=== PATIENT | female | born 1935 | race Caucasian/White ===

== ENCOUNTER → 2016-08-02 | Outpatient (CLI) | payer OTHER, MEDICARE ==
[~2016-08-02] MED LIST: ASPI81TA21 PO; CHOL1000 PO; LEVO112T2 PO; LISI10TA PO; METO25TA56 PO; MULT-506 PO; NAPR1TAB9 PO; NTRGSL/4 UT; OXYC1TAB3 PO; PRILOSEC PO; PRLSR20 PO; SENN8.6T7 PO; SIMV40TA2 PO
[2016-08-02 12:25] LABS: ALT/SGPT 15 U/L (12-78); BLOOD UREA NITROGEN 16 mg/dl (7-18); BUN/CREATININE RATIO 19.8 (10-20); CALCIUM 9.5 mg/dl (8.5-10.1); CARBON DIOXIDE 24 mmol/L (21-32); CHLORIDE 108 mmol/L (98-107); CHOLESTEROL 153 mg/dl (0-200); CREATININE 0.81 mg/dl (0.60-1.20); GLUCOSE 98 mg/dl (70-99); POTASSIUM 4.3 mmol/L (3.5-5.1); SODIUM 141 mmol/L (136-145)
[2016-08-02 12:35] LABS: ALKALINE PHOSPHATASE 68 U/L (45-117); AST/SGOT 18 U/L (15-37); CHOLESTEROL/HDL RATIO 2.2; HDL CHOLESTEROL 70 mg/dl; LDL CHOLESTEROL CALCULATED 59 mg/dl; TRIGLYCERIDES 118 mg/dl (0-150); VERY LOW DENSITY LIPOPROT CALC 24 mg/dl
[2016-08-02 12:40] LABS: ESTIMATED AVERAGE GLUCOSE 128 mg/dl; HA1C FLAG Normal (Normal)
== END | disposition home or self-care (01) ==
LOC: C.LABBFT 07:40
PROVIDERS: ATTEND Nurse Practitioner
DX: R73.01 Impaired fasting glucose (principal); E03.9 Hypothyroidism, unspecified

== ENCOUNTER → 2016-08-15 | Outpatient (CLI) | payer OTHER, MEDICARE ==
--- NOTE | 2016-08-15 11:29 | DIAGNOSTIC IMAGING REPORT ---
LEG LENGTH STUDY (WHOLE LEG) CLINICAL HISTORY: LUMBAR, SACROILIITIS, LEG LENGTH DISCREPANCY COMPARISON STUDY: Pelvis 07/05/2016. 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 There are cortical plates and screws within the distal right fibula and tibia transfixing old, healed fractures. The bones are diffusely osteopenic. Chondrocalcinosis within the bilateral knees with moderate to severe osteoarthritis. No acute fracture or dislocation within the bilateral lower extremities. The right lower extremity hardware appears intact. Mild osteoarthritis within the left hip, unchanged. The pelvis appears normally aligned. The bilateral lower extremities or essentially symmetric in length measured from the superior acetabula through the tibial plafonds. Both legs measure 86.7 cm. The right and left femurs and tibia are also similar in length. IMPRESSION: Overall, similar length of bilateral lower extremities. Additional findings as described above. Electronically signed by: Jevon Kenny M.D. 08/15/2016 11:28 AM Dictated Date/Time: 08/15/2016 11:22 AM
== END | disposition home or self-care (01) ==
LOC: C.RADBC 10:58
PROVIDERS: ATTEND Anesthesiology
DX: M54.5 Low back pain (principal); M46.1 Sacroiliitis, not elsewhere classified; M21.70 Unequal limb length (acquired), unspecified site

== ENCOUNTER → 2016-11-08 | Outpatient (CLI) | payer OTHER, MEDICARE ==
[~2016-11-08] MED LIST changes: -OXYC1TAB3 PO; -PRILOSEC PO
[2016-11-08 13:00] LABS: ALB/GLOB RATIO 1.2 (0.9-2); ALKALINE PHOSPHATASE 55 U/L (45-117); ALT/SGPT 15 U/L (12-78); AST/SGOT 14 U/L (15-37); BLOOD UREA NITROGEN 20 mg/dl (7-18); CARBON DIOXIDE 26 mmol/L (21-32); CHLORIDE 110 mmol/L (98-107); CHOLESTEROL 153 mg/dl (0-200); CREATININE 0.74 mg/dl (0.60-1.20); GLUCOSE 93 mg/dl (70-99); POTASSIUM 4.1 mmol/L (3.5-5.1); SODIUM 143 mmol/L (136-145); TRIGLYCERIDES 80 mg/dl (0-150); VERY LOW DENSITY LIPOPROT CALC 16 mg/dl
[2016-11-08 13:01] LABS: CHOLESTEROL/HDL RATIO 2.1; HDL CHOLESTEROL 74 mg/dl; LDL CHOLESTEROL CALCULATED 63 mg/dl
[2016-11-08 13:06] LABS: CALCIUM 9.8 mg/dl (8.5-10.1)
[2016-11-08 13:08] LABS: ESTIMATED AVERAGE GLUCOSE 128 mg/dl; HA1C FLAG Normal (Normal)
== END | disposition home or self-care (01) ==
LOC: C.LABBFT 07:53
PROVIDERS: ATTEND Nurse Practitioner
DX: E78.5 Hyperlipidemia, unspecified (principal); R73.01 Impaired fasting glucose

== ENCOUNTER → 2017-07-18 | Outpatient (CLI) | payer OTHER, MEDICARE ==
[~2017-07-18] MED LIST changes: +ASPI-319 PO; -ASPI81TA21 PO; +METH4PAK PO; +OXYC-90 PO; -PRLSR20 PO; -SENN8.6T7 PO
== END | disposition home or self-care (01) ==
LOC: C.LABBFT 10:19
PROVIDERS: ATTEND Nurse Practitioner
DX: E03.9 Hypothyroidism, unspecified (principal)

== ENCOUNTER 2017-07-30 01:14 | Emergency (ER) | payer OTHER, MEDICARE ==
[~2017-07-30] VITALS: Ht 162.6 cm; Wt 77.6 kg
[~2017-07-30 01:14] MED LIST changes: -ASPI-319 PO; +ASPI81TA21 PO; -METH4PAK PO; -OXYC-90 PO
[2017-07-30 01:17] VITALS: TEMP 36.4; Ht 162.6 cm; Wt 77.6 kg
[2017-07-30] MEDS ORDERED: DiphenhydrAMINE HCL 50 MG/ML VIAL IV STA (02:04)
[2017-07-30] MEDS ORDERED: FAMOTIDINE 20MG/5ML IV PUSH IV STA (02:04)
--- NOTE | 2017-07-30 02:05 | EMERGENCY ROOM VISIT NOTE ---
History Report prepared by Tristan: Danielle Wu Under the Supervision of: Whit PerryO. First contact with patient: 01:41 Chief Complaint: RASH Stated Complaint: RASH,ITCHY History of Present Illness The patient is a 81 year old female who presents to the Emergency Room with complaints of a worsening rash beginning about six hours ago. The patient states that her rash started on her right arm and has since spread to her abdomen, pelvis, back, and bilateral arms. She states the rash is itchy but she denies any oozing or weeping from the rash. The patient is unsure of what could have caused the rash. She denies any recent changes in her daily routine. She denies any new lotions, supplements, medications, foods, or recent travel. Pt denies headache, change in vision, fevers, chest pain, shortness of breath, nausea, vomiting, diarrhea, pain with urination, and melena. The only change the patient can think of is that she started using CBD oil two months ago. Source of History: patient Onset: 6 hours ago Position: other (generalized) Quality: other (rash) Timing: worsening Associated Symptoms: No fevers, No headache, No chest pain, No SOB, No nausea, No vomiting, No abdominal pain, No diarrhea Review of Systems See HPI for pertinent positives & negatives. A total of 10 systems reviewed and were otherwise negative. Past Medical & Surgical Medical Problems: (1) Hx of myocardial infarction (2) Hypertension (3) Spinal stenosis Surgical Problems: (1) History of cataract surgery Family History Diabetes mellitus FH: cancer FH: heart disease Hypertension Social History Smoking Status: Never Smoker Alcohol Use: none Housing Status: lives alone Occupation Status: retired Current/Historical Medications Scheduled Aspirin Enteric Coated (Ecotrin Or Generic), 81 MG PO LUNCH Cholecalciferol (Vitamin D3), 1 TAB PO DAILY Levothyroxine Sodium (Synthroid), 112 MCG PO QAM Lisinopril (Prinivil), 10 MG PO QPM Metoprolol Tartrate (Lopressor) (Lopressor), 50 MG PO BID Multivitamin (Multivitamin), 1 TAB PO LUNCH Nitroglycerin (Nitrostat), 0.4 MG UT PRN Simvastatin (Zocor), 40 MG PO HS Scheduled PRN Naproxen (Aleve), 220 MG PO Q12 PRN for Pain Allergies Coded Allergies: No Known Allergies (Verified , 10/03/16) Physical Exam Vital Signs Date Time Temp Pulse Resp B/P (MAP) Pulse Ox O2 Delivery O2 Flow Rate FiO2 07/30/17 03:15 61 16 157/79 98 Room Air 07/30/17 02:36 58 18 168/82 98 Room Air 07/30/17 01:17 36.4 64 18 157/83 97 Room Air Physical Exam GENERAL: alert, well appearing, well nourished, no distress, non-toxic EYE EXAM: normal conjunctiva, PERRL and EOM's grossly intact OROPHARYNX: no exudate, no erythema, lips, buccal mucosa, and tongue normal and mucous membranes are moist NECK: supple, no nuchal rigidity, no adenopathy, non-tender LUNGS: Clear to auscultation. Normal chest wall mechanics HEART: no murmurs, S1 normal and S2 normal ABDOMEN: abdomen soft, non-tender, normo-active bowel sounds, no masses, no rebound or guarding. BACK: Back is symmetrical on inspection and there is no deformity, no midline tenderness, no CVA tenderness. SKIN: diffuse urticaria, no vesicles, no bullae, no sloughing, no petechiae UPPER EXTREMITIES: upper extremities are grossly normal. LOWER EXTREMITIES: No pitting edema. NEURO EXAM: Normal sensorium, cranial nerves II-XII grossly intact, normal speech, no gross weakness of arms, no gross weakness of legs. Medical Decision & Procedures Medications Administered Medications (Trade) Dose Ordered Sig/Torrey Route Start Time Stop Time Status Last Admin Dose Admin Diphenhydramine HCl (Benadryl Inj) 25 mg NOW STAT IV 07/30/17 02:04 07/30/17 02:05 DC 07/30/17 02:12 25 MG Famotidine (Pepcid 20mg Iv Push) 20 mg ONE STAT IV 07/30/17 02:04 07/30/17 02:05 DC 07/30/17 02:12 20 MG Dexamethasone Sodium Phosphate (Decadron Inj) 10 mg NOW STAT IV 07/30/17 02:55 07/30/17 02:57 DC 07/30/17 03:01 10 MG ED Course 0151: The patient was evaluated in room A3. A complete history and physical exam was performed. 0204: Ordered Famotidine 20 mg IV, Benadryl Inj 25 mg IV. 0252: On reassessment, the patient still has a mild rash. She states she is feeling much better. 0255: Ordered Decadron Inj 10 mg IV. 311: Upon reevaluation, the patient is feeling better. I discussed the findings and the treatment plan with the patient. She verbalizes agreement and understanding. The patient was discharged home. Medical Decision Differential diagnosis: Etiologies such as contact dermatitis, viral exanthem, urticaria, allergic reaction, De Los Santos-Raj syndrome, toxic epidermal necrolysis, erythema multiforme, cellulitis, scabies, HSV, varicella, zoster, eczema, staph scalded skin syndrome, fungal infection, as well as others were entertained. Patient with apparent allergic reaction of unknown etiology. I do not suspect De Los Santos-Raj syndrome or [place]. Rash not consistent in appearance with erythema multiforme, cellulitis, shingles, measles, no other evidence or recent symptoms to suggest additional infectious etiology. Patient responded well here to famotidine and diphenhydramine. Discussed with her close follow-up with family doctor, use of those medications from [id number] at home, symptoms to watch and return for, she verbalized understanding was agreeable with plan. No involvement of the patient's face or airway, no other systemic symptoms beyond the rash to otherwise suggest anaphylaxis. Medication Reconcilliation Current Medication List: was personally reviewed by me Blood Pressure Screening Patient's blood pressure: Elevated blood pressure Blood pressure disposition: Elevated BP felt to be situational Impression Primary Impression: Urticaria Additional Impression: Allergic reaction Scribe Attestation The scribe's documentation has been prepared under my direction and personally reviewed by me in its entirety. I confirm that the note above accurately reflects all work, treatment, procedures, and medical decision making performed by me. Departure Information Dispostion Home / Self-Care Referrals Lorenza Alcantara, C.R.N.P. (PCP) Forms HOME CARE DOCUMENTATION FORM, IMPORTANT VISIT INFORMATION, WORK / SCHOOL INSTRUCTIONS Patient Instructions My [facility] Additional Instructions Please follow-up with your family doctor. Please continue your normal medications as prescribed. You may use diphenhydramine (Benadryl) up to every 6 -8 hours. Please take it over the next 48 hours to prevent a rebound reaction and then use as needed after that. Famotidine (pepcid) is over the counter and may be used also. If you develop a worsening rash, develop facial/tongue swelling, trouble swallowing, trouble speaking, trouble breathing, chest pain, dizziness, the rash begins to have blisters or is weeping, or you have any other new concerns, please return to the emergency room. Problem Qualifiers Additional Impression: Allergic reaction Encounter type: initial encounter Qualified Codes: T78.40XA - Allergy, unspecified, initial encounter
[2017-07-30] MEDS ORDERED: DEXAMETHASONE SOD INJ 4 MG/ML VIAL IV STA (02:55)
[2017-07-30 03:15] VITALS: BP 157/79; PULSE 61; O2SAT 98
== END 2017-07-30 03:18 | disposition home or self-care (01) ==
LOC: C.EDB 01:15 → C.EDA 03:18
DX: L50.9 Urticaria, unspecified (principal); T78.40XA Allergy, unspecified, initial encounter; X58.XXXA Exposure to other specified factors, initial encounter; I25.2 Old myocardial infarction; I10 Essential (primary) hypertension; M48.00 Spinal stenosis, site unspecified; Z83.3 Family history of diabetes mellitus; Z80.9 Family history of malignant neoplasm, unspecified; Z82.49 Family history of ischemic heart disease and other diseases of the circulatory system; Z79.82 Long term (current) use of aspirin; Z79.899 Other long term (current) drug therapy

== ENCOUNTER 2017-08-20 11:47 | Emergency (ER) | payer OTHER, MEDICARE ==
[~2017-08-20] VITALS: Ht 162.6 cm; Wt 79.0 kg
[2017-08-20 12:17] VITALS: TEMP 37.9; Ht 162.6 cm; Wt 79.0 kg
[2017-08-20] MEDS ORDERED: ONDANSETRON INJ 2 MG/ML 2 ML VIAL IV STA (12:33)
[2017-08-20] MEDS ORDERED: DEXAMETHASONE INJ 10 MG in SYRINGE 0 ML IV STA (12:33)
[2017-08-20] MEDS ORDERED: MoRPHine SULFATE 4 MG/ML 1 ML CARP\\VIAL IV STA ×2 (12:33→14:44)
[2017-08-20] MEDS ORDERED: OXYC1TAB3 PO (12:42)
[2017-08-20 13:13] LABS: BASO % 0.2 %; BASO ABS # 0.02 K/uL (0-0.2); EOS % 0.1 %; EOS ABS # 0.01 K/uL (0-0.5); HEMATOCRIT 39.4 % (37-47); HEMOGLOBIN 12.9 g/dL (12.0-16.0); IG# 0.01 K/uL (0.00-0.02); LYMPH % 14.8 %; LYMPH ABS # 1.19 K/uL (1.2-3.4); MEAN CORPUSCULAR HEMOGLOBIN 28.2 pg (25-34); MEAN CORPUSCULAR HGB CONC 32.7 g/dl (32-36); MEAN PLATELET VOLUME 9.9 fL (7.4-10.4); MONO % 14.4 %; MONO ABS # 1.16 K/uL (0.11-0.59); NEUT % 70.4 %; NEUT ABS # 5.67 K/uL (1.4-6.5); PLATELET COUNT 143 K/uL (130-400); RED CELL DISTRIBUTION WIDTH CV 15.7 % (11.5-14.5); RED CELL DISTRIBUTION WIDTH SD 49.4 fL (36.4-46.3); WHITE BLOOD COUNT 8.06 K/uL (4.8-10.8)
[2017-08-20 13:25] LABS: PTT PATIENT 27.1 SECONDS (21.0-31.0)
[2017-08-20 13:30] LABS: CALCIUM 9.2 mg/dl (8.5-10.1); CREATININE 0.71 mg/dl (0.60-1.20); POTASSIUM 3.8 mmol/L (3.5-5.1)
--- NOTE | 2017-08-20 13:43 | DIAGNOSTIC IMAGING REPORT ---
L-SPINE MIN 4 VIEWS ROUTINE HISTORY: 81 years-old Female low back pain chronic low back pain without reported trauma COMPARISON: Lumbar spine CT 06/11/2016 TECHNIQUE: 5 views of the lumbar spine FINDINGS: Levoscoliosis of the lumbar spine redemonstrated. The bones appear moderately demineralized. Severe multilevel intervertebral space narrowing, facet arthrosis and endplate spurring. There is progressive anterior endplate compression deformity of the L1 vertebral body, now 30%, recently 20% on study dated 06/11/2016. Right hip arthroplasty partially imaged. Moderate stool volume of the right hemicolon. Atherosclerosis of the aorta. IMPRESSION: 1. Age-indeterminate progressive anterior endplate compression deformity of the L1 vertebral body, now measuring 30% which has worsened from comparison CT 06/11/2016. 2. Levoscoliosis with severe multilevel intervertebral disc space narrowing, endplate spurring and facet arthrosis. 3. Moderately demineralized appearance of the bones. The above report was generated using voice recognition software. It may contain grammatical, syntax or spelling errors. Electronically signed by: Kelvin Matt M.D. 08/20/2017 1:42 PM Dictated Date/Time: 08/20/2017 1:38 PM
[2017-08-20 15:03] VITALS: BP 132/66; PULSE 81; O2SAT 95
--- NOTE | 2017-08-20 15:51 | DIAGNOSTIC IMAGING REPORT ---
L VENOUS DOPP LOWER EXT UNILAT CLINICAL HISTORY: 81 years-old Female presenting with lower leg pain and swelling. TECHNIQUE: Real-time grayscale and color and spectral Doppler ultrasound imaging of the veins of the left lower extremity was performed. Compression and augmentation were also utilized. COMPARISON: None. FINDINGS: Left: Common femoral vein: Patent. Greater saphenous vein: Patent. Deep femoral vein: Patent. Femoral vein: Patent. Popliteal vein: Patent. Calf veins: Patent. Other: None. IMPRESSION: No evidence of deep venous thrombosis. Electronically signed by: Rex Barnett M.D. 08/20/2017 3:50 PM Dictated Date/Time: 08/20/2017 3:49 PM
[2017-08-20] MEDS ORDERED: METH4PAK PO (16:29)
--- NOTE | 2017-08-20 16:31 | EMERGENCY ROOM VISIT NOTE ---
History First contact with patient: 12:24 Chief Complaint: BACK PAIN Stated Complaint: BACK PAIN,SEVERE, LEG PAIN History of Present Illness The patient is a 81 year old female who presents to the Emergency Room with complaints of low back pain and left leg pain. The patient states she has a history of chronic back pain but states on Sunday night she reached for a car handle and since that time has increased pain in her lower back and in her left leg. She states it was difficult to ambulate due to the pain in her left leg. The patient has been seen at the pain clinic in the past for her chronic low back pain. She took her oxycodone as directed without any relief of the pain. The patient also states that she has chronic left leg swelling but usually it is not painful. The patient denies any recent travel but does sit a lot at home. The patient is not a smoker. She is not on any hormones. The patient denies any prior DVTs. Review of Systems 10 system review was performed and was negative unless stated otherwise history of present illness. Past Medical/Surgical History Medical Problems: (1) Hx of myocardial infarction (2) Hypertension (3) Spinal stenosis Surgical Problems: (1) History of cataract surgery Family History Diabetes mellitus FH: cancer FH: heart disease Hypertension Social History Smoking Status: Never Smoker Alcohol Use: none Housing Status: lives alone Occupation Status: retired Current/Historical Medications Scheduled Aspirin Enteric Coated (Ecotrin Or Generic), 81 MG PO LUNCH Cholecalciferol (Vitamin D3), 1 TAB PO DAILY Levothyroxine Sodium (Synthroid), 112 MCG PO QAM Lisinopril (Prinivil), 10 MG PO QPM Metoprolol Tartrate (Lopressor) (Lopressor), 50 MG PO BID Multivitamin (Multivitamin), 1 TAB PO LUNCH Nitroglycerin (Nitrostat), 0.4 MG UT PRN Simvastatin (Zocor), 40 MG PO HS Scheduled PRN Oxycodone Ir (Roxicodone Ir), 5 MG PO Q8 PRN for Severe Pain Physical Exam Vital Signs Date Time Temp Pulse Resp B/P (MAP) Pulse Ox O2 Delivery O2 Flow Rate FiO2 08/20/17 15:03 81 18 132/66 95 Room Air 08/20/17 12:17 37.9 92 18 143/76 94 Room Air Physical Exam PHYSICAL EXAM: Vital Signs normal: Reviewed Nurse's notes and agree. GEN.: 81- year-old white female appears uncomfortable secondary to pain. MENTAL STATUS: Alert and oriented in no acute distress. LUNGS: Clear to auscultation without wheezes rales or rhonchi. CARDIAC: Regular rate and rhythm without murmur. LUMBAR SPINE: No gross bony abnormality noted. Patient is tender to palpation over the mid to lower spinous processes. She is also tender to palpation the paravertebral regions bilaterally at this level. The patient was unable to ambulate. Limited exam secondary to patient's pain and mobility. Left leg with generalized edema but no erythema noted. The patient is severely tender to palpation over the entire lower extremity as well as in the popliteal region and posterior and medial thigh. No palpable cords noted. Medical Decision & Procedures ER Provider Diagnostic Interpretation: L VENOUS DOPP LOWER EXT UNILAT CLINICAL HISTORY: 81 years-old Female presenting with lower leg pain and swelling. TECHNIQUE: Real-time grayscale and color and spectral Doppler ultrasound imaging of the veins of the left lower extremity was performed. Compression and augmentation were also utilized. COMPARISON: None. FINDINGS: Left: Common femoral vein: Patent. Greater saphenous vein: Patent. Deep femoral vein: Patent. Femoral vein: Patent. Popliteal vein: Patent. Calf veins: Patent. Other: None. IMPRESSION: No evidence of deep venous thrombosis. Electronically signed by: Rex Barnett M.D. 08/20/2017 3:50 PM Dictated Date/Time: 08/20/2017 3:49 PM L-SPINE MIN 4 VIEWS ROUTINE HISTORY: 81 years-old Female low back pain chronic low back pain without reported trauma COMPARISON: Lumbar spine CT 06/11/2016 TECHNIQUE: 5 views of the lumbar spine FINDINGS: Levoscoliosis of the lumbar spine redemonstrated. The bones appear moderately demineralized. Severe multilevel intervertebral space narrowing, facet arthrosis and endplate spurring. There is progressive anterior endplate compression deformity of the L1 vertebral body, now 30%, recently 20% on study dated 06/11/2016. Right hip arthroplasty partially imaged. Moderate stool volume of the right hemicolon. Atherosclerosis of the aorta. IMPRESSION: 1. Age-indeterminate progressive anterior endplate compression deformity of the L1 vertebral body, now measuring 30% which has worsened from comparison CT 06/11/2016. 2. Levoscoliosis with severe multilevel intervertebral disc space narrowing, endplate spurring and facet arthrosis. 3. Moderately demineralized appearance of the bones. The above report was generated using voice recognition software. It may contain grammatical, syntax or spelling errors. Laboratory Results 08/20/17 12:55 Red Blood Count 4.58, Mean Corpuscular Volume 86.0, Mean Corpuscular Hemoglobin 28.2, Mean Corpuscular Hemoglobin Concent 32.7, Mean Platelet Volume 9.9, Neutrophils (%) (Auto) 70.4, Lymphocytes (%) (Auto) 14.8, Monocytes (%) (Auto) 14.4, Eosinophils (%) (Auto) 0.1, Basophils (%) (Auto) 0.2, Neutrophils # (Auto ) 5.67, Lymphocytes # (Auto) 1.19, Monocytes # (Auto) 1.16, Eosinophils # (Auto ) 0.01, Basophils # (Auto) 0.02 08/20/17 12:55 Test 08/20/17 12:55 White Blood Count 8.06 K/uL (4.8-10.8) Red Blood Count 4.58 M/uL (4.2-5.4) Hemoglobin 12.9 g/dL (12.0-16.0) Hematocrit 39.4 % (37-47) Mean Corpuscular Volume 86.0 fL (80-100) Mean Corpuscular Hemoglobin 28.2 pg (25-34) Mean Corpuscular Hemoglobin Concent 32.7 g/dl (32-36) Platelet Count 143 K/uL (130-400) Mean Platelet Volume 9.9 fL (7.4-10.4) Neutrophils (%) (Auto) 70.4 % Lymphocytes (%) (Auto) 14.8 % Monocytes (%) (Auto) 14.4 % Eosinophils (%) (Auto) 0.1 % Basophils (%) (Auto) 0.2 % Neutrophils # (Auto) 5.67 K/uL (1.4-6.5) Lymphocytes # (Auto) 1.19 K/uL (1.2-3.4) Monocytes # (Auto) 1.16 K/uL (0.11-0.59) Eosinophils # (Auto) 0.01 K/uL (0-0.5) Basophils # (Auto) 0.02 K/uL (0-0.2) RDW Standard Deviation 49.4 fL (36.4-46.3) RDW Coefficient of Variation 15.7 % (11.5-14.5) Immature Granulocyte % (Auto) 0.1 % Immature Granulocyte # (Auto) 0.01 K/uL (0.00-0.02) Prothrombin Time 10.6 SECONDS (9.0-12.0) Prothromb Time International Ratio 1.0 (0.9-1.1) Activated Partial Thromboplast Time 27.1 SECONDS (21.0-31.0) Partial Thromboplastin Ratio 1.0 Anion Gap 9.0 mmol/L (3-11) Est Creatinine Clear Calc Drug Dose 62.1 ml/min Estimated GFR () 91.9 Estimated GFR (Non- 79.3 BUN/Creatinine Ratio 23.5 (10-20) Calcium Level 9.2 mg/dl (8.5-10.1) Medications Administered Medications (Trade) Dose Ordered Sig/Torrey Route Start Time Stop Time Status Last Admin Dose Admin Dexamethasone Sodium Phosphate 10 mg/Syringe 2.5 ml @ 1 mls/min NOW STAT IV 08/20/17 12:33 08/20/17 12:37 DC 08/20/17 13:05 1 MLS/MIN Morphine Sulfate (MoRPHine SULFATE INJ) 4 mg NOW STAT IV 08/20/17 12:33 08/20/17 12:37 DC 08/20/17 13:05 4 MG Ondansetron HCl (Zofran Inj) 4 mg NOW STAT IV 08/20/17 12:33 08/20/17 12:37 DC 08/20/17 13:05 4 MG Morphine Sulfate (MoRPHine SULFATE INJ) 4 mg NOW STAT IV 08/20/17 14:44 08/20/17 14:45 DC 08/20/17 14:44 4 MG ED Course IV access was obtained. CBC and differential, renal profile and coags were ordered. The patient was given morphine 4 mg IV for pain and Zofran 4 mg IV push for associated nausea. She was also given Decadron 10 mg IV. X-ray of the lumbar spine was ordered interpreted by the radiologist as above without any acute findings. Labs are reviewed and were unremarkable.. The patient was informed of the lab findings. The patient stated she was still in a lot of pain and therefore she was given additional 4 mg of morphine IV. Venous Doppler ultrasound the left lower extremity was ordered and interpreted by the radiologist as above without any evidence of DVT. The patient's case was discussed with Dr. Hernandez who independently evaluated the patient and agree with treatment plan. The patient was informed of the findings and discharged home with her daughter driving. Medical Decision Differential diagnosis include compression fracture of the lumbar spine, sciatica, DVT, superficial phlebitis [place] Drug Monitoring Program Search Results: patient reviewed within database Medication Reconcilliation Current Medication List: was personally reviewed by me Blood Pressure Screening Patient's blood pressure: Elevated blood pressure Blood pressure disposition: Elevated BP felt to be situational Impression Primary Impression: Lumbar back pain Additional Impression: Left leg pain Departure Information Dispostion Home / Self-Care Condition GOOD Prescriptions Methylprednisolone (MEDROL DOSEPAK) 4 Mg Ankur 0 PO DAILY, #1 PKT Prov: Jennifer Camargo PA-C 08/20/17 Referrals Lorenza Alcantara, C.R.N.P. (PCP) Forms HOME CARE DOCUMENTATION FORM, IMPORTANT VISIT INFORMATION Patient Instructions My [facility] Additional Instructions Take Medrol dosepak as prescribed. Tylenol 500 mg every 4 hours for pain. Increase OxyIR to 10 mg every 8 hours. Follow-up with your family doctor in 2- 3 days for reevaluation. Problem Qualifiers
== END 2017-08-20 16:32 | disposition home or self-care (01) ==
LOC: C.EDB 11:48 → C.EDD 16:32
DX: M54.5 Low back pain (principal); M79.605 Pain in left leg; I10 Essential (primary) hypertension; I25.2 Old myocardial infarction; Z98.49 Cataract extraction status, unspecified eye; Z83.3 Family history of diabetes mellitus; Z82.49 Family history of ischemic heart disease and other diseases of the circulatory system; Z79.82 Long term (current) use of aspirin; Z79.899 Other long term (current) drug therapy

== ENCOUNTER → 2017-11-19 | Outpatient (CLI) | payer OTHER, MEDICARE ==
[~2017-11-19] MED LIST changes: +ASPI-319 PO; -ASPI81TA21 PO; -NAPR1TAB9 PO; +OXYC1TAB3 PO
[2017-11-19 12:11] LABS: HEMATOCRIT 39.8 % (37-47); HEMOGLOBIN 12.7 g/dL (12.0-16.0); MEAN CELL VOLUME 88.4 fL (80-100); MEAN CORPUSCULAR HEMOGLOBIN 28.2 pg (25-34); MEAN CORPUSCULAR HGB CONC 31.9 g/dl (32-36); MEAN PLATELET VOLUME 9.9 fL (7.4-10.4); PLATELET COUNT 181 K/uL (130-400); RED CELL DISTRIBUTION WIDTH CV 15.9 % (11.5-14.5); RED CELL DISTRIBUTION WIDTH SD 51.3 fL (36.4-46.3)
[2017-11-19 12:37] LABS: ALBUMIN 3.3 gm/dl (3.4-5.0); ALT/SGPT 14 U/L (12-78); BLOOD UREA NITROGEN 16 mg/dl (7-18); CARBON DIOXIDE 26 mmol/L (21-32); CREATININE 0.75 mg/dl (0.60-1.20); GLUCOSE 97 mg/dl (70-99); POTASSIUM 4.3 mmol/L (3.5-5.1); SODIUM 140 mmol/L (136-145)
[2017-11-19 12:52] LABS: ALKALINE PHOSPHATASE 68 U/L (45-117); AST/SGOT 16 U/L (15-37); TOTAL PROTEIN 7.2 gm/dl (6.4-8.2)
== END | disposition home or self-care (01) ==
LOC: C.LABBFT 08:14
PROVIDERS: ATTEND Nurse Practitioner
DX: I25.10 Atherosclerotic heart disease of native coronary artery without angina pectoris (principal); E03.9 Hypothyroidism, unspecified

== ENCOUNTER → 2018-01-31 | Outpatient (CLI) | payer OTHER, MEDICARE ==
[~2018-01-31] MED LIST changes: +OXYC-90 PO; -OXYC1TAB3 PO
--- NOTE | 2018-01-31 10:13 | DIAGNOSTIC IMAGING REPORT ---
CHEST 2 VIEWS ROUTINE HISTORY: R06.02 Shortness of breath COMPARISON: Chest 05/25/2012. FINDINGS: The lungs remain mildly hyperexpanded. The heart remains mildly enlarged. No focal lung consolidations to suggest pneumonia. No evidence for pulmonary edema. No pleural effusions. No pneumothorax. IMPRESSION: No significant change compared to the prior study. No acute process. Stable mild cardiomegaly. Electronically signed by: Jevon Kenny M.D. 01/31/2018 10:12 AM Dictated Date/Time: 01/31/2018 10:10 AM
[2018-01-31 10:30] LABS: BASO % 0.5 %; BASO ABS # 0.03 K/uL (0-0.2); EOS % 1.3 %; EOS ABS # 0.08 K/uL (0-0.5); HEMATOCRIT 38.1 % (37-47); HEMOGLOBIN 12.3 g/dL (12.0-16.0); IG# 0.01 K/uL (0.00-0.02); LYMPH % 27.7 %; LYMPH ABS # 1.67 K/uL (1.2-3.4); MEAN CELL VOLUME 87.2 fL (80-100); MEAN CORPUSCULAR HEMOGLOBIN 28.1 pg (25-34); MEAN CORPUSCULAR HGB CONC 32.3 g/dl (32-36); MEAN PLATELET VOLUME 10.6 fL (7.4-10.4); MONO % 11.5 %; MONO ABS # 0.69 K/uL (0.11-0.59); NEUT % 58.8 %; NEUT ABS # 3.54 K/uL (1.4-6.5); PLATELET COUNT 149 K/uL (130-400); RED CELL DISTRIBUTION WIDTH CV 15.2 % (11.5-14.5); RED CELL DISTRIBUTION WIDTH SD 48.2 fL (36.4-46.3); WHITE BLOOD COUNT 6.02 K/uL (4.8-10.8)
[2018-01-31 12:56] LABS: BLOOD UREA NITROGEN 14 mg/dl (7-18); CALCIUM 9.1 mg/dl (8.5-10.1); CARBON DIOXIDE 27 mmol/L (21-32); CREATININE 0.76 mg/dl (0.60-1.20); GLUCOSE 95 mg/dl (70-99); POTASSIUM 4.1 mmol/L (3.5-5.1); SODIUM 140 mmol/L (136-145)
== END | disposition home or self-care (01) ==
LOC: C.RAD 09:23
PROVIDERS: ATTEND Nurse Practitioner
DX: R06.02 Shortness of breath (principal)

== ENCOUNTER → 2018-02-08 | Outpatient (CLI) | payer OTHER, MEDICARE ==
--- NOTE | 2018-02-12 15:08 | ECHOCARDIOGRAM REPORT ---
*NOTICE TO RECEIVING LIBERTARIAN AGENCY This information is strictly Confidential and protected under [place] law. [place] law prohibits you from making any further disclosure of this information unless further disclosure is expressly permitted by the written consent of the person to whom it pertains or is authorized by law. A general authorization for the release of medical or other information is not sufficient for this purpose. Hospital accepts no responsibility if the information is made available to any other person, INCLUDING THE PATIENT. Interpretation Summary * Name: JIMMIE WALTER Study Date: 02/08/2018 02:52 PM BP: 141/49 mmHg * Patient Location: [facility] HR: 58 * : 1935 (M/d/yyyy) Gender: Female Height: 66 in * Age: 82 yrs Ethnicity: CA Weight: 164 lb * Ordering Physician: Lorenza Alcantara * Referring Physician: Lorenza Alcantara * Performed By: Agnieszka Sterling RDCS * * Reason For Study: SOB * BSA: 1.8 m2 * -- Conclusions -- * There is severe calcific aortic valve stenosis. * There is moderate concentric left ventricular hypertrophy. * Ejection Fraction = >70 %. * The right ventricular systolic function is normal. * The left atrium is severely dilated. * The right atrium is severely dilated. Procedure Details * A complete two-dimensional transthoracic echocardiogram was performed (2D, M-mode, Doppler and color flow Doppler). Left Ventricle * The left ventricle is normal in size. * There is moderate concentric left ventricular hypertrophy. * Ejection Fraction = >70 %. Right Ventricle * The right ventricle is normal size. * The right ventricular systolic function is normal. Atria * The left atrium is severely dilated. * The right atrium is severely dilated. * No ASD detected; PFO is not assessed. Mitral Valve * The mitral valve anatomy is normal. * There is mild mitral annular calcification. * There is mild mitral regurgitation. Tricuspid Valve * The tricuspid valve anatomy is normal. * There is mild to moderate tricuspid regurgitation. Aortic Valve * Heavily calcified aortic valve. * There is severe calcific aortic valve stenosis. * There is no significant aortic regurgitation. Pulmonic Valve * The pulmonic valve is not well seen, but is grossly normal. * Trace pulmonic valvular regurgitation. Great Vessels * The aortic root and proximal ascending aorta are normal sized. Pericardium/Pleural * There is no pericardial effusion. MMode 2D Measurements and Calculations IVSd 1.4 cm IVSs 1.4 cm LVIDd 4.1 cm LVIDs 2.3 cm LVPWd 1.7 cm LVPWs 2.3 cm IVS/LVPW 0.83 FS 43.6 % EDV(Teich) 74.0 ml ESV(Teich) 18.3 ml EF(Teich) 75.2 % EDV(cubed) 68.7 ml ESV(cubed) 12.3 ml EF(cubed) 82.0 % % IVS thick -1.52 % % LVPW thick 38.3 % LV mass(C)d 254.8 grams LV mass(C)dI 138.6 grams/m\S\2 LV mass(C)s 174.7 grams LV mass(C)sI 95.1 grams/m\S\2 SV(Teich) 55.7 ml SI(Teich) 30.3 ml/m\S\2 SV(cubed) 56.3 ml SI(cubed) 30.6 ml/m\S\2 ACS 1.1 cm LA dimension 5.0 cm asc Aorta Diam 2.9 cm LVOT diam 1.2 cm LVOT area 1.2 cm\S\2 LVAd ap4 23.6 cm\S\2 LVLd ap4 6.8 cm EDV(MOD-sp4) 68.0 ml EDV(sp4-el) 69.5 ml LVAs ap4 9.7 cm\S\2 LVLs ap4 4.6 cm ESV(MOD-sp4) 19.0 ml ESV(sp4-el) 17.4 ml EF(MOD-sp4) 72.0 % EF(sp4-el) 75.0 % LVAd ap2 24.5 cm\S\2 LVLd ap2 6.7 cm EDV(MOD-sp2) 78.4 ml EDV(sp2-el) 75.8 ml LVAs ap2 11.1 cm\S\2 LVLs ap2 4.8 cm ESV(MOD-sp2) 21.8 ml ESV(sp2-el) 21.7 ml EF(MOD-sp2) 72.1 % EF(sp2-el) 71.3 % LVLd %diff -1.49 % EDV(MOD-bp) 74.3 ml LVLs %diff 4.8 % ESV(MOD-bp) 21.0 ml EF(MOD-bp) 71.7 % SV(MOD-sp4) 49.0 ml SI(MOD-sp4) 26.6 ml/m\S\2 SV(MOD-sp2) 56.5 ml SI(MOD-sp2) 30.7 ml/m\S\2 SV(MOD-bp) 53.3 ml SI(MOD-bp) 29.0 ml/m\S\2 SV(sp4-el) 52.2 ml SI(sp4-el) 28.4 ml/m\S\2 SV(sp2-el) 54.1 ml SI(sp2-el) 29.4 ml/m\S\2 Doppler Measurements and Calculations MV E max ally 153.1 cm/sec MV A max ally 68.5 cm/sec MV E/A 2.2 MV dec time 0.33 sec Ao V2 max 158.8 cm/sec Ao max PG 10.1 mmHg Ao max PG (full) 4.7 mmHg KENAN(V,A) 0.89 cm\S\2 KENAN(V,D) 0.89 cm\S\2 AI max ally 384.8 cm/sec AI max PG 59.2 mmHg AI dec slope 114.4 cm/sec\S\2 AI P1/2t 984.9 msec LV V1 max PG 5.4 mmHg LV V1 max 116.4 cm/sec MR max ally 580.2 cm/sec MR max PG 134.7 mmHg PA V2 max 65.2 cm/sec PA max PG 1.7 mmHg PI end-d ally 56.1 cm/sec TR max ally 300.7 cm/sec
== END | disposition home or self-care (01) ==
LOC: C.CPL 14:41
PROVIDERS: ATTEND Nurse Practitioner
DX: R06.02 Shortness of breath (principal)

== ENCOUNTER 2019-04-21 11:35 | Inpatient (IN) ==
[2019-04-21 12:37] LABS: Basophils # (auto) 0.02 K/uL (0-0.2); Basophils % (auto) 0.3 %; Eosinophils # (auto) 0.03 K/uL (0-0.5); Eosinophils % (auto) 0.4 %; Hematocrit (blood only) 37.9 % (37-47); Hemoglobin 12.3 g/dL (12.0-16.0); Immature Granulocytes # (auto) 0.02 K/uL (0.00-0.02); Immature Granulocytes % (auto) 0.3 %; Lymphocytes # (auto) 1.57 K/uL (1.2-3.4); Lymphocytes % (auto) 23.5 %; Mean Corpuscular Hemoglobin 28.5 pg (25-34); Mean Corpuscular Hgb Conc 32.5 g/dL (32-36); Mean Corpuscular Volume 87.9 fL (80-100); Mean Platelet Volume 9.9 fL (7.4-10.4); Monocytes # (auto) 0.58 K/uL (0.11-0.59); Monocytes % (auto) 8.7 %; Neutrophils # (auto) 4.46 K/uL (1.4-6.5); Neutrophils % (auto) 66.8 %; Platelet Count 175 K/uL (130-400); RDW Coefficient of Variation 15.9 % (11.5-14.5); RDW Standard Deviation 50.7 fL (36.4-46.3); Red Blood Count 4.31 M/uL (4.2-5.4); White Blood Count 6.68 K/uL (4.8-10.8)
[2019-04-21 12:49] LABS: INR 1.2 (0.9-1.1); Partial Thromboplastin Time 26.8 Seconds (21.0-31.0); Prothrombin Time 12.1 Seconds (9.0-12.0)
[2019-04-21 12:54] LABS: Albumin Level 3.6 gm/dl (3.4-5.0); BUN Creatinine Ratio 16.5 (10-20); Calcium 9.1 mg/dl (8.5-10.1); Creatinine Clr Calc Pharmacy 38.5 ml/min; Est GFR (African American) 68.1; Est GFR (Non-African American) 58.7; Magnesium 1.8 mg/dl (1.8-2.4); Potassium 3.6 mmol/L (3.5-5.1)
[2019-04-21 13:07] LABS: Albumin Globulin Ratio 0.9 (0.9-2); Bilirubin,Total 1.1 mg/dl (0.2-1); Total Protein 7.6 gm/dl (6.4-8.2); Troponin I 0.397 ng/ml (0-0.045)
[2019-04-21] MEDS ORDERED: Heparin IV Standard *NO* Bolus IV ONE (13:16)
--- NOTE | 2019-04-21 13:17 | Ultrasound Report ---
US venous doppler LE LT CLINICAL HISTORY: 83 years-old Female presenting with Dyspnea. TECHNIQUE: Real-time grayscale and color and spectral Doppler ultrasound imaging of the veins of the left lower extremity was performed. Compression and augmentation were also utilized. COMPARISON: None. FINDINGS: LEFT: Common femoral vein: Patent. Greater saphenous vein (superficial): Patent. Deep femoral vein: Patent. Femoral vein: Patent. Popliteal vein: Patent. Calf veins: Patent. Other: Fluid collection in the anterior knee superficial to the patella measuring 5.0 x 1.3 cm. IMPRESSION: 1. No evidence of deep venous thrombosis. 2. Superficial fluid collection in the anterior knee may represent hematoma. This does not appear to be deep to the quadriceps muscle complex to suggest a distended suprapatellar recess in the setting of a joint effusion. Electronically signed by: Rex Barnett M.D. 04/21/2019 1:16 PM
--- NOTE | 2019-04-21 13:22 | XRay Report ---
XR chest 1V not portable HISTORY: Dyspnea COMPARISON: Chest 01/31/2018. FINDINGS: The cardiac silhouette is enlarged. There are trace bilateral pleural effusions. No focal l virgie consolidations to suggest pneumonia. Slight prominence of the perihilar interstitial and vascular markings. This could represent mild congestive change without overt pulmonary edema. IMPRESSION: 1. Cardiomegaly and trace bilateral pleural effusions. 2. Mild central pulmonary vascular congestion without overt edema. Electronically signed by: Jevon Kenny M.D. 04/21/2019 1:21 PM
[2019-04-21] MEDS: HEPARIN SODIUM/DEXTROSE 25,000 UNITS/500 ML BAG IV SCH (14:20)
--- NOTE | 2019-04-21 14:52 | History & Physical Report ---
Date of Service April 21, 2019 Assessment & Plan (1) Atrial fibrillation: Patient with new onset atrial fibrillation, presently rate controlled, heparin gtt initiated in ER. She has a small PFO identified by [facility] in May 2018 also with valvular heart disease, severe calcific , moderate MR and moderate/severe TR and bi-atrial dilation. Symptoms of SOB/SCHNEIDER as well as clinical findings of edema and pulmonary vascular congestion and small pleural effusions on CXR suggest some decompensated CHF. May need to consider rhythm controlling agents as patient does not seem to be tolerating her AF, she is quite complicated given her . -Admit to PCU, continuous cardiac monitoring -Check BNP -Check TSH and T4 -Trend troponin x 3 sets -Check 2D echocardiogram -Electrolyte repletion as needed -Cardiology consultation - assistance with this case appreciated -Continue Metoprolol 50mg po BID -Heparin gtt for now, transition to oral anticoagulation tomorrow -Metoprolol PRN Present on Admission?: Yes (2) Shortness of breath: Suspect some CHF in setting of new onset atrial fibrillation. No respiratory distress, adequate oxygenation on room air -Continue Lasix 20mg po daily -Lasix 40mg po x 1 additional dose - cautious diuresis in patient with severe to avoid decreased pre-load -Supplemental O2 as needed Present on Admission?: Yes (3) Elevated troponin: Troponin = 0.397. EKG with subtle TW changes in lateral leads. Patient with known history of CAD s/p proximal LAD stent placed in 2010. Repeat cardiac catheterization in May 2018 with patent stent and non-obstructive CAD -Continue ASA -Continue Simvastatin -Continue Metoprolol -Trend troponin q 8 hours -Cardiology consultation as above Present on Admission?: Yes (4) Aortic stenosis, severe: Patient clinically stable at present. Severe complicates management of AF as well as CHF -Lasix 40mg po x 1 then continue regular daily dosing -Echo as above -Cardiology consultation as above Present on Admission?: Yes (5) Coronary artery disease: As above Present on Admission?: Yes (6) Hyperlipidemia: Chronic -Continue statin Present on Admission?: Yes (7) Hypothyroidism: Chronic -Check TSH -Continue Synthroid Present on Admission?: Yes (8) Knee pain: Patient with knee pain x 2 weeks. Superficial fluid collection in anterior knee. +edema on exam, pain with palpation of knee and posterior fossa -Ortho consultation appreciated -Pain control PRN F/E/N - Heplock. Lasix as above. Monitor electrolytes and replete as needed. Heart healthy diet as tolerated Ppx - Heparin gtt as above Code - DNR/DNI per discussion with patient Dispo - Admit to PCU Present on Admission?: Yes History of Present Illness Chief Complaint: New onset atrial fibrillation Primary Care Provider: ABIGAIL Watson Ale Escobedo is a pleasant 83yo C female with history of CAD s/p NSTEMI with proximal LAD stent placement in 2010, severe calcific aortic stenosis presenting with new onset atrial fibrillation. Patient reports 2 weeks of LE edema, L > R as well as dyspnea with minimal exertion of appx 50 feet. Also with occasional SOB at rest. Also reports some exertional chest heaviness which is relieved with rest. She denies non-exertional chest discomfort, denies palpitations, orthopnea, PND, denies numbness/tingling/weakness. She was seen by her PCP, Lorenza Alcantara, today and was found to be in atrial fibrillation, no history of the same. ER Course: Heparin gtt Prior Cardiology records: [facility] 06/10/18 - Small PFO, no ASD. RV cavity is mildly dilated with normal systolic function. Qualitative LVEF is 55-59% (normal). Moderate secondary MR is present. Moderate to severe TR is present. Mild Aortic valve regurgitation is present. Cardiac Cath 05/2018: Coronary arteries have diffuse minor irregularities with non-obstructive CAD. Previously placed stent in the proximal LAD has no in- stent restenosis. Moderate postcapillary pulmonary hypertension. Step up of oxygen saturation between SVC and RV of 10%. Mean gradient across aortic valve is 16 mmHg indicating no significant stenosis. LVEDP 18mmHg which is mildly elevated Echo 02/05/17: severe calcific aortic stenosis. Moderate LVH, EF > 70%. Normal RV function. Left and right atriums severely dilated. Mild MR, mild to moderate TR Allergies Allergy/AdvReac Type Severity Reaction Status Date / Time doxycycline AdvReac nauseated Verified 04/21/19 12:38 Home Medications Home Medications Medication Instructions Recorded Confirmed Type docusate sodium 100 mg capsule 100 mg PO DAILY cap 11/22/18 04/21/19 History nitroglycerin 0.4 mg sublingual 0.4 mg SL UD PRN tab 11/22/18 04/21/19 History tablet aspirin 81 mg tablet,delayed 81 mg PO DAILY 12/17/18 04/21/19 History release cholecalciferol (vitamin D3) 1,000 1,000 unit PO DAILY 12/17/18 04/21/19 History unit capsule furosemide 20 mg tablet 20 mg PO DAILY 12/17/18 04/21/19 History multivitamin tablet 1 tab PO DAILY 12/17/18 04/21/19 History potassium chloride ER 10 mEq 10 meq PO DAILY 12/17/18 04/21/19 History tablet,extended release ranitidine 150 mg tablet 150 mg PO DAILY PRN 12/17/18 04/21/19 History metoprolol tartrate 50 mg tablet 50 mg PO BID #180 tab 03/27/19 04/21/19 Rx simvastatin 40 mg tablet 40 mg PO HS #90 tab 03/27/19 04/21/19 Rx oxycodone 5 mg tablet 5 - 10 mg PO Q8H PRN #90 tab 03/31/19 04/21/19 Rx oxycodone ER 30 mg tablet,crush 30 mg PO Q12H #50 tab 03/31/19 04/21/19 Rx resistant,extended release 12 hr levothyroxine 112 mcg PO DAILY 04/21/19 04/21/19 History Past Med/Surg History Medical History Hx of myocardial infarction (Resolved) CAD (coronary artery disease) NSTEMI, s/p proximal LAD stent in 2010 Dyslipidemia Hypertension Hypothyroid Severe aortic stenosis Compression fracture of L1 lumbar vertebra (Resolved) Pseudogout of right wrist (Resolved) Surgical History History of cataract surgery History of cataract surgery (Resolved) Family History Other Cancer Heart disease Social History Feels Safe at Home: Yes Smoking Status: Never smoker Hx Alcohol Use: No Hx Substance Use: No Review of Systems Review of Systems: All systems reviewed & are unremarkable except as noted in HPI & below +SCHNEIDER +SOB +Exertional chest discomfort +Nausea +weight loss +Constipation Physical Exam Physical Exam: General: patient resting comfortably, NAD, non-toxic in appearance, AA&O x 4 Skin: warm, dry, intact, no rashes or lesions HEENT: NC/AT, PERRL, EOMI, anicteric sclera, conjunctiva without injection, external ear normal to inspection and nontender, nares patent, moist mucus membranes, dentition intact, no oropharyngeal lesions, neck supple, trachea midline, no LAD, no thyromegaly, no JVD Heart: +S1/S2, irregularly irregular at 86bpm, 3/6 ARMINDA at 2nd right ICS with radiation to carotids, 3/6 ARMINDA at apex to axilla, no rubs/gallops Lungs: equal air entry bilaterally, mildly diminished in bases bilaterally, no rales/rhonchi/wheezes Abd: +BS, soft, NT/ND, no masses/organomegaly/ascites Ext: warm, 2+ pulses in UE/LE bilaterally, no clubbing/cyanosis. 3+ pitting edema of bilateral LE, L > R Neuro: nonfocal, patient AA&O x 4, speech intact, no facial droop, moving all extremities on command with equal strength 5/5 Results & Data Vital Signs (Past 12 Hours) Vital Signs Temp Pulse Resp BP Pulse Ox 04/21/19 11:41 36.7 C 86 20 131/84 97 Laboratory Results Lab Results 04/21/19 04/21/19 04/21/19 Range/Units 12:00 12:00 12:00 WBC 6.68 (4.8-10.8) K/uL RBC 4.31 (4.2-5.4) M/uL Hgb 12.3 (12.0-16.0) g/dL Hct 37.9 (37-47) % MCV 87.9 (80-100) fL MCH 28.5 (25-34) pg MCHC 32.5 (32-36) g/dL RDW Std Deviation 50.7 H (36.4-46.3) fL RDW Coeff of Setve 15.9 H (11.5-14.5) % Plt Count 175 (130-400) K/uL MPV 9.9 (7.4-10.4) fL Immature Gran % (Auto) 0.3 % Neut % (Auto) 66.8 % Lymph % (Auto) 23.5 % [place] % (Auto) 8.7 % Eos % (Auto) 0.4 % Baso % (Auto) 0.3 % Immature Gran # (Auto) 0.02 (0.00-0.02) K/uL Neut # (Auto) 4.46 (1.4-6.5) K/uL Lymph # (Auto) 1.57 (1.2-3.4) K/uL [place] # (Auto) 0.58 (0.11-0.59) K/uL Eos # (Auto) 0.03 (0-0.5) K/uL Baso # (Auto) 0.02 (0-0.2) K/uL PT 12.1 H (9.0-12.0) Seconds INR 1.2 H (0.9-1.1) APTT 26.8 (21.0-31.0) Seconds PTT Ratio 1.0 Sodium 140 (136-145) mmol/L Potassium 3.6 (3.5-5.1) mmol/L Chloride 105 (98-107) mmol/L Carbon Dioxide 26 (21-32) mmol/L Anion Gap 9.0 (3-11) BUN 15 (7-18) mg/dl Creatinine 0.90 (0.6-1.2) mg/dl Est Cr Clr Drug Dosing 38.5 ml/min Est GFR ( Amer) 68.1 Est GFR (Non-Af Amer) 58.7 BUN/Creatinine Ratio 16.5 (10-20) Glucose 97 (70-99) mg/dl Calcium 9.1 (8.5-10.1) mg/dl Magnesium 1.8 (1.8-2.4) mg/dl Total Bilirubin 1.1 H (0.2-1) mg/dl AST 34 (15-37) U/L ALT 23 (12-78) U/L Alkaline Phosphatase 105 (45-117) U/L Troponin I 0.397 H* (0-0.045) ng/ml Total Protein 7.6 (6.4-8.2) gm/dl Albumin 3.6 (3.4-5.0) gm/dl Globulin 4.0 (2.5-4.0) gm/dl Albumin/Globulin Ratio 0.9 (0.9-2) Diagnostic Findings US venous doppler LE LT CLINICAL HISTORY: 83 years-old Female presenting with Dyspnea. TECHNIQUE: Real-time grayscale and color and spectral Doppler ultrasound imaging of the veins of the left lower extremity was performed. Compression and augmentation were also utilized. COMPARISON: None. FINDINGS: LEFT: Common femoral vein: Patent. Greater saphenous vein (superficial): Patent. Deep femoral vein: Patent. Femoral vein: Patent. Popliteal vein: Patent. Calf veins: Patent. Other: Fluid collection in the anterior knee superficial to the patella measuring 5.0 x 1.3 cm. IMPRESSION: 1. No evidence of deep venous thrombosis. 2. Superficial fluid collection in the anterior knee may represent hematoma. This does not appear to be deep to the quadriceps muscle complex to suggest a distended suprapatellar recess in the setting of a joint effusion. Electronically signed by: Rex Barnett M.D. 04/21/2019 1:16 PM Dictated: 04/21/191 Transcribed: 04/21/191310 XR chest 1V not portable HISTORY: Dyspnea COMPARISON: Chest 01/31/2018. FINDINGS: The cardiac silhouette is enlarged. There are trace bilateral pleural effusions. No focal lung consolidations to suggest pneumonia. Slight prominence of the perihilar interstitial and vascular markings. This could represent mild congestive change without overt pulmonary edema. IMPRESSION: 1. Cardiomegaly and trace bilateral pleural effusions. 2. Mild central pulmonary vascular congestion without overt edema. Electronically signed by: Jevon Kenny M.D. 04/21/2019 1:21 PM Dictated: 04/21/191318 Transcribed: 04/21/191318 ECG Additional Comments: AF at 82bpm, low voltage, normal axis, QRS=78, YZx=934, T wave flattening in lateral leads Code Status & VTE Plan Code Status DNR/DNI VTE Prophylaxis Plan VTE Prophylaxis will be ordered: Yes PG Care Time/CCT Total # of Minutes Spent Total Time Spent with Patient: Total time spent is greater than 50% in coordination of care (as documented) at patient's floor/unit and/or counseling p atient: (1) Atrial fibrillation Atrial fibrillation type: unspecified Qualified Code(s): I48.91 - Unspecified atrial fibrillation (2) Coronary artery disease Coronary Disease-Associated Artery/Lesion type: [place] artery [place] vs. transplanted heart: [place] heart Associated angina: with stable angina Qualified Code(s): I25.118 - Atherosclerotic heart disease of [place] coronary artery with other forms of angina pectoris (3) Hyperlipidemia Hyperlipidemia type: unspecified Qualified Code(s): E78.5 - Hyperlipidemia, unspecified (4) Hypothyroidism Hypothyroidism type: unspecified Qualified Code(s): E03.9 - Hypothyroidism, unspecified (5) Knee pain Chronicity: acute Laterality: left Qualified Code(s): M25.562 - Pain in left knee
[2019-04-21] MEDS ORDERED: ACETAMINOPHEN 325 MG TAB PO PRN (16:31)
[2019-04-21] MEDS ORDERED: OXYCODONE HCL IR 5 MG TAB (IMMEDIATE RELEASE) PO PRN (16:31)
[2019-04-21] MEDS ORDERED: METOPROLOL TARTRATE 1 MG/ML VIAL IV PRN (16:31)
[2019-04-21] MEDS ORDERED: FUROSEMIDE 20 MG TAB PO ONE (17:00)
[2019-04-21] MEDS ORDERED: MAGNESIUM SULFATE / D5W 1 GM/100 ML BAG IV ONE (17:00)
[2019-04-21 18:43] LABS: Partial Thromboplastin Ratio 1.9
[2019-04-21 18:44] LABS: Partial Thromboplastin Time 50.9 Seconds (21.0-31.0)
[2019-04-21 18:52] LABS: Phosphorus 2.4 mg/dl (2.5-4.9); Thyroid Stimulating Hormone 2.66 uIu/ml (0.300-4.500)
--- NOTE | 2019-04-21 20:32 | Emergency Department Note ---
Entered by Deann Torres acting as a scribe for Johnathon Castaneda MD History of Present Illness General Chief complaint: Cardiac Assessment Stated complaint: AFIB, EDEMA, SOB, KNEE PAIN Time Seen by Provider: 04/21/19 12:02 Source: patient and family (daughter ) History of Present Illness Onset (ago): hour(s) (just prior to arrival) Location: chest Pain Consistency: + other (episode ) Maximum Pain Intensity: 0 Quality: + other (atrial fibrillation) Associated symptoms: + shortness of breath (persistent over two weeks with exertion and talking) and + other (positive leg swelling; positive pain in legs with walking ); no cough and no fever/chills The patient is a 83 year old white female w/ PMHx HLD, aortic stenosis, CAD status post stents who presents to the ED w/ CC of an episode of atrial fibrillation beginning just prior to arrival. The patient states that she was seen in the [facility] this morning for persistent shortness of breath that began about two weeks ago, left leg swelling that began last week, and right leg swelling that began yesterday. She states that at this visit an ECG was performed and showed atrial fibrillation. The patient states that she does n ot remember ever being in atrial fibrillation previously. Per the patient's daughter at bedside, the patient becomes short of breath with exertion and talking. The patient denies cough, fever, and chills. She reports some pain in her legs with walking. The patient denies any recent injuries or awkward movements. Home Medications Home Medications Medication Instructions Recorded Confirmed Type docusate sodium 100 mg capsule 100 mg PO DAILY cap 11/22/18 04/21/19 History nitroglycerin 0.4 mg sublingual 0.4 mg SL UD PRN tab 11/22/18 04/21/19 History tablet aspirin 81 mg tablet,delayed 81 mg PO DAILY 12/17/18 04/21/19 History release cholecalciferol (vitamin D3) 1,000 1,000 unit PO DAILY 12/17/18 04/21/19 History unit capsule furosemide 20 mg tablet 20 mg PO DAILY 12/17/18 04/21/19 History multivitamin tablet 1 tab PO DAILY 12/17/18 04/21/19 History potassium chloride ER 10 mEq 10 meq PO DAILY 12/17/18 04/21/19 History tablet,extended release ranitidine 150 mg tablet 150 mg PO DAILY PRN 12/17/18 04/21/19 History metoprolol tartrate 50 mg tablet 50 mg PO BID #180 tab 03/27/19 04/21/19 Rx simvastatin 40 mg tablet 40 mg PO HS #90 tab 03/27/19 04/21/19 Rx oxycodone 5 mg tablet 5 - 10 mg PO Q8H PRN #90 tab 03/31/19 04/21/19 Rx oxycodone ER 30 mg tablet,crush 30 mg PO Q12H #50 tab 03/31/19 04/21/19 Rx resistant,extended release 12 hr levothyroxine 112 mcg PO DAILY 04/21/19 04/21/19 History Allergies Allergy/AdvReac Type Severity Reaction Status Date / Time doxycycline AdvReac nauseated Verified 04/21/19 12:38 Past Med/Surg History Medical History Hx of myocardial infarction (Resolved) CAD (coronary artery disease) NSTEMI, s/p proximal LAD stent in 2010 Dyslipidemia Hypertension Hypothyroid Severe aortic stenosis Compression fracture of L1 lumbar vertebra (Resolved) Pseudogout of right wrist (Resolved) Surgical History History of cataract surgery History of cataract surgery (Resolved) Family History Other Cancer Heart disease Social History Preferred Language: Tunisian Beliefs That Will Affect Care: None Current Living Situation: Alone Feels Safe at Home: Yes Smoking Status: Never smoker Hx Alcohol Use: No Hx Substance Use: No Review of Systems See HPI for pertinent positives & negatives. and A total of 10 systems reviewed and were otherwise negative Physical Exam Vital Signs Vital Signs - 24 hr 04/21/19 11:41 04/21/19 12:00 04/21/19 12:20 Temperature 36.7 C Temperature Source Oral Sepsis Recent Fever Within 48 Hours No Sepsis Action Taken by Nursing No Action Required Pulse Rate 86 85 Pulse Rate from SpO2 Sensor Respiratory Rate 20 20 Respiratory Effort / Characteristics Non-Labored Respiratory Depth Normal Blood Pressure 131/84 Blood Pressure Mean 99 Pulse Oximetry 97 Oxygen Delivery Method Room Air Room Air 04/21/19 12:30 04/21/19 14:20 Temperature Temperature Source Sepsis Recent Fever Within 48 Hours Sepsis Action Taken by Nursing Pulse Rate 78 Pulse Rate from SpO2 Sensor 81 Respiratory Rate 15 Respiratory Effort / Characteristics Respiratory Depth Blood Pressure 132/81 Blood Pressure Mean 98 Pulse Oximetry 96 Oxygen Delivery Method Room Air GENERAL: Well appearing, well nourished, NAD, non-toxic. EYE EXAM: Normal conjunctiva. PERRL, no anisocoria and EOM's grossly intact w/o pain. OROPHARYNX: Moist mucus membranes. Grossly normal dentition. NECK: Supple, no nuchal rigidity, no adenopathy, non-tender. no signs of meningismus. LUNGS: Clear to auscultation. Normal chest wall mechanics. HEART: Irregularly irregular rhythm, normal rate. no MRG. ABDOMEN: Abdomen soft, non-tender, normo-active bowel sounds, no masses, no rebound or guarding. BACK: No CVA TTP. SKIN: No rashes and no bruising. UPPER EXTREMITIES: Upper extremities are grossly normal. LOWER EXTREMITIES: Left greater than right lower extremity edema. No redness, no warmth. Negative Homans sign. No calf pain. NEURO EXAM: A&O x3, cranial nerves II-XII grossly intact, normal speech, moves all 4 extremities on command w/o issue. Course 1212: Past medical records reviewed. The patient was evaluated in room C4. A complete history and physical exam was performed. 1230: The patient has a CHADS 2 VASC score of 4. 1321: [facility] for further evaluation. Consultations Consultation #1: [facility] for further evaluation. Time: 13:21 Administered Medications Heparin Sodium/Dextrose (Heparin Sodium/Dextrose) 25,000 units in 500 mls @ 20 mls/hr IV .Q24H NADEGE; Protocol Stop: 05/21/19 13:29 Last Admin: 04/21/19 14:20 Dose: 1,000 units/hr, 20 mls/hr Documented by: [id number] Cosigned by: [id number] Discontinued Medications Furosemide (Lasix) 40 mg PO 1700 ONE Stop: 04/21/19 17:01 Last Admin: 04/21/19 17:07 Dose: 40 mg Documented by: [id number] Heparin Sodium/Dextrose () 1 ea IV ONE ONE; Protocol Stop: 04/21/19 13:17 Last Admin: 04/21/19 20:01 Dose: 1 ea Documented by: [id number] Magnesium Sulfate/Dextrose (Magnesium Sulfate / D5w) 1 gm in 100 mls @ 100 mls/hr IV 1700 ONE Stop: 04/21/19 17:59 Last Infusion: 04/21/19 18:10 Dose: 0 mls/hr Documented by: [id number] Admin: 04/21/19 17:07 Dose: 100 mls/hr Documented by: [id number] Medical Decision Making Medical Records Attestation: I reviewed the patient's medical records. Home Medications Current Medication List: was personally reviewed by sc Laboratory Data Attestation: I reviewed the patient's lab results. Result diagrams: 04/21/19 12:00 04/21/19 12:00 Lab Results 04/21/19 04/21/19 04/21/19 Range/Units 12:00 12:00 12:00 WBC 6.68 (4.8-10.8) K/uL RBC 4.31 (4.2-5.4) M/uL Hgb 12.3 (12.0-16.0) g/dL Hct 37.9 (37-47) % MCV 87.9 (80-100) fL MCH 28.5 (25-34) pg MCHC 32.5 (32-36) g/dL RDW Std Deviation 50.7 H (36.4-46.3) fL RDW Coeff of Steve 15.9 H (11.5-14.5) % Plt Count 175 (130-400) K/uL MPV 9.9 (7.4-10.4) fL Immature Gran % (Auto) 0.3 % Neut % (Auto) 66.8 % Lymph % (Auto) 23.5 % [place] % (Auto) 8.7 % Eos % (Auto) 0.4 % Baso % (Auto) 0.3 % Immature Gran # (Auto) 0.02 (0.00-0.02) K/uL Neut # (Auto) 4.46 (1.4-6.5) K/uL Lymph # (Auto) 1.57 (1.2-3.4) K/uL [place] # (Auto) 0.58 (0.11-0.59) K/uL Eos # (Auto) 0.03 (0-0.5) K/uL Baso # (Auto) 0.02 (0-0.2) K/uL PT 12.1 H (9.0-12.0) Seconds INR 1.2 H (0.9-1.1) APTT 26.8 (21.0-31.0) Seconds PTT Ratio 1.0 Sodium 140 (136-145) mmol/L Potassium 3.6 (3.5-5.1) mmol/L Chloride 105 (98-107) mmol/L Carbon Dioxide 26 (21-32) mmol/L Anion Gap 9.0 (3-11) BUN 15 (7-18) mg/dl Creatinine 0.90 (0.6-1.2) mg/dl Est Cr Clr Drug Dosing 38.5 ml/min Est GFR ( Amer) 68.1 Est GFR (Non-Af Amer) 58.7 BUN/Creatinine Ratio 16.5 (10-20) Glucose 97 (70-99) mg/dl Calcium 9.1 (8.5-10.1) mg/dl Magnesium 1.8 (1.8-2.4) mg/dl Total Bilirubin 1.1 H (0.2-1) mg/dl AST 34 (15-37) U/L ALT 23 (12-78) U/L Alkaline Phosphatase 105 (45-117) U/L Troponin I 0.397 H* (0-0.045) ng/ml Total Protein 7.6 (6.4-8.2) gm/dl Albumin 3.6 (3.4-5.0) gm/dl Globulin 4.0 (2.5-4.0) gm/dl Albumin/Globulin Ratio 0.9 (0.9-2) Imaging Data Radiologist's Impression: Radiology results as stated below per my review and the radiologist's interpretation: US venous doppler LE LT CLINICAL HISTORY: 83 years-old Female presenting with Dyspnea. TECHNIQUE: Real-time grayscale and color and spectral Doppler ultrasound imaging of the veins of the left lower extremity was performed. Compression and augmentation were also utilized. COMPARISON: None. FINDINGS: LEFT: Common femoral vein: Patent. Greater saphenous vein (superficial): Patent. Deep femoral vein: Patent. Femoral vein: Patent. Popliteal vein: Patent. Calf veins: Patent. Other: Fluid collection in the anterior knee superficial to the patella measuring 5.0 x 1.3 cm. IMPRESSION: 1. No evidence of deep venous thrombosis. 2. Superficial fluid collection in the anterior knee may represent hematoma. This does not appear to be deep to the quadriceps muscle complex to suggest a distended suprapatellar recess in the setting of a joint effusion. Electronically signed by: Rex Barnett M.D. 04/21/2019 1:16 PM XR chest 1V not portable HISTORY: Dyspnea COMPARISON: Chest 01/31/2018. FINDINGS: The cardiac silhouette is enlarged. There are trace bilateral pleural effusions. No focal lung consolidations to suggest pneumonia. Slight prominence of the perihilar interstitial and vascular markings. This could represent mild c ongestive change without overt pulmonary edema. IMPRESSION: 1. Cardiomegaly and trace bilateral pleural effusions. 2. Mild central pulmonary vascular congestion without overt edema. Electronically signed by: Jevon Kenny M.D. 04/21/2019 1:21 PM ECG Data Attestation: I personally reviewed and interpreted this ECG as follows: Indication: SOB/dyspnea Rate (beats per minute): 82 Rhythm: atrial fibrillation Findings: + other (normal QRS duration; normal axis; T wave flattening in lateral leads; no ST segment changes) Blood Pressure Blood Pressure Findings: Elevated blood pressure Blood Pressure Disposition: further management by hospitalist MDM Narrative The patient is a 83 year old white female w/ PMHx HLD, aortic stenosis, CAD status post stents who presents to the ED w/ CC of an episode of atrial fibrillation beginning just prior to arrival. Differential diagnoses includes but is not limited to pneumonia, bronchitis, COPD/Asthma exacerbation, pneumothorax, pulmonary embolism, congestive heart failure, acute coronary syndrome, arrhythmia, and others were considered. Patient was seen and evaluated the bedside. The patient has had approximately 2 weeks of increasing shortness of breath dyspnea on exertion but without orthopnea. Patient does have a known history of CAD status post stents as well as aortic stenosis but was noted to be in A. fib this morning. Patient does have an elevated chads 2 vasc score of 4. EKG does show A. fib here but without evidence of ST changes. There may be some subtle T wave flattening in the lateral leads. Patient denies any active chest pains. Patient did a blood work completed along with a left lower extremity ultrasound given that she was noticing some worsening left lower extremity swelling. No erythema calf pain or warmth noted. Patient did have a positive troponin. No EKG changes in terms of ST segment. Will avoid aspirin given that we will start on heparin due to elevated risk for stroke with new onset of A. fib. I did discuss the findings I did speak with the on-call hospitalist who agreed to further evaluate treat the patient. Patient was admitted to the medicine service. Impression & Plan Atrial fibrillation, Shortness of breath, Elevated troponin Critical Care Time Critical Care Time: Yes Total Critical Care Time: 55 I have personally spent greater than 55 minutes of critical care time in direct management of this patient. This includes bedside care, interpretation of diagnostic studies, and testing, discussion with consultants, patient, and family members, and other require inpatient management activities. This 55 minutes is in excess of all separately billable procedures. Discharge Plan Visit Data *Final* Discharge Date/Time: 04/21/19 16:06 Chief Complaint: Cardiac Assessment Stated Complaint: AFIB, EDEMA, SOB, KNEE PAIN ED Provider: Johnathon Castaneda Discharge Problem: Atrial fibrillation, Shortness of breath, Elevated troponin Patient Disposition: Admitted As Inpatient Discharge Instructions Interventions: ED Discharge Assessment Last Done: 04/21/19 16:06 Discharge Problem: Atrial fibrillation Qualifiers: Atrial fibrillation type: unspecified Qualified Code(s): I48.91 - Unspecified atrial fibrillation The scribe's documentation has been prepared under my direction and personally reviewed by me in its entirety. I confirm that the note above accurately reflects all work, treatment, procedures, and medical decision making performed by me.
[2019-04-21] MEDS: SIMVASTATIN 40 MG TAB PO SCH (20:55)
[2019-04-21] MEDS: METOPROLOL TARTRATE 50 MG TAB PO SCH (20:55)
[2019-04-21] MEDS: OXYCODONE HCL 15 MG TABCR (OXYCONTIN) PO SCH (20:55)
[2019-04-22 03:57] LABS: Basophils # (auto) 0.02 K/uL (0-0.2); Basophils % (auto) 0.4 %; Eosinophils # (auto) 0.08 K/uL (0-0.5); Eosinophils % (auto) 1.5 %; Hematocrit (blood only) 32.6 % (37-47); Hemoglobin 10.6 g/dL (12.0-16.0); Lymphocytes # (auto) 2.12 K/uL (1.2-3.4); Lymphocytes % (auto) 39.7 %; Mean Corpuscular Hemoglobin 28.1 pg (25-34); Mean Corpuscular Hgb Conc 32.5 g/dL (32-36); Mean Corpuscular Volume 86.5 fL (80-100); Mean Platelet Volume 9.6 fL (7.4-10.4); Monocytes # (auto) 0.82 K/uL (0.11-0.59); Monocytes % (auto) 15.4 %; Platelet Count 143 K/uL (130-400); RDW Coefficient of Variation 15.9 % (11.5-14.5); RDW Standard Deviation 50.1 fL (36.4-46.3); Red Blood Count 3.77 M/uL (4.2-5.4); White Blood Count 5.34 K/uL (4.8-10.8)
[2019-04-22 04:12] LABS: BUN Creatinine Ratio 15.9 (10-20); Calcium 8.4 mg/dl (8.5-10.1); Creatinine Clr Calc Pharmacy 41.2 ml/min; Est GFR (Non-African American) 63.8; Potassium 3.3 mmol/L (3.5-5.1)
[2019-04-22 04:18] LABS: Partial Thromboplastin Ratio 3.6
[2019-04-22 04:28] LABS: Partial Thromboplastin Time 97.1 Seconds (21.0-31.0)
[2019-04-22 04:29] LABS: Troponin I 0.356 ng/ml (0-0.045)
[2019-04-22] MEDS: LEVOTHYROXINE SODIUM 112 MCG TABLET PO SCH (05:40)
[2019-04-22] MEDS: METOPROLOL TARTRATE 50 MG TAB PO SCH ×2 (08:17→20:45)
[2019-04-22] MEDS: ASPIRIN 81 MG ECTAB PO SCH (08:17)
[2019-04-22] MEDS: DOCUSATE SODIUM 100 MG CAP PO SCH (08:18)
[2019-04-22] MEDS: OXYCODONE HCL 15 MG TABCR (OXYCONTIN) PO SCH ×2 (08:20→20:47)
[2019-04-22] MEDS ORDERED: POTASSIUM CHLORIDE 10 MEQ TABCR PO SCH (09:00)
[2019-04-22] MEDS: MAGNESIUM OXIDE 400 MG TAB PO SCH (09:01)
[2019-04-22] MEDS: POTASSIUM CHLORIDE 10 MEQ TABCR PO SCH ×3 (09:02→20:44)
--- NOTE | 2019-04-22 11:55 | Cardiology Consultation ---
Date of Consultation April 22, 2019 Assessment & Plan (1) Atrial fibrillation: Patient found on incidental examination at time of knee discomfort to have newly observed atrial fibrillation with controlled ventricular response rate. I discussed atrial fibrillation in detail with the patient and daughter. Rates are adequately controlled on current dosing of metoprolol. Patient does have an elevated chads vasc 2 score of 5-6 and warrants chronic anticoagulation. IV heparin already begun Echocardiogram demonstrates marked biatrial enlargement and moderate to severe mitral and tricuspid insufficiency making return to sinus rhythm unlikely Presentation is notable for symptoms consistent with mild to moderate diastolic heart failure secondary to valvular disease and possible mild decompensation secondary to newly observed atrial fibrillation. Recommendations: Continue metoprolol current dosing 50 mg twice per day for rate control. Initiate anticoagulation orally, anemia will need to be followed closely Increase diuretics. 20 mg IV furosemide will be given now. Spironolactone 25 mill grams p.o. daily added to regimen Elevated pulmonary pressures are likely due to valvular disease but nocturnal oximetry will be ordered as part of evaluation (2) Shortness of breath: (3) Diastolic heart failure due to valvular disease: Moderate to severe mitral insufficiency and tricuspid insufficiency is present medical therapies will need to be optimized. History of Present Illness Reason for Consultation: New onset atrial fibrillation, diastolic heart failure Requesting Physician: Dr Ramos Attending Physician: Talha Boateng History of Present Illness Patient is an 83-year-old female with past history of multiple cardiac and noncardiac issues as listed below 1. Atherosclerotic coronary disease status post LAD coronary intervention stent 2010 2. Mixed valvular disease past concerns regarding aortic stenosis. 3. Cardiac catheterization, echo and transesophageal echocardiogram May 2018 demonstrating no obstructive coronary disease, no aortic stenosis, preserved LV systolic function at least moderate mitral tricuspid insufficiency 4. Pulmonary hypertension 5. Small patent foramen ovale 6. Biatrial enlargement 7. Dyslipidemia 8. Hypothyroidism 9. Chronic back pain secondary to spinal stenosis Patient presents this admission noting having sought evaluation by primary care due to complaints of knee pain and discomfort. While there she was noted to have increasing lower extremity edema and did admit to symptoms of exertional dyspnea and shortness of breath. No overt orthopnea. No tachypalpitations syncope or near syncope. EKG however reflected newly observed atrial fibrillation with controlled ventricular response rate she was referred for inpatient management and begun on IV anticoagulation with heparin. Single dose of IV furosemide given last evening Patient denies prior history of TIA or stroke. Notes no history of diabetes mellitus melena hematochezia. Appetite is poor with food is "not tasting good". Has lost weight notes no unexplained fevers or infections. Notes no rash. Predominant complaint is pain and discomfort in her left knee. Initial testing revealed no acute EKG changes troponins are elevated but flat with preserved LV systolic function BNP is elevated. Anemia is noted on admission laboratory testing Echocardiogram today demonstrates preserved LV systolic function. There is no aortic stenosis there is marked biatrial enlargement and moderate to severe mitral and tricuspid insufficiency with moderate elevation in pulmonary pressures Allergies Allergy/AdvReac Type Severity Reaction Status Date / Time doxycycline AdvReac nauseated Verified 04/21/19 12:38 Home Medications Home Medications Medication Instructions Recorded Confirmed Type docusate sodium 100 mg capsule 100 mg PO DAILY cap 11/22/18 04/21/19 History nitroglycerin 0.4 mg sublingual 0.4 mg SL UD PRN tab 11/22/18 04/21/19 History tablet aspirin 81 mg tablet,delayed 81 mg PO DAILY 12/17/18 04/21/19 History release cholecalciferol (vitamin D3) 1,000 1,000 unit PO DAILY 12/17/18 04/21/19 History unit capsule furosemide 20 mg tablet 20 mg PO DAILY 12/17/18 04/21/19 History multivitamin tablet 1 tab PO DAILY 12/17/18 04/21/19 History potassium chloride ER 10 mEq 10 meq PO DAILY 12/17/18 04/21/19 History tablet,extended release ranitidine 150 mg tablet 150 mg PO DAILY PRN 12/17/18 04/21/19 History metoprolol tartrate 50 mg tablet 50 mg PO BID #180 tab 03/27/19 04/21/19 Rx simvastatin 40 mg tablet 40 mg PO HS #90 tab 03/27/19 04/21/19 Rx oxycodone 5 mg tablet 5 - 10 mg PO Q8H PRN #90 tab 03/31/19 04/21/19 Rx oxycodone ER 30 mg tablet,crush 30 mg PO Q12H #50 tab 03/31/19 04/21/19 Rx resistant,extended release 12 hr levothyroxine 112 mcg PO DAILY 04/21/19 04/21/19 History Patient History Medical History Hx of myocardial infarction (Resolved) CAD (coronary artery disease) NSTEMI, s/p proximal LAD stent in 2011 Dyslipidemia Hypertension Hypothyroid Severe aortic stenosis Compression fracture of L1 lumbar vertebra (Resolved) Pseudogout of right wrist (Resolved) Surgical History History of cataract surgery History of cataract surgery (Resolved) Family History Other Cancer Heart disease Social History Preferred Language: Mongolian Communication Ability: Effective Beliefs That Will Affect Care: None Current Living Situation: Alone Feels Safe at Home: Yes Smoking Status: Never smoker Hx Alcohol Use: No Hx Substance Use: No Review of Systems Review of Systems: All systems reviewed & are unremarkable except as noted in HPI & below Physical Exam Constitutional: WD/WN, vitals as above Eyes: PERRL, conjunctivae normal, anicteric sclerae ENMT: external ear and nose normal, oropharynx normal Neck: trachea midline, no thyromegaly Respiratory: normal respiratory effort, lungs clear to auscultation Cardiovascular: Rate/Rhythm: + irregularly irregular Heart Sounds: normal S1, normal S2 and + murmur (Grade 1/6 at apex); no gallop Palpation: normal PMI Vessels: + JVD (Mild jugular venous distention at 30 degrees), normal carotid upstroke and radial pulses present; no carotid bruit Extremities: + edema (1+ bilaterally left greater than right) Gastrointestinal (Abdomen): normal bowel sounds, soft, nontender, no hepatosplenomegaly Musculoskeletal: no cyanosis or clubbing, extremities motor strength 5/5 Skin: no rashes, warm and dry Neurologic: PERRL, EOMI, accommodation nl, no face palsy, no dysarthria Psychiatric: A+Ox3, euthymic affect Results & Data Vital Signs (Past 12 Hours) Vital Signs Temp Pulse Pulse Resp BP BP Pulse Ox 04/22/19 11:11 36.9 C 71 18 116/72 95 04/22/19 08:00 37.2 C 81 20 124/75 98 04/22/19 02:32 36.6 C 66 18 94/57 L 96 04/22/19 00:00 59 L Laboratory Results Laboratory Results - last 24 hr 04/21/19 04/21/19 04/21/19 18:10 18:10 20:01 WBC RBC Hgb Hct MCV MCH MCHC RDW Std Deviation RDW Coeff of Steve Plt Count MPV Immature Gran % (Auto) Neut % (Auto) Lymph % (Auto) [place] % (Auto) Eos % (Auto) Baso % (Auto) Immature Gran # (Auto) Neut # (Auto) Lymph # (Auto) [place] # (Auto) Eos # (Auto) Baso # (Auto) APTT 50.9 H* PTT Ratio 1.9 Sodium Potassium Chloride Carbon Dioxide Anion Gap BUN Creatinine Est Cr Clr Drug Dosing Est GFR ( Amer) Est GFR (Non-Af Amer) BUN/Creatinine Ratio Glucose Calcium Phosphorus 2.4 L Troponin I 0.361 H* NT-Pro-B Natriuret Pep 3483 H TSH 2.660 04/22/19 04/22/19 04/22/19 03:38 03:38 03:38 WBC 5.34 RBC 3.77 L Hgb 10.6 L Hct 32.6 L MCV 86.5 MCH 28.1 MCHC 32.5 RDW Std Deviation 50.1 H RDW Coeff of Steve 15.9 H Plt Count 143 MPV 9.6 Immature Gran % (Auto) 0.0 Neut % (Auto) 43.0 Lymph % (Auto) 39.7 [place] % (Auto) 15.4 Eos % (Auto) 1.5 Baso % (Auto) 0.4 Immature Gran # (Auto) 0.00 Neut # (Auto) 2.30 Lymph # (Auto) 2.12 [place] # (Auto) 0.82 H Eos # (Auto) 0.08 Baso # (Auto) 0.02 APTT 97.1 H* PTT Ratio 3.6 Sodium 144 Potassium 3.3 L Chloride 108 H Carbon Dioxide 29 Anion Gap 7.0 BUN 13 Creatinine 0.84 Est Cr Clr Drug Dosing 41.2 Est GFR ( Amer) 74.0 Est GFR (Non-Af Amer) 63.8 BUN/Creatinine Ratio 15.9 Glucose 84 Calcium 8.4 L Phosphorus Troponin I 0.356 H* NT-Pro-B Natriuret Pep TSH 04/22/19 11:31 WBC RBC Hgb Hct MCV MCH MCHC RDW Std Deviation RDW Coeff of Steve Plt Count MPV Immature Gran % (Auto) Neut % (Auto) Lymph % (Auto) [place] % (Auto) Eos % (Auto) Baso % (Auto) Immature Gran # (Auto) Neut # (Auto) Lymph # (Auto) [place] # (Auto) Eos # (Auto) Baso # (Auto) APTT 71.2 H* PTT Ratio 2.6 Sodium Potassium Chloride Carbon Dioxide Anion Gap BUN Creatinine Est Cr Clr Drug Dosing Est GFR ( Amer) Est GFR (Non-Af Amer) BUN/Creatinine Ratio Glucose Calcium Phosphorus Troponin I NT-Pro-B Natriuret Pep TSH (1) Atrial fibrillation Atrial fibrillation type: unspecified Qualified Code(s): I48.91 - Unspecified atrial fibrillation
[2019-04-22 12:07] LABS: Partial Thromboplastin Ratio 2.6
[2019-04-22 12:16] LABS: Partial Thromboplastin Time 71.2 Seconds (21.0-31.0)
[2019-04-22] MEDS ORDERED: FUROSEMIDE 20 MG in SYRINGE 0 ML IV ONE (12:30)
[2019-04-22] MEDS: SPIRONOLACTONE 25 MG TAB PO SCH (13:45)
--- NOTE | 2019-04-22 15:27 | XRay Report ---
LEFT KNEE 2 VIEWS HISTORY: Left knee pain. ? effusion COMPARISON: Leg length study 08/15/2016. FINDINGS: There is no fracture or dislocation. Small knee effusion. The bones are osteopenic. Moderat e to severe tricompartmental osteoarthritis is again noted with associated chondrocalcinosis. This is most pronounced at the medial compartment. The bones are osteopenic. No radiopaque foreign bodies. IMPRESSION: 1. Small left knee effusion. 2. No fractures. 3. Tricompartmental osteoarthritis with chondrocalcinosis. Electronically signed by: Jevon Kenny M.D. 04/22/2019 3:26 PM
[2019-04-22] MEDS: HEPARIN SODIUM/DEXTROSE 25,000 UNITS/500 ML BAG IV SCH (16:52)
--- NOTE | 2019-04-22 17:20 | Consultation Report ---
DATE OF CONSULTATION: 04/22/2019 HISTORY OF PRESENT ILLNESS: The patient is an 83-year-old white female who was admitted to the hospital with complaints of left leg pain, knee pain and swelling. She relates no traumatic history to her left leg, her right leg is unaffected. She denies being on any type of blood thinners. MEDICAL HISTORY: Also consistent of atrial fibrillation with initiation of anticoagulation. PHYSICAL EXAMINATION: Her knee examination reveals there to be evidence of a small to moderate effusion of the left knee and no prepatellar bursitis is observed. There is some generalized swelling into her left lower leg and ankle. No tenderness specifically along her posterior calf. X-rays revealed there to be evidence of chondrocalcinosis and tricompartmental degenerative joint disease. No fractures noted. Venous Doppler reveals no evidence of deep venous thrombosis. On exam small to moderate effusion, left knee. No fracture noted. No history of DVT. We will discuss possible MRI to further evaluate knee. At this point, I do not see anything surgical. We will follow with you.
[2019-04-22 19:09] LABS: Partial Thromboplastin Ratio 2.1
[2019-04-22 19:12] LABS: Partial Thromboplastin Time 56.7 Seconds (21.0-31.0)
--- NOTE | 2019-04-22 20:30 | Hospitalist Progress Note ---
Date of Service April 22, 2019 Assessment & Plan (1) Atrial fibrillation: Appreciate cardiology consultation and recs. Rates controlled with metoprolol. Remains on heparin; will investigate cost of eliquis and if reasonable will stop heparin & start eliquis 2.5mg BID for anticoagulation. No symptoms from the a.fib. Suspect a.fib could have led to the decompensated diastolic CHF. (2) Diastolic heart failure due to valvular disease: Volume status improved. BUN & CR stable in midst of diuresis. Symptoms improved. EF preserved on echo. Suspect a.fib, valvular disease, etc all contributed to decompensated CHF. Was taking lasix 20mg daily at home. Also now on aldactone. Defer diuretic management to cardiology. Cont I's and O's, daily weights, etc. (3) Osteoarthritis of left knee: left knee mod-severe OA. CPPD (pseudogout) findings also present. 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 Start voltaren gel 4gm QID to L knee for pain control. Appreciate ortho consultation. (4) Elevated troponin: myocardial demand ischemia in setting of a.fib, decompensated CHF, etc no ACS (5) Hypothyroidism: TSH wnl cont synthroid (6) Hyperlipidemia: cont statin agent (7) Coronary artery disease: no ischemic symptoms at this time wall motion on echo wnl cont asa, BB, statin (8) Hypertension: controlled (9) Chronic kidney disease, stage 3a: creatinine stable/at baseline BMP am (10) DVT prophylaxis: heparin infusion son extensively updated at bedside 04/22 PT, OT evals Subjective patient overall feeling well. main complaint is left knee pain. no dyspnea today. had had SCHNEIDER for about 1 month - this is definitely improved today. no orthopnea. no cough. no chest pain or palpitations. tele with ongoing a.fib but rates controlled. Review of Systems Constitutional: no fever and no chills Respiratory: no dyspnea and no dyspnea on exertion Cardiovascular: + edema; no chest pain Gastrointestinal: no abdominal pain Physical Exam Constitutional: average body habitus; no acute distress and no altered mental status ENMT: external ear and nose normal, oropharynx normal Respiratory: no respiratory distress Auscultation: + diminished lung sounds (bases); no crackles and no wheezes Cardiovascular: Rate/Rhythm: regular rate and + irregularly irregular Heart Sounds: normal S1, normal S2 and + murmur (3/6 holosystolic - loudest LLSB (also heard RUSB)) Vessels: + JVD, posterior tibial pulses present and dorsalis pedis pulses present Extremities: + edema (trace left leg, none on right) Gastrointestinal (Abdomen): normal bowel sounds, soft, nontender, no hepatosplenomegaly Musculoskeletal: left knee with mild effusion; not tender or warm; OA bony changes overlying the joint Psychiatric: A+Ox3, euthymic affect Results & Data Vital Signs (Past 12 Hours) Vital Signs Temp Pulse Resp BP BP Pulse Ox 04/22/19 19:25 36.7 C 76 18 117/69 95 04/22/19 15:11 36.8 C 71 16 110/71 98 04/22/19 11:11 36.9 C 71 18 116/72 95 Laboratory Results Laboratory Results - last 24 hr 04/21/19 04/22/19 04/22/19 20:01 03:38 03:38 WBC 5.34 RBC 3.77 L Hgb 10.6 L Hct 32.6 L MCV 86.5 MCH 28.1 MCHC 32.5 RDW Std Deviation 50.1 H RDW Coeff of Steve 15.9 H Plt Count 143 MPV 9.6 Immature Gran % (Auto) 0.0 Neut % (Auto) 43.0 Lymph % (Auto) 39.7 [place] % (Auto) 15.4 Eos % (Auto) 1.5 Baso % (Auto) 0.4 Immature Gran # (Auto) 0.00 Neut # (Auto) 2.30 Lymph # (Auto) 2.12 [place] # (Auto) 0.82 H Eos # (Auto) 0.08 Baso # (Auto) 0.02 APTT PTT Ratio Sodium 144 Potassium 3.3 L Chloride 108 H Carbon Dioxide 29 Anion Gap 7.0 BUN 13 Creatinine 0.84 Est Cr Clr Drug Dosing 41.2 Est GFR ( Amer) 74.0 Est GFR (Non-Af Amer) 63.8 BUN/Creatinine Ratio 15.9 Glucose 84 Calcium 8.4 L Troponin I 0.361 H* 0.356 H* 04/22/19 04/22/19 04/22/19 03:38 11:31 18:27 WBC RBC Hgb Hct MCV MCH MCHC RDW Std Deviation RDW Coeff of Steve Plt Count MPV Immature Gran % (Auto) Neut % (Auto) Lymph % (Auto) [place] % (Auto) Eos % (Auto) Baso % (Auto) Immature Gran # (Auto) Neut # (Auto) Lymph # (Auto) [place] # (Auto) Eos # (Auto) Baso # (Auto) APTT 97.1 H* 71.2 H* 56.7 H* PTT Ratio 3.6 2.6 2.1 Sodium Potassium Chloride Carbon Dioxide Anion Gap BUN Creatinine Est Cr Clr Drug Dosing Est GFR ( Amer) Est GFR (Non-Af Amer) BUN/Creatinine Ratio Glucose Calcium Troponin I PG Care Time/CCT Total # of Minutes Spent Total Time Spent with Patient: Total time spent is greater than 50% in coordination of care (as documented) at patient's floor/unit and/or counseling patient: (1) Atrial fibrillation Atrial fibrillation type: unspecified Qualified Code(s): I48.91 - Unspecified atrial fibrillation (2) Osteoarthritis of left knee Osteoarthritis type: primary Qualified Code(s): M17.12 - Unilateral primary osteoarthritis, left knee (3) Diastolic heart failure due to valvular disease Heart failure chronicity: acute Qualified Code(s): I50.31 - Acute diastolic (congestive) heart failure; I38 - Endocarditis, valve unspecified (4) Hypothyroidism Hypothyroidism type: unspecified Qualified Code(s): E03.9 - Hypothyroidism, unspecified (5) Hyperlipidemia Hyperlipidemia type: unspecified Qualified Code(s): E78.5 - Hyperlipidemia, unspecified (6) Coronary artery disease Coronary Disease-Associated Artery/Lesion type: [place] artery [place] vs. transplanted heart: ute heart Associated angina: with stable angina Qualified Code(s): I25.118 - Atherosclerotic heart disease of [place] coronary artery with other forms of angina pectoris (7) Hypertension Hypertension type: essential hypertension Qualified Code(s): I10 - Essential (primary) hypertension
[2019-04-22] MEDS: SIMVASTATIN 40 MG TAB PO SCH (20:45)
[2019-04-22] MEDS: DICLOFENAC SOD 1% GEL 100 GM TUBE EXT SCH (20:48)
[2019-04-23] MEDS: LEVOTHYROXINE SODIUM 112 MCG TABLET PO SCH (05:33)
[2019-04-23 05:49] LABS: Partial Thromboplastin Ratio 2.8
[2019-04-23 06:02] LABS: Partial Thromboplastin Time 76.2 Seconds (21.0-31.0)
[2019-04-23 06:19] LABS: BUN Creatinine Ratio 15.7 (10-20); Calcium 8.7 mg/dl (8.5-10.1); Creatinine Clr Calc Pharmacy 40.8 ml/min; Est GFR (African American) 72.9; Est GFR (Non-African American) 62.9
[2019-04-23] MEDS: SPIRONOLACTONE 25 MG TAB PO SCH (08:01)
[2019-04-23] MEDS: OXYCODONE HCL 15 MG TABCR (OXYCONTIN) PO SCH ×2 (08:01→20:01)
[2019-04-23] MEDS: DOCUSATE SODIUM 100 MG CAP PO SCH (08:01)
[2019-04-23] MEDS: METOPROLOL TARTRATE 50 MG TAB PO SCH ×2 (08:01→20:02)
[2019-04-23] MEDS: MAGNESIUM OXIDE 400 MG TAB PO SCH (08:01)
[2019-04-23] MEDS: DICLOFENAC SOD 1% GEL 100 GM TUBE EXT SCH ×4 (08:02→20:01)
[2019-04-23] MEDS: ASPIRIN 81 MG ECTAB PO SCH (08:02)
[2019-04-23] MEDS: POTASSIUM CHLORIDE 10 MEQ TABCR PO SCH (08:02)
--- NOTE | 2019-04-23 09:24 | Cardiology Progress Note ---
Date of Service April 23, 2019 Assessment & Plan (1) Atrial fibrillation: Patient found on incidental examination at time of knee discomfort to have newly observed atrial fibrillation with controlled ventricular response rate. I discussed atrial fibrillation in detail with the patient and daughter. Rates are adequately controlled on current dosing of metoprolol. Patient does have an elevated chads vasc 2 score of 5-6 and warrants chronic anticoagulation. IV heparin already begun Echocardiogram demonstrates marked biatrial enlargement and moderate to severe mitral and tricuspid insufficiency making return to sinus rhythm unlikely Presentation is notable for symptoms consistent with mild to moderate diastolic heart failure secondary to valvular disease and possible mild decompensation secondary to newly observed atrial fibrillation. Recommendations: Continue metoprolol current dosing 50 mg twice per day for rate control. Would recommend changing heparin to Eliquis 2.5 mg twice per day, reduceD dose for age and weight less than 60 kg Increase furosemide to 20 mg alternating with 40 mg/day, continue spironolactone 25 mg/day. Discontinue potassium supplement Follow-up [facility] cardiology 2 to 3 weeks time (2) Shortness of breath: (3) Diastolic heart failure due to valvular disease: Moderate to severe mitral insufficiency and tricuspid insufficiency is present medical therapies will need to be optimized. Subjective Patient seen and examined, chart, medications, telemetry reviewed. Patient without cardiac complaints this morning. Telemetry reveals atrial fibrillation with controlled ventricular response rate no significant bradycardia or tachyarrhythmias. Lower extremity edema improved. Ambulatory in room without dyspnea Physical Exam Constitutional: WD/WN, vitals as above Eyes: PERRL, conjunctivae normal, anicteric sclerae ENMT: external ear and nose normal, oropharynx normal Neck: trachea midline, no thyromegaly Respiratory: normal respiratory effort, lungs clear to auscultation Cardiovascular: Rate/Rhythm: + irregularly irregular Heart Sounds: normal S1, normal S2 and + murmur (Grade 1/6 at apex); no gallop Palpation: normal PMI Vessels: + JVD (Mild jugular venous distention at 30 degrees), normal carotid upstroke and radial pulses present; no carotid bruit Extremities: + edema (1+ bilaterally left greater than right) Gastrointestinal (Abdomen): normal bowel sounds, soft, nontender, no hepatosplenomegaly Musculoskeletal: no cyanosis or clubbing, extremities motor strength 5/5 Skin: no rashes, warm and dry Neurologic: PERRL, EOMI, accommodation nl, no face palsy, no dysarthria Psychiatric: A+Ox3, euthymic affect Results & Data Vital Signs (Past 12 Hours) Vital Signs Temp Pulse Pulse Pulse Resp BP BP 04/23/19 08:00 69 04/23/19 07:06 36.8 C 66 16 118/74 04/23/19 03:34 36.7 C 62 17 126/75 04/23/19 03:22 61 04/22/19 23:56 36.7 C 61 17 115/62 04/22/19 23:00 Pulse Ox Pulse Ox 04/23/19 08:00 04/23/19 07:06 97 04/23/19 03:34 96 04/23/19 03:22 95 04/22/19 23:56 98 04/22/19 23:00 94 Laboratory Results Laboratory Results - last 24 hr 04/22/19 04/22/19 04/23/19 11:31 18:27 05:18 APTT 71.2 H* 56.7 H* 76.2 H* PTT Ratio 2.6 2.1 2.8 Sodium Potassium Chloride Carbon Dioxide Anion Gap BUN Creatinine Est Cr Clr Drug Dosing Est GFR ( Amer) Est GFR (Non-Af Amer) BUN/Creatinine Ratio Glucose Calcium 04/23/19 05:18 APTT PTT Ratio Sodium 142 Potassium 4.0 D Chloride 108 H Carbon Dioxide 31 Anion Gap 3.0 BUN 13 Creatinine 0.85 Est Cr Clr Drug Dosing 40.8 Est GFR ( Amer) 72.9 Est GFR (Non-Af Amer) 62.9 BUN/Creatinine Ratio 15.7 Glucose 90 Calcium 8.7 (1) Atrial fibrillation Atrial fibrillation type: unspecified Qualified Code(s): I48.91 - Unspecified atrial fibrillation
[2019-04-23] MEDS: APIXABAN 2.5 MG TAB PO SCH ×2 (10:11→20:02)
[2019-04-23 10:15] LABS: Basophils # (auto) 0.03 K/uL (0-0.2); Basophils % (auto) 0.6 %; Eosinophils # (auto) 0.07 K/uL (0-0.5); Eosinophils % (auto) 1.4 %; Hematocrit (blood only) 33.2 % (37-47); Hemoglobin 10.5 g/dL (12.0-16.0); Lymphocytes # (auto) 1.72 K/uL (1.2-3.4); Lymphocytes % (auto) 35.4 %; Mean Corpuscular Hemoglobin 28.1 pg (25-34); Mean Corpuscular Hgb Conc 31.6 g/dL (32-36); Mean Corpuscular Volume 88.8 fL (80-100); Mean Platelet Volume 10.3 fL (7.4-10.4); Monocytes # (auto) 0.72 K/uL (0.11-0.59); Monocytes % (auto) 14.8 %; Neutrophils # (auto) 2.32 K/uL (1.4-6.5); Neutrophils % (auto) 47.8 %; Platelet Count 138 K/uL (130-400); RDW Coefficient of Variation 16.2 % (11.5-14.5); RDW Standard Deviation 51.9 fL (36.4-46.3); Red Blood Count 3.74 M/uL (4.2-5.4); White Blood Count 4.86 K/uL (4.8-10.8)
[2019-04-23] MEDS ORDERED: FUROSEMIDE 40 MG TAB PO ONE (14:21)
[2019-04-23] MEDS: SIMVASTATIN 40 MG TAB PO SCH (20:02)
--- NOTE | 2019-04-23 20:18 | Hospitalist Progress Note ---
Date of Service April 23, 2019 Assessment & Plan (1) Atrial fibrillation: Appreciate cardiology consultation and recs. Rates controlled with metoprolol. stop heparin; start eliquis 2.5mg BID for anticoagulation (meets criteria for lower dose based on weight and age). No symptoms from the a.fib. Suspect a.fib could have led to the decompensated diastolic CHF. Despite c/o SCHNEIDER today her a.fib rates were excellent during activity. (2) Diastolic heart failure due to valvular disease: Volume status approaching euvolemia although still w/ mild JVD today. Give lasix 40mg po x [address] Tirado recommending 40mg alternating with 20mg QOD at home. He also recommends continuing the aldactone. BUN & CR stable in midst of diuresis. EF preserved on echo. Suspect a.fib, valvular disease, etc all contributed to decompensated CHF. (3) Osteoarthritis of left knee: left knee mod-severe OA. CPPD (pseudogout) findings also present. 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 Cont voltaren gel 4gm QID to L knee for pain control. Appreciate ortho consultation. (4) Elevated troponin: myocardial demand ischemia in setting of a.fib, decompensated CHF, etc no ACS (5) Hypothyroidism: TSH wnl cont synthroid (6) Hyperlipidemia: cont statin agent (7) Coronary artery disease: no ischemic symptoms at this time although could some of the SCHNEIDER be from CAD? wall motion on echo wnl however cont asa, BB, statin (8) Hypertension: controlled (9) Chronic kidney disease, stage 3a: creatinine stable/at baseline BMP am again (10) DVT prophylaxis: evan son extensively updated at bedside 04/22 daughter updated at bedside 04/23 PT, OT sahil PT recommending home with HH hopefully d/c home in am Subjective overall she feels better in comparison to admission. her main complaint is that of dyspnea on exertion. when she was grooming in the bathroom this am she was quite short of breath. I checked the monitor during the time she was ambulating, grooming, etc --- a.fib rates were well under 100. voltaren gel has helped left knee pain. no chest pain. no orthopnea. daughter at bedside. tele -- a.fib with good rates. Review of Systems Constitutional: no fever, no chills, no fatigue and no anorexia Respiratory: + cough and + dyspnea on exertion Cardiovascular: + edema; no chest pain, no dyspnea at rest, no orthopnea and no paroxysmal nocturnal dyspnea Gastrointestinal: no abdominal pain, no nausea and no vomiting Physical Exam Constitutional: average body habitus; no acute distress and no altered mental status ENMT: external ear and nose normal, oropharynx normal Respiratory: normal respiratory effort, lungs clear to auscultation no respiratory distress Auscultation: no crackles and no wheezes Cardiovascular: Rate/Rhythm: regular rate and + irregularly irregular Heart Sounds: normal S1, normal S2 and + murmur (3/6 holosystolic - loudest LLSB (also heard RUSB)) Vessels: + JVD, posterior tibial pulses present and dorsalis pedis pulses present Extremities: + edema (trace left leg, none on right) Gastrointestinal (Abdomen): normal bowel sounds, soft, nontender, no hepatosplenomegaly Musculoskeletal: mild effusion left knee with OA bony changes Psychiatric: A+Ox3, euthymic affect Results & Data Vital Signs (Past 12 Hours) Vital Signs Temp Pulse Pulse Resp BP BP Pulse Ox 04/23/19 19:08 36.5 C 63 20 108/66 95 04/23/19 15:20 36.8 C 74 20 97/59 L 95 04/23/19 14:00 66 04/23/19 12:18 36.9 C 72 20 104/68 95 Laboratory Results Laboratory Results - last 24 hr 04/23/19 04/23/19 04/23/19 05:18 05:18 05:18 WBC 4.86 RBC 3.74 L Hgb 10.5 L Hct 33.2 L MCV 88.8 MCH 28.1 MCHC 31.6 L RDW Std Deviation 51.9 H RDW Coeff of Steve 16.2 H Plt Count 138 MPV 10.3 Immature Gran % (Auto) 0.0 Neut % (Auto) 47.8 Lymph % (Auto) 35.4 [place] % (Auto) 14.8 Eos % (Auto) 1.4 Baso % (Auto) 0.6 Immature Gran # (Auto) 0.00 Neut # (Auto) 2.32 Lymph # (Auto) 1.72 [place]ard # (Auto) 0.72 H Eos # (Auto) 0.07 Baso # (Auto) 0.03 APTT 76.2 H* PTT Ratio 2.8 Sodium 142 Potassium 4.0 D Chloride 108 H Carbon Dioxide 31 Anion Gap 3.0 BUN 13 Creatinine 0.85 Est Cr Clr Drug Dosing 40.8 Est GFR ( Amer) 72.9 Est GFR (Non-Af Amer) 62.9 BUN/Creatinine Ratio 15.7 Glucose 90 Calcium 8.7 PG Care Time/CCT Total # of Minutes Spent Total Time Spent with Patient: Total time spent is greater than 50% in coordination of care (as documented) at patient's floor/unit and/or counseling patient: (1) Coronary artery disease Associated angina: with stable angina Coronary Disease-Associated Artery/Lesion type: [place] artery [place] vs. transplanted heart: [place] heart Qualified Code(s): I25.118 - Atherosclerotic heart disease of [place] coronary artery with other forms of angina pectoris (2) Atrial fibrillation Atrial fibrillation type: unspecified Qualified Code(s): I48.91 - Unspecified atrial fibrillation (3) Diastolic heart failure due to valvular disease Heart failure chronicity: acute Qualified Code(s): I50.31 - Acute diastolic (congestive) heart failure; I38 - Endocarditis, valve unspecified (4) Hyperlipidemia Hyperlipidemia type: unspecified Qualified Code(s): E78.5 - Hyperlipidemia, unspecified (5) Hypothyroidism Hypothyroidism type: unspecified Qualified Code(s): E03.9 - Hypothyroidism, unspecified (6) Osteoarthritis of left knee Osteoarthritis type: primary Qualified Code(s): M17.12 - Unilateral primary osteoarthritis, left knee (7) Hypertension Hypertension type: essential hypertension Qualified Code(s): I10 - Essential (primary) hypertension
[2019-04-24] MEDS: LEVOTHYROXINE SODIUM 112 MCG TABLET PO SCH (06:06)
[2019-04-24 06:53] LABS: BUN Creatinine Ratio 16.4 (10-20); Calcium 8.8 mg/dl (8.5-10.1); Creatinine Clr Calc Pharmacy 39.8 ml/min; Est GFR (African American) 70.9; Est GFR (Non-African American) 61.2; Potassium 4.3 mmol/L (3.5-5.1)
[2019-04-24] MEDS: MAGNESIUM OXIDE 400 MG TAB PO SCH (07:38)
[2019-04-24] MEDS: METOPROLOL TARTRATE 50 MG TAB PO SCH (07:38)
[2019-04-24] MEDS: SPIRONOLACTONE 25 MG TAB PO SCH (07:38)
[2019-04-24] MEDS: APIXABAN 2.5 MG TAB PO SCH (07:38)
[2019-04-24] MEDS: OXYCODONE HCL 15 MG TABCR (OXYCONTIN) PO SCH (07:38)
[2019-04-24] MEDS: ASPIRIN 81 MG ECTAB PO SCH (07:38)
[2019-04-24] MEDS: DICLOFENAC SOD 1% GEL 100 GM TUBE EXT SCH (07:39)
[2019-04-24] MEDS: DOCUSATE SODIUM 100 MG CAP PO SCH (07:45)
[2019-04-24] MEDS ORDERED: FUROSEMIDE 20 MG TAB PO ONE (08:30)
--- NOTE | 2019-04-24 09:19 | Cardiology Progress Note ---
Date of Service April 24, 2019 Assessment & Plan (1) Atrial fibrillation: Significant left atrial enlargement and severe valvular heart disease predicts a low likelihood for the rastafari of sinus rhythm Rate controlled at rest and with activity. [id number] Score 5-[address]. Aarti recommended by [address]. Tirado. Given her age and body weight of less than 60 kg the dosing should be 2.5 mg twice per day (2) Valvular heart disease: Severe mitral and tricuspid regurgitation No significant aortic valve stenosis (3) Diastolic heart failure due to valvular disease: Volume status currently appears compensated with the exception of mildly elevated jugular venous distention Spironolactone 25 mg/day added this admission Furosemide increased from 20 mg/day to 20 mg one day alternating with 40 mg the next day. Patient may require further titration of furosemide to 40 mg/day (4) Elevated troponin: Likely multifactorial in etiology. Certainly no evidence to suggest an acute coronary syndrome LV systolic function preserved with moderate concentric left ventricular hypertrophy. Patient with known coronary artery disease Status post November 10, 2010 PCI of the proximal LAD with a 3.5 x 18 Xience drug eluting stent. Small septal branch occlusion noted with the LAD intervention May 31, 2018 coronary angiography revealed diffuse minor irregularities with non-obstructive coronary artery disease including a patent proximal LAD with no in-stent restenosis. Recommend medical management (5) Hypertension: Blood pressure well controlled Follow (6) Hyperlipidemia: Last LDL was 59 mg/deciliter on April 18, 2018. Continue moderate intensity statin therapy Given chronic myalgias and arthralgias patient may benefit from switching simvastatin to rosuvastatin 20 mg/day (7) Anemia, unspecified: Anemia workup recommended. Cardiology follow-up at [facility] Dr. Francesco Ochoa on Sunday, May 12, 2019 at 9:15 AM. Supervising Physician Co-Signing Physician Notes Patient seen and examined with Jefferson Horn PA-C. Agree with findings and assessment as above. Pt feeling better. Dyspnea improving. Rates controlled. General: Awake, alert and oriented x 3. No acute distress. HEENT: Normocephalic, atraumatic. Pupils equal, round and reactive to light and accommodation. Extraocular muscles are intact. Anicteric sclera. Moist mucous membranes. Neck: No JVD. No bruit. Cardiovascular: irregularly irregular, unable to appreciate murmur, rub or gallop. Pulmonary: Clear to auscultation bilaterally. No rales, rhonchi, or wheezing. Abdomen: Bowel sounds x 4, soft. No rebound, guarding or tenderness. No organomegaly. Extremities: No clubbing, cyanosis or edema. +2 pedal pulses bilaterally. Skin: Warm and dry. Subjective Patient seen and examined. Chart, medications, telemetry reviewed. Exertional dyspnea has improved. No current cough. Stable orthopnea. No PND. Lower extremity peripheral edema has improved. No chest pain. No palpitations. No lightheadedness or dizziness. No near syncope or syncope. I/O's are positive 977.633 mL during this admission Continuous telemetry monitoring reveals atrial fibrillation with rates typically in the 60s and 70s. No significant bradycardia. No significant pauses. Review of Systems Review of Systems: All systems reviewed & are unremarkable except as noted in HPI & below Physical Exam Physical Exam: General: A&Ox3. NAD. HEENT: Normocephalic. Atraumatic. PER. Conjunctiva pink, sclera clear. Neck: 4 cm of jugular venous distention. Positive hepatojugular reflux. No carotid bruits. Heart: Irregularly irregular in the 60s. Soft apical systolic murmur. No diastolic murmur. PMI is nondisplaced. Lungs: Clear to auscultation. Abdomen: +BS. Soft. Nontender. No masses or organomegaly. Extremities: No clubbing, cyanosis, or edema. Limited neurological examination is without focal deficits. Pulses: radial=2/4, posterior tibial=1/4. Results & Data Vital Signs (Past 12 Hours) Vital Signs Temp Pulse Pulse Resp BP BP Pulse Ox 04/24/19 07:13 37.1 C 59 L 17 107/65 95 04/24/19 03:50 36.8 C 73 18 109/71 91 04/24/19 00:00 61 04/23/19 23:14 36.8 C 64 17 117/76 95 Laboratory Results - last 24 hr 04/23/19 04/24/19 05:18 05:56 WBC 4.86 RBC 3.74 L Hgb 10.5 L Hct 33.2 L MCV 88.8 MCH 28.1 MCHC 31.6 L RDW Std Deviation 51.9 H RDW Coeff of Steve 16.2 H Plt Count 138 MPV 10.3 Immature Gran % (Auto) 0.0 Neut % (Auto) 47.8 Lymph % (Auto) 35.4 [place] % (Auto) 14.8 Eos % (Auto) 1.4 Baso % (Auto) 0.6 Immature Gran # (Auto) 0.00 Neut # (Auto) 2.32 Lymph # (Auto) 1.72 [place] # (Auto) 0.72 H Eos # (Auto) 0.07 Baso # (Auto) 0.03 Sodium 139 Potassium 4.3 Chloride 106 Carbon Dioxide 28 Anion Gap 5.0 BUN 14 Creatinine 0.87 Est Cr Clr Drug Dosing 39.8 Est GFR ( Amer) 70.9 Est GFR (Non-Af Amer) 61.2 BUN/Creatinine Ratio 16.4 Glucose 81 Calcium 8.8 Magnesium 2.0 (1) Atrial fibrillation Atrial fibrillation type: unspecified Qualified Code(s): I48.91 - Unspecified atrial fibrillation (2) Diastolic heart failure due to valvular disease Heart failure chronicity: acute Qualified Code(s): I50.31 - Acute diastolic (congestive) heart failure; I38 - Endocarditis, valve unspecified (3) Hyperlipidemia Hyperlipidemia type: unspecified Qualified Code(s): E78.5 - Hyperlipidemia, unspecified (4) Hypertension Hypertension type: essential hypertension Qualified Code(s): I10 - Essential (primary) hypertension
--- NOTE | 2019-04-24 11:10 | Discharge Summary ---
Date of Service date of admission - April 21, 2019 date of discharge - April 24, 2019 Admission HPI Per Admitting Provider Ale Escobedo is a pleasant 83yo C female with history of CAD s/p NSTEMI with proximal LAD stent placement in 2010, severe calcific aortic stenosis presenting with new onset atrial fibrillation. Patient reports 2 weeks of LE edema, L > R as well as dyspnea with minimal exertion of appx 50 feet. Also with occasional SOB at rest. Also reports some exertional chest heaviness which is relieved with rest. She denies non-exertional chest discomfort, denies palpitations, orthopnea, PND, denies numbness/tingling/weakness. She was seen by her PCP, Lorenza Alcantara, today and was found to be in atrial fibrillation, no history of the same. She had gone to the PCP's office for her left knee pain. ER Course: Heparin gtt Prior Cardiology records: [facility] 06/10/18 - Small PFO, no ASD. RV cavity is mildly dilated with normal systolic function. Qualitative LVEF is 55-59% (normal). Moderate secondary MR is present. Moderate to severe TR is present. Mild Aortic valve regurgitation is present. Cardiac Cath 05/2018: Coronary arteries have diffuse minor irregularities with non-obstructive CAD. Previously placed stent in the proximal LAD has no in- stent restenosis. Moderate postcapillary pulmonary hypertension. Step up of oxygen saturation between SVC and RV of 10%. Mean gradient across aortic valve is 16 mmHg indicating no significant stenosis. LVEDP 18mmHg which is mildly elevated Echo 02/05/17: severe calcific aortic stenosis. Moderate LVH, EF > 70%. Normal RV function. Left and right atriums severely dilated. Mild MR, mild to moderate TR Principal Diagnosis new-onset atrial fibrillation Discharge Exam Constitutional average body habitus; no acute distress and no altered mental status ENMT external ear and nose normal, oropharynx normal Respiratory normal respiratory effort, lungs clear to auscultation no respiratory distress Auscultation: no crackles and no wheezes Cardiovascular Rate/Rhythm: regular rate and + irregularly irregular Heart Sounds: normal S1, normal S2 and + murmur (3/6 holosystolic - loudest LLSB (also heard RUSB)) Vessels: + JVD (minimal), posterior tibial pulses present and dorsalis pedis pulses present Extremities: + edema (trace left leg, none on right) Gastrointestinal (Abdomen) normal bowel sounds, soft, nontender, no hepatosplenomegaly Musculoskeletal Knee: + deformity (OA changes) and + effusion (mild); no skin erythema Psychiatric A+Ox3, euthymic affect Discharge Data Allergies Allergy/AdvReac Type Severity Reaction Status Date / Time doxycycline AdvReac nauseated Verified 04/28/19 14:05 Consultations 1. [facility] - Dr Sanford Tirado 2. orthopedics - Jonathan Capone MD 3. PT, OT Ordered Studies 1. LLE venous doppler negative for DVT. Superficial fluid collection in the anterior knee may represent hematoma. This does not appear to be deep to the quadriceps muscle complex to suggest a distended suprapatellar recess in the setting of a joint effusion. 2. echocardiogram - * EF 55-60% * severe MR * severe TR * moderate LVH * no aortic stenosis * moderate pulmonary HTN * no wall motion abnormalities 3. left knee x-rays - IMPRESSION: 1. Small left knee effusion. 2. No fractures. 3. Tricompartmental osteoarthritis with chondrocalcinosis. Hospital Course (1) Atrial fibrillation: Initiated on heparin drip at time of admission. Beta blockade with metoprolol BID was continued. She was seen in consult by [facility]. Long-term anticoagulation was recommended in the form of eliquis 2.5mg BID (meets criteria for lower dose based on weight and age). She had no specific symptoms from the a.fib. Suspect a.fib could have led to the decompensated diastolic CHF at admission, however. A.fib rates were excellent during times of activity throughout her hospitalization. (2) Diastolic heart failure due to valvular disease: At time of admission the patient had decompensated diastolic CHF in addition to the newly-discovered a.fib. She was diuresed and volume status approached euvolemia prior to discharge. Dr Sanford Tirado from [facility] recommended 40mg of lasix alternating with 20mg QOD at home. He also recommended aldactone 25mg qam. BUN & CR remained stable in the midst of diuresis. EF was preserved on echo. Suspect a.fib, valvular disease, etc all contributed to decompensated CHF. She was counseled on importance of checking daily weights, restricting fluids & salt, and taking her diuretics. (3) Osteoarthritis of left knee: Left knee mod-severe OA on x-rays. CPPD (pseudogout) findings also present. 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 Started voltaren gel 4gm QID to L knee for pain control. Seen by orthopedics during this admission; conservative Rx recommended. Consider outpatient follow-up if she fails conservative measures to control her pain. (4) Elevated troponin: Likely due to myocardial demand ischemia in setting of a.fib, decompensated CHF, etc no ACS while hospitalized. (5) Hypothyroidism: TSH wnl cont synthroid (6) Hyperlipidemia: cont statin agent (7) Coronary artery disease: no obvious ischemic symptoms at this time although could some of her chronic SCHNEIDER be from underlying CAD? wall motion on echo wnl however cont asa, BB, statin (8) Hypertension: controlled during this hospitalization with current medications. (9) Chronic kidney disease, stage 3a: creatinine stable/at baseline during the visit. discharge Cr 0.87. Total Time Total Time Spent Total Time Spent (In Minutes): 40 Total Time Includes: Examination of the Patient, Discharge Planning, Medication Reconciliation and Communication With Other Providers Discharge Plan Discharge Items Patient Disposition: Home - Self-Care Reason For Visit: NEW ONSET ATRIAL FIBRILLATION Discharge Diagnosis: 1. NEW ONSET ATRIAL FIBRILLATION - CONTROLLED. 2. Diastolic Congestive Heart Failure - improved/controlled; fluid retention in lungs resolved. 3. left knee - advanced osteoarthritis and pseudogout. Goals: 1. improve left knee pain 2. control a.fib 3. improve the breathing Activity: Resume your previous activity Activity Comment: as tolerated Non-emergency contact: Primary Care Provider and Support Services Coordinator Call non-emergency contact if: you have any medication questions, your symptoms worsen, your pain is not controlled, your pain is worsening and you have a fever Follow-up/Referrals: Lorenza Alcantara CRNP [Primary Care Provider] - 04/28/19 2:00 pm (Please, follow up with Lorenza HAYES on SundayApril 28 at 2:00 pm. *If you need to change this appointment, call the office at [phone].) Francesco Ochoa DO [Support Services Coordinator] - 05/12/19 9:15 am ([facility] ) Diet: Heart Healthy Fluids: 1500ml (6 cups) Addtl Attending Provider Instructions: You were admitted for newly discovered atrial fibrillation and acute diastolic congestive heart failure (fluid retention in the lungs causing breathing difficulty). The a.fib may have caused/contributed to the congestive heart failure. The a.fib is an irregular heart rhythm that originates from the top portion of your heart. It has been well-controlled with medication while here. A.fib is a well-known risk factor for stroke; thus, we are recommending blood thinners to you to reduce the risk of stroke. Your breathing improved with diuretics (water pills). You lost a considerable amount of fluid weight while here. Your left knee pain is due to fairly advanced osteoarthritis. There may be a component of "pseudogout" of the left knee as well. Recommendations: 1. a.fib - * take eliquis blood thinner 2.5mg twice daily every day 2. congestive heart failure - * check your weight EVERY MORNING on the same scale; best to weight yourself after using the toilet. Write your weight down in a notebook and keep a tally over time. * if you gain more than 2-3 pounds over 1-2 days please contact your director funeral OR your family doctor right away for guidance. * START spironolactone 25mg once daily in the morning; new prescription provided; this is a form of water pill * ALTERNATE on a daily basis 20mg tablets of lasix (furosemide) with 40mg of lasix; in other words, on one day take 20mg and then the next day take 40mg; then the following day take 20mg...and so forth * on 04/24/19 you received 20mg of lasix; thus, on the AM of 04/25/19, take 40mg of lasix; continue to alternative the dose moving forward 3. please STOP your potassium supplement. 4. please STOP your zantac (ranitidine) use; it has been recalled nationally as it is contaminated with a cancer-causing chemical. In its place take - * omeprazole 20mg once daily every morning; I would take this EVERY DAY 5. may use voltaren (diclofenac) gel -- 4 grams to left knee (or the right knee) up to 4 times a day for arthritis pain. Congestive Heart Failure Instructions: Call 911 and go to the Emergency Room if: * You have tightness or pain in your chest that does not go away with rest or Nitroglycerin * You are very short of breath even with rest Call your doctor if any of the following symptoms or problems start or get worse: * Shortness of breath or difficulty breathing * Wake up at night short of breath * Chest pain * Cough * Swelling of your hands, fee, or legs * More fatigued or tired with your normal activity * Palpitations - sudden fast heart beats WEIGHT * Weigh yourself every morning after using the bathroom. * Use the same scale. * Wear the same amount of clothing. * Write your weight down on your chart. * Call your doctor if you gain more than 2-3 pounds in 1-2 days. This is often the first sign of fluid retention from your congestive heart failure.* MEDICATIONS * Use this discharge instruction sheet for instructions. * Take your medications at the time your doctor ordered. * Do not skip a dose of your medicines. * If you miss a dose of medicine, take as soon as possible, but DO NOT DOUBLE A DOSE. * Read your medicine information when you get home. * Know all of the side effects of your medicine. * Call your doctor's office if you have any side effects. * Be sure all of your doctors know what medicine and herbs you take (including cold, flu, and herbal medicine). * Pain Medicine: If you do not get relief from your pain, please call your doctor for help. Take the following with you to your follow-up doctor appointments: * Weight Chart * Medication List * List of questions Do not drink excessive alcohol, beer or wine. Anticoagulation (blood thinner) instructions: Your a.fib condition is typically treated with an anticoagulant. Anticoagulants will thin your blood to help prevent new clots in your heart. Your blood thinner is "ELIQUIS." * You should take her medication exactly as directed. * Never skip a dose. * Never take a double dose. If you miss a dose, take it as soon as you remember. Call your Primary Care doctor if you experience any of the following: * Swelling or Pain in your leg * Sudden, continuous pain deep in a muscle * Pain that worsens when you are active or when you stand still for a long time * Chest Pain * Sudden Shortness of Breath * Rapid or pounding heart beat * Fainting * Dizziness * Cough with blood or bloody sputum * Sweating more than normal * Bruises * Heavy or uncontrolled bleeding * Blood in your urine, stool or vomit * Black or tarry stools * Severe nosebleeds Follow-up -- see separate section Return to [facility] if -- * you have rapid weight gain, shortness of breath (above your typical/baseline amount), chest pains * you have to use your nitroglycerin tablets * you have fevers over 100.5 degrees * you have rapid heart beating or palpitations * you have concerns of bleeding from any location * any other concerns Pending Studies at Discharge: No Stand-Alone Forms: My [facility] Medications and DC Order Prescriptions: New spironolactone 25 mg Tablet 25 mg PO QAM Qty: 30 RF: 5 diclofenac sodium [Voltaren] 1 % Gel 4 g EXT QID Qty: 1 RF: 5 Eliquis 2.5 mg Tablet 2.5 mg PO BID Qty: 60 RF: 5 omeprazole 20 mg capsule,delayed release(DR/EC) 20 mg PO DAILY Qty: 30 RF: 5 Continued metoprolol tartrate 50 mg tablet 50 mg PO BID Qty: 180 RF: 1 simvastatin 40 mg tablet 40 mg PO HS Qty: 90 RF: 1 oxycodone 5 mg tablet 5 - 10 mg PO Q8H PRN (Reason: Pain) Qty: 90 RF: 0 oxycodone [OxyContin] 30 mg tablet,oral only,ext.rel.12 hr 30 mg PO Q12H Qty: 50 RF: 0 docusate sodium 100 mg capsule 100 mg PO DAILY RF: 0 nitroglycerin 0.4 mg tablet, sublingual 0.4 mg SL UD PRN (Reason: Chest Pain) RF: 0 aspirin [Aspir-81] 81 mg tablet,delayed release (DR/EC) 81 mg PO DAILY RF: 0 cholecalciferol (vitamin D3) [Vitamin D3] 1,000 unit capsule 1,000 unit PO DAILY RF: 0 multivitamin tablet 1 tab PO DAILY RF: 0 levothyroxine 112 mcg tablet 112 mcg PO DAILY RF: 0 Changed furosemide 20 mg tablet 20 mg PO DIRECTED Qty: 60 RF: 5 Discontinued potassium chloride 10 mEq tablet extended release 10 meq PO DAILY RF: 0 ranitidine HCl [Zantac] 150 mg tablet 150 mg PO DAILY PRN (Reason: Acid Reflux) RF: 0 Discharge Orders: Discharge Order (Routine); Ordered 04/24/19 Ordered By: Talha Gould/Other Patient Handouts: ED Afib Admission Data Admit Date/Time: 04/21/19 14:29 Attending Provider: Talha Boategn Admit Provider: Ingris Marley Primary Care Provider: Lorenza Alcantara Other Providers: Sanford Tirado ; Ingris Marley ; Jordon Sharma Other Interventions: Discharge Summary Assessment (RN) Last Done: 04/24/19 11:37 DC Date/Time DO NOT enter until pt leaves facility: 04/24/19 12:08
== END 2019-04-24 12:08 | disposition home or self-care (01) | DRG 308 ==
LOC: ED 11:35 → 2S 14:29 → SUATTDRO 14:29 → 2S 16:06

== ENCOUNTER 2021-03-17 21:39 | Inpatient (IN) ==
[2021-03-17] MEDS ORDERED: HYDROmorphone INJ 0.5 MG/0.5 ML SYR IV PRN (22:40)
[2021-03-17] MEDS ORDERED: ONDANSETRON INJ 2 MG/ML 2 ML VIAL IV STA (22:40)
[2021-03-17 22:58] LABS: Basophils # (auto) 0.02 K/uL (0-0.2); Basophils % (auto) 0.3 %; Eosinophils # (auto) 0.16 K/uL (0-0.5); Hematocrit (blood only) 39.5 % (37-47); Immature Granulocytes # (auto) 0.03 K/uL (0.00-0.02); Immature Granulocytes % (auto) 0.4 %; Lymphocytes # (auto) 0.92 K/uL (1.2-3.4); Lymphocytes % (auto) 11.7 %; Mean Corpuscular Hemoglobin 30.4 pg (25-34); Mean Corpuscular Hgb Conc 32.9 g/dL (32-36); Mean Corpuscular Volume 92.3 fL (80-100); Mean Platelet Volume 10.9 fL (7.4-10.4); Monocytes # (auto) 0.51 K/uL (0.11-0.59); Monocytes % (auto) 6.5 %; Neutrophils # (auto) 6.21 K/uL (1.4-6.5); Neutrophils % (auto) 79.1 %; Platelet Count 117 K/uL (130-400); RDW Coefficient of Variation 14.3 % (11.5-14.5); RDW Standard Deviation 48.4 fL (36.4-46.3); Red Blood Count 4.28 M/uL (4.2-5.4); White Blood Count 7.85 K/uL (4.8-10.8)
[2021-03-17 23:08] LABS: INR 1.2 (0.9-1.1); Prothrombin Time 11.8 Seconds (9.0-12.0)
[2021-03-17 23:12] LABS: Appearance Urine Clear (Clear); Bacteria Urine Automated Negative (Negative); Bilirubin Urine Negative (Negative); Blood Urine 3+ (Negative); Color Urine Yellow; Epithelial Cell Urine Auto >30 /lpf (0-5); Glucose Urine UA Negative (Negative); Ketones Urine Negative (Negative); Leukocyte Esterase Urine 1+ (Negative); Nitrite Urine Negative (Negative); Protein Urine Trace (Negative); RBC Urine Automated >30 /hpf (0-4); Urobilinogen Urine Negative (Negative)
[2021-03-17 23:30] LABS: Albumin Level 3.8 gm/dl (3.4-5.0); BUN Creatinine Ratio 51.1 (10-20); Calcium 9.6 mg/dl (8.5-10.1); Est GFR (African American) 36.5 ml/min; Est GFR (Non-African American) 31.5 ml/min; Potassium 4.1 mmol/L (3.5-5.1)
[2021-03-17 23:33] LABS: Albumin Globulin Ratio 0.8 (0.9-2); Bilirubin,Total 1.1 mg/dl (0.2-1); Total Protein 8.8 gm/dl (6.4-8.2)
[2021-03-17] MEDS ORDERED: SODIUM CHLORIDE 0.9% 1000ML 1,000 ML IV STA (23:55)
--- NOTE | 2021-03-18 00:03 | Emergency Department Note ---
Impression & Plan Bradycardia, Acute UTI (urinary tract infection), T12 compression fracture, Fall ED Provider Note INFORMANT: Patient and family ED PROVIDER(S): Ildefonso Ng MD CHIEF COMPLAINT: Fall PLAN: Disposition: Admitted Condition: Good Outpatient prescription management: none Referral: None MEDICAL DECISION MAKING: Patient presented due to a fall and back pain. She was noted to be bradycardic on presentation. She has an A. fib with slow ventricular response noted on her ECG. The patient is unsure if she lost consciousness with the fall. Head CT imaging did not reveal any acute findings. The patient was treated with IV Dilaudid and Zofran. She did feel better with this. CT imaging of the back reveals a T12 compression fracture. She was also found to have a UTI. Laboratory testing was rather unremarkable. The patient was given IV Rocephin. Consultation for hospital admission will be necessary. I discussed this with the patient and daughter. They were in agreement. Consultation was made with Dr. Homero Ma of the [facility] service. Patient was evaluated in the ER for further management. Triage Nursing notes reviewed and agree them. Vital Signs: reviewed and remarkable for bradycardia Differential diagnosis: Cardiac sources, infection, accidental fall, musculoskeletal, disc herniation, f racture, metastatic disease, cord compression, discitis, sciatica, cauda equina, aortic disease, renal colic, gastrointestinal, as well as other pathologies. Diagnostics interpreted by me: ECG: Twelve-lead ECG reveals atrial fibrillation with slow ventricular response at 54 bpm with right superior axis deviation. Anterior Q waves present. No ST elevation. PVCs. Cardiac Monitoring: Cardiac monitoring ordered by me: The patient was placed on continuous cardiac monitoring and observed. It revealed atrial fibrillation at 43 bpm. Imaging studies: Head CT: A noncontrast CT scan of the head was performed and was negative for tumor, fracture, intracranial hemorrhage, or other acute pathology. CT scan of the lumbar spine reveals a T12 compression fracture with mild associated edema/hemorrhage. No retropulsion noted. HPI: The patient is a 85 year old female who presents to the Emergency Room with complaints of back pain. This started just prior to arrival and is from a fall. The patient is unsure why she fell. She was getting out of the shower. She fell down and hurt her lower back. The patient also notes the following associated symptoms, pain radiating towards the left hip. The patient has been given oxycodone for relieving factors. Current pain is rated as 7/10. Patient has a history of spinal stenosis. She also has cervical fusion. She denies any current neck pain. She does not think she hit her head. She is anticoagulated secondary to atrial fibrillation. Pt denies LOC, headache, fevers, chills, diaphoresis, visual changes, neck pain, chest pain, breathing difficulties, nausea, vomiting, abdominal pain, melena, hematochezia, urinary symptoms, numbness, weakness, lymphadenopathy, rash, or other complaints. ROS: See above HPI for pertinent positives & negatives. A total of 10 systems r eviewed and were otherwise negative. PAST MEDICAL HISTORY:See Below , spinal stenosis, hypertension, hypothyroidism PAST SURGICAL HISTORY:See Below, cervical fusion FAMILY HISTORY:See Below SOCIAL HISTORY:See Below, lives with family HOME MEDICATIONS:See Below ALLERGIES:See Below VITALS:See Below PHYSICAL EXAMINATION: GENERAL: Awake, alert, uncomfortable-appearing, in no distress HENT: Normocephalic, atraumatic. Oropharynx unremarkable. EYES: Normal conjunctiva. Sclera non-icteric. NECK: Inspection normal. Non-tender. Supple. No nuchal rigidity. FROM. No masses. RESPIRATORY: Clear to auscultation. No wheezes. No rales. Normal respiratory effort. CARDIAC: Normal rate. Normal rhythm. No murmurs. No rubs. Extremities warm and well perfused. Pulses equal. No JVD. GI: Soft, non-distended. No tenderness to palpation. No rebound or guarding. No masses. RECTAL: Deferred. MUSCULOSKELETAL: Atraumatic upper and lower extremities. Chest examination reveals no tenderness. The back is tender in the lumbar midline. There is no CVA tenderness to palpation. No joint edema. LOWER EXTREMITIES: Calves are equal size bilaterally and non-tender. No edema. No discoloration. NEURO: Normal sensorium. No sensory or motor deficits noted. SKIN: No rash or jaundice noted. Ildefonso Ng MD Past Med/Surg History Medical History (Updated 03/18/21 @ 00:48 by Ildefonso Ng MD) CAD (coronary artery disease) NSTEMI, s/p proximal LAD stent in 2010 Compression fracture of L1 lumbar vertebra Hx of myocardial infarction Pseudogout of right wrist Pseudogout of right wrist Severe aortic stenosis Surgical History (Updated 10/27/19 @ 13:24 by Sarah Saenz MA) H/O bilateral hip replacements H/O neck surgery History of cataract surgery Family History (Updated 02/10/21 @ 08:08 by Albina Marcial MA) Father Lung disease Sister Diabetes Breast cancer Other Heart disease Denies family history of Ovarian cancer Prostate cancer Coronary heart disease Colorectal cancer Cancer Social History (Updated 02/10/21 @ 08:08 by Albina Marcial MA) Smoking Status: Never smoker Second Hand Exposure: No; Hx Alcohol Use: No Hx Substance Use: No Preferred Language: Citizen Of [place] Communication Ability: Effective Visual Impairment: No Limitations Hearing Ability: Normal Beliefs That Will Affect Care: None Current Living Situation: Alone current occupational status: retired Feels Safe at Home: Yes Childhood Exposure to Second-Hand Smoke: Yes caffeine: Yes Dental Care, Regularly: No Physical Activity Frequency: Does not Exercise Seatbelt Use: always Sunscreen Use: Yes Assistive Devices: None Allergies Allergies Allergy/AdvReac Type Severity Reaction Status Date / Time doxycycline AdvReac nauseated Verified 02/10/21 07:57 Home Meds Home Medications Medication Instructions Recorded Confirmed nitroglycerin 0.4 mg sublingual 0.4 mg SL UD PRN tab 11/22/18 03/17/21 tablet multivitamin 1 tab PO DAILY 12/17/18 03/17/21 docusate sodium 100 mg capsule 100 mg PO DAILY PRN cap 06/04/19 03/17/21 furosemide 40 mg tablet 40 mg PO BID tab 02/10/21 03/17/21 spironolactone 25 mg tablet 12.5 mg PO DAILY tab 02/10/21 03/17/21 aspirin 81 mg tablet,delayed 81 mg PO DAILY 03/17/21 03/17/21 release (Aspirin Low Dose) diclofenac sodium 1 % topical gel 4 g TOPICAL QID PRN 03/17/21 03/17/21 levothyroxine 112 mcg tablet 112 mcg PO DAILY 03/17/21 03/17/21 lisinopril 5 mg tablet 5 mg PO DAILY 03/17/21 03/17/21 Previous Rx's Medication Instructions Recorded apixaban 2.5 mg tablet (Eliquis) 2.5 mg PO BID #180 tab 01/12/21 metoprolol tartrate 50 mg tablet 50 mg PO BID #180 tab 01/12/21 hydrocodone bitartrate 30 mg 30 mg PO DAILY #30 tab 02/15/21 tablet,crush resist,extended rel. 24hr oxycodone 5 mg tablet 5 - 10 mg PO Q8H PRN #100 tab 03/03/21 Results & Data (ED) Vital Signs Vital Signs - 24 hr 03/17/21 21:34 Temperature 36.7 C Temperature Source Oral Pulse Rate 43 L Pulse Strength Normal Respiratory Rate 16 Respiratory Effort / Characteristics Non-Labored Spontaneous Respiratory Depth Normal Respiratory Pattern Regular Blood Pressure 120/63 Blood Pressure Mean 82 Blood Pressure Position Lying Pulse Oximetry 98 Oxygen Delivery Method Room Air Sepsis Recent Fever Within 48 Hours No Sepsis New/Unexplained Change in Mental Status No Sepsis Action Taken by Nursing No Action Required Laboratory Data Result diagrams: 03/17/21 22:48 03/17/21 22:48 Lab Results 03/17/21 03/17/21 03/17/21 Range/Units 22:48 22:48 22:48 WBC 7.85 (4.8-10.8) K/uL RBC 4.28 (4.2-5.4) M/uL Hgb 13.0 (12.0-16.0) g/dL Hct 39.5 (37-47) % MCV 92.3 (80-100) fL MCH 30.4 (25-34) pg MCHC 32.9 (32-36) g/dL RDW Std Deviation 48.4 H (36.4-46.3) fL RDW Coeff of Steve 14.3 (11.5-14.5) % Plt Count 117 L (130-400) K/uL MPV 10.9 H (7.4-10.4) fL Immature Gran % (Auto) 0.4 % Neut % (Auto) 79.1 % Lymph % (Auto) 11.7 % [place] % (Auto) 6.5 % Eos % (Auto) 2.0 % Baso % (Auto) 0.3 % Neut # (Auto) 6.21 (1.4-6.5) K/uL Lymph # (Auto) 0.92 L (1.2-3.4) K/uL [place] # (Auto) 0.51 (0.11-0.59) K/uL Eos # (Auto) 0.16 (0-0.5) K/uL Baso # (Auto) 0.02 (0-0.2) K/uL Immature Gran # (Auto) 0.03 H (0.00-0.02) K/uL PT 11.8 (9.0-12.0) Seconds INR 1.2 H (0.9-1.1) Sodium 133 L (136-145) mmol/L Potassium 4.1 (3.5-5.1) mmol/L Chloride 100 (98-107) mmol/L Carbon Dioxide 26 (21-32) mmol/L Anion Gap 6.0 (3-11) BUN 76 H (7-18) mg/dl Creatinine 1.49 H (0.6-1.2) mg/dl Est Cr Clr Drug Dosing 22.0 ml/min Est GFR ( Amer) 36.5 ml/min Est GFR (Non-Af Amer) 31.5 ml/min BUN/Creatinine Ratio 51.1 H (10-20) Glucose 99 (70-99) mg/dl Calcium 9.6 (8.5-10.1) mg/dl Total Bilirubin 1.1 H (0.2-1) mg/dl AST 44 H (15-37) U/L ALT 22 (12-78) U/L Alkaline Phosphatase 81 (45-117) U/L Total Protein 8.8 H (6.4-8.2) gm/dl Albumin 3.8 (3.4-5.0) gm/dl Globulin 5.0 H (2.5-4.0) gm/dl Albumin/Globulin Ratio 0.8 L (0.9-2) Urine Color Urine Appearance (Clear) Urine pH (4.5-7.5) Ur Specific [place] (1.000-1.030) Urine Protein (Negative) Urine Glucose (UA) (Negative) Urine Ketones (Negative) Urine Blood (Negative) Urine Nitrite (Negative) Urine Bilirubin (Negative) Urine Urobilinogen (Negative) Ur Leukocyte Esterase (Negative) Urine WBC (Auto) (0-5) /hpf Urine RBC (Auto) (0-4) /hpf U Hyaline Cast (Auto) (0-5) /lpf U Epithel Cells (Auto) (0-5) /lpf Urine Bacteria (Auto) (Negative) Ur Renal Epithelial Cell 03/17/21 Range/Units 22:59 WBC (4.8-10.8) K/uL RBC (4.2-5.4) M/uL Hgb (12.0-16.0) g/dL Hct (37-47) % MCV (80-100) fL MCH (25-34) pg MCHC (32-36) g/dL RDW Std Deviation (36.4-46.3) fL RDW Coeff of Steve (11.5-14.5) % Plt Count (130-400) K/uL MPV (7.4-10.4) fL Immature Gran % (Auto) % Neut % (Auto) % Lymph % (Auto) % [place] % (Auto) % Eos % (Auto) % Baso % (Auto) % Neut # (Auto) (1.4-6.5) K/uL Lymph # (Auto) (1.2-3.4) K/uL [place] # (Auto) (0.11-0.59) K/uL Eos # (Auto) (0-0.5) K/uL Baso # (Auto) (0-0.2) K/uL Immature Gran # (Auto) (0.00-0.02) K/uL PT (9.0-12.0) Seconds INR (0.9-1.1) Sodium (136-145) mmol/L Potassium (3.5-5.1) mmol/L Chloride (98-107) mmol/L Carbon Dioxide (21-32) mmol/L Anion Gap (3-11) BUN (7-18) mg/dl Creatinine (0.6-1.2) mg/dl Est Cr Clr Drug Dosing ml/min Est GFR ( Amer) ml/min Est GFR (Non-Af Amer) ml/min BUN/Creatinine Ratio (10-20) Glucose (70-99) mg/dl Calcium (8.5-10.1) mg/dl Total Bilirubin (0.2-1) mg/dl AST (15-37) U/L ALT (12-78) U/L Alkaline Phosphatase (45-117) U/L Total Protein (6.4-8.2) gm/dl Albumin (3.4-5.0) gm/dl Globulin (2.5-4.0) gm/dl Albumin/Globulin Ratio (0.9-2) Urine Color Yellow Urine Appearance Clear (Clear) Urine pH 6.0 (4.5-7.5) Ur Specific [place] 1.010 (1.000-1.030) Urine Protein Trace H (Negative) Urine Glucose (UA) Negative (Negative) Urine Ketones Negative (Negative) Urine Blood 3+ H (Negative) Urine Nitrite Negative (Negative) Urine Bilirubin Negative (Negative) Urine Urobilinogen Negative (Negative) Ur Leukocyte Esterase 1+ H (Negative) Urine WBC (Auto) 10-30 H (0-5) /hpf Urine RBC (Auto) >30 H (0-4) /hpf U Hyaline Cast (Auto) 1-5 (0-5) /lpf U Epithel Cells (Auto) >30 H (0-5) /lpf Urine Bacteria (Auto) Negative (Negative) Ur Renal Epithelial Cell Not Reportable Administered Medications Hydromorphone HCl (Hydromorphone Inj 0.5 Mg/0.5 Ml Syr) 0.25 mg IV Q15M PRN PRN Reason: Pain Stop: 03/31/21 22:39 Last Admin: 03/17/21 23:32 Dose: 0.25 mg Documented by: [id number] Discontinued Medications Ceftriaxone Sodium (Rocephin) 1,000 mg in 50 mls @ 100 mls/hr IV NOW STA Stop: 03/18/21 00:40 Last Admin: 03/18/21 00:33 Dose: 100 mls/hr Documented by: [id number] Ondansetron HCl (Ondansetron Inj 2 Mg/Ml 2 Ml Vial) 4 mg IV NOW STA Stop: 03/17/21 22:41 Last Admin: 03/17/21 23:32 Dose: 4 mg Documented by: [id number] Discharge Plan Visit Data Chief Complaint: Fall Stated Complaint: FALL, BACK PAIN ED Provider: Ildefonso Ng Discharge Problem: Bradycardia, Acute UTI (urinary tract infection), T12 compression fracture, Fall Forms Stand Alone Forms: My [facility] Prescriptions Prescriptions: No Action metoprolol tartrate 50 mg tablet 50 mg PO BID Qty: 180 RF: 3 Eliquis 2.5 mg tablet 2.5 mg PO BID Qty: 180 RF: 3 hydrocodone bitartrate 30 mg tablet,oral only,ext.rel.24 hr 30 mg PO DAILY Qty: 30 RF: 0 oxycodone 5 mg tablet 5 - 10 mg PO Q8H PRN (Reason: Pain) Qty: 100 RF: 0 nitroglycerin 0.4 mg tablet, sublingual 0.4 mg SL UD PRN (Reason: Chest Pain) RF: 0 docusate sodium 100 mg capsule 100 mg PO DAILY PRN (Reason: Constipation) RF: 0 furosemide 40 mg tablet 40 mg PO BID RF: 0 spironolactone 25 mg tablet 12.5 mg PO DAILY RF: 0 multivitamin tablet 1 tab PO DAILY RF: 0 levothyroxine 112 mcg tablet 112 mcg PO DAILY RF: 0 lisinopril 5 mg tablet 5 mg PO DAILY RF: 0 aspirin [Aspirin Low Dose] 81 mg Tablet,Delayed Release (Dr/Ec) 81 mg PO DAILY RF: 0 diclofenac sodium 1 % Gel 4 g TOPICAL QID PRN (Reason: Pain) RF: 0 Referrals Referrals: Lorenza Armendariz CRNP [Primary Care Provider] -
[2021-03-18] MEDS ORDERED: cefTRIAXone SODIUM 1,000 MG/50 ML BAG IV STA (00:11)
--- NOTE | 2021-03-18 01:11 | History & Physical Report ---
Date of Service March 18, 2021 Assessment & Plan (1) Fall: Plan: Status post fall- Occurred as she was walking out of the shower Patient is unaware if she lost consciousness, but does not remember slipping and falling. Multiple potential causes: Dehydration associated acute kidney injury, bradycardia, atrial fibrillation, hot shower causing vasovagal syncope, UTI, others. (2) Bradycardia: Plan: Bradycardia/atrial fibrillation/CAD/hypertension/severe mitral insufficiency/severe tricuspid insufficiency- The patient will be admitted to telemetry for serial cardiac enzymes, serial EKG's, cardiac rhythm monitoring and a 2-D echocardiogram with Dopplers. Hold metoprolol tartrate 50 mg p.o. twice daily. Monitor to assess if bradycardia or atrial fibrillation or other arrhythmia contributed to her fall this evening Holding Eliquis and aspirin for now, due to paraspinal hemorrhage associated with acute T12 compression fracture (3) Atrial fibrillation: Plan: See above (4) Severe mitral insufficiency: Plan: See above (5) Severe tricuspid valve insufficiency: Plan: See above (6) T12 compression fracture: Plan: Acute T12 compression fracture/old L1 compression fracture- Continue patient's routine medications of hydrocodone bitartrate 30 mg extended release daily. Continue oxycodone 5 mg p.o., change from every 8 hours as needed to every 6 hours as needed moderate pain Dilaudid 0.25 mg IV every 3 hours as needed severe pain Patient has undergone pain injections in the past from [facility], and may require so again Due to associated paraspinal hemorrhage noted on CT, will hold Eliquis and aspirin (7) Acute kidney injury: Plan: Creatinine 1.49 upon admission, with baseline 0.86 Her daughter reports a recent increase in her furosemide dosing to try to control lower extremity edema. For now, hold furosemide 40 mg p.o. twice daily, spironolactone 12.5 mg p.o. daily and lisinopril 5 mg p.o. daily. Restart with adjusted dosing after improvement in kidney function. (8) Acute UTI (urinary tract infection): Plan: Follow urine culture and sensitivity Ceftriaxone 1 g IV daily (9) Hypothyroidism: Plan: Continue levothyroxine 112 mcg daily (10) Coronary artery disease: Plan: See above (11) Hypertension: Plan: See above (12) Lower back pain: Plan: See above History of Present Illness Chief Complaint: The patient presents to the emergency department with complaints of severe back pain that occurred after a fall as she was stepping out of the shower earlier this evening Primary Care Provider: ABIGAIL Ray The patient is an 85-year-old female with a past medical history including hyperglobulinemia, thrombocytopenia, peripheral edema, severe tricuspid valve insufficiency, severe mitral valve insufficiency, atrial fibrillation, history of [place], mild cognitive impairment, hypothyroidism, hyperlipidemia, cervical spine stenosis, CAD and chronic low back pain. Patient reports that she was stepping out of the shower earlier this evening, she ended up falling to the floor. She does not remember slipping on anything, and her daughter reports that when she looked at the site there was no sign of slippage. She denies loss of bowel or bladder control. She denies focal weakness in arms or legs. She does feel generally weak. She has had a intermittent problem with gross hematuria over the past few months, but was reluctant to get tested at her PCPs office. The patient is able to contribute to her HPI and review of systems, and her daughter supports her story. Allergies Allergy/AdvReac Type Severity Reaction Status Date / Time doxycycline AdvReac nauseated Verified 02/10/21 07:57 Home Medications Medication Instructions Recorded Confirmed Type nitroglycerin 0.4 mg sublingual 0.4 mg SL UD PRN tab 11/22/18 03/17/21 History tablet multivitamin 1 tab PO DAILY 12/17/18 03/17/21 History docusate sodium 100 mg capsule 100 mg PO DAILY PRN cap 06/04/19 03/17/21 History apixaban 2.5 mg tablet (Eliquis) 2.5 mg PO BID #180 tab 01/12/21 03/17/21 Rx metoprolol tartrate 50 mg tablet 50 mg PO BID #180 tab 01/12/21 03/17/21 Rx furosemide 40 mg tablet 40 mg PO BID tab 02/10/21 03/17/21 History spironolactone 25 mg tablet 12.5 mg PO DAILY tab 02/10/21 03/17/21 History hydrocodone bitartrate 30 mg 30 mg PO DAILY #30 tab 02/15/21 03/17/21 Rx tablet,crush resist,extended rel. 24hr oxycodone 5 mg tablet 5 - 10 mg PO Q8H PRN #100 tab 03/03/21 03/17/21 Rx aspirin 81 mg tablet,delayed 81 mg PO DAILY 03/17/21 03/17/21 History release (Aspirin Low Dose) diclofenac sodium 1 % topical gel 4 g TOPICAL QID PRN 03/17/21 03/17/21 History levothyroxine 112 mcg tablet 112 mcg PO DAILY 03/17/21 03/17/21 History lisinopril 5 mg tablet 5 mg PO DAILY 03/17/21 03/17/21 History Past Med/Surg History Medical History (Updated 03/18/21 @ 02:26 by Homero Ma MD) CAD (coronary artery disease) NSTEMI, s/p proximal LAD stent in 2010 Compression fracture of L1 lumbar vertebra Hx of myocardial infarction Pseudogout of right wrist Pseudogout of right wrist Severe aortic stenosis Surgical History (Updated 10/27/19 @ 13:24 by Sarah Saenz MA) H/O bilateral hip replacements H/O neck surgery History of cataract surgery Family History (Updated 02/10/21 @ 08:08 by Albina Marcial MA) Father Lung disease Sister Diabetes Breast cancer Other Heart disease Denies family history of Ovarian cancer Prostate cancer Coronary heart disease Colorectal cancer Cancer Social History (Updated 02/10/21 @ 08:08 by Albina Marcial MA) Smoking Status: Never smoker Second Hand Exposure: No; Hx Alcohol Use: No Hx Substance Use: No Preferred Language: Maltese Communication Ability: Effective Visual Impairment: No Limitations Hearing Ability: Normal Beliefs That Will Affect Care: None Current Living Situation: Alone current occupational status: retired Other Information That Helps Us Care for You: No Feels Safe at Home: Yes Childhood Exposure to Second-Hand Smoke: Yes caffeine: Yes Dental Care, Regularly: No Physical Activity Frequency: Does not Exercise Seatbelt Use: always Sunscreen Use: Yes Assistive Devices: Cane and Walker Review of Systems Review of Systems: The patient denies chest pain, palpitations, shortness of breath, dyspnea on exertion, cough, lower extremity swelling, sore throat, fevers, chills, sweats, nausea, vomiting, diarrhea , constipation, abdominal pain, pelvic pain, blood in stool, rash, abnormal bruising or bleeding, focal weakness, numbness or tingling in arms or legs, neck pain, or night sweats. The review of systems is otherwise negative other than for that already noted above, and at least 10 systems have been reviewed. Physical Exam Physical Exam: The patient is awake, alert and oriented 3, normocephalic and atraumatic, lying in bed and in no acute distress. HEENT--PERRL, EOMI, mucous membranes and oropharynx dry. Neck--supple. No JVD. No bruits. Thyroid normal, trachea midline, no adenopathy. Heart--normal S1 and S2. No murmurs, rubs or gallops. Lungs--clear bilaterally, no respiratory distress, no accessory muscle use. Abdomen--normal bowel sounds and soft. Nontender. Nondistended, no hernias or masses, no organomegaly. Extremities--no cyanosis or clubbing. No edema. Dermatologic--normal skin turgor, normal color, no abnormal lymph nodes, no rash. Neurologic--cranial nerves II through XII grossly intact. Rheumatologic--normal range of motion. Psychiatric--normal affect. Results & Data Results & Data ([facility]) Vital Signs (Past 12 Hours) Vital Signs Temp Pulse Resp BP Pulse Ox 03/18/21 00:06 62 23 113/69 95 03/17/21 21:34 98.1 F 43 L 16 120/63 98 Laboratory Results Laboratory Results WBC 7.85 K/uL (4.8-10.8) 03/17/21 22:48 RBC 4.28 M/uL (4.2-5.4) 03/17/21 22:48 Hgb 13.0 g/dL (12.0-16.0) 03/17/21 22:48 Hct 39.5 % (37-47) 03/17/21 22:48 MCV 92.3 fL (80-100) 03/17/21 22:48 MCH 30.4 pg (25-34) 03/17/21 22:48 MCHC 32.9 g/dL (32-36) 03/17/21 22:48 RDW Std Deviation 48.4 fL (36.4-46.3) H 03/17/21 22:48 RDW Coeff of Steve 14.3 % (11.5-14.5) 03/17/21 22:48 Plt Count 117 K/uL (130-400) L 03/17/21 22:48 MPV 10.9 fL (7.4-10.4) H 03/17/21 22:48 Immature Gran % (Auto) 0.4 % 03/17/21 22:48 Neut % (Auto) 79.1 % 03/17/21 22:48 Lymph % (Auto) 11.7 % 03/17/21 22:48 [place] % (Auto) 6.5 % 03/17/21 22:48 Eos % (Auto) 2.0 % 03/17/21 22:48 Baso % (Auto) 0.3 % 03/17/21 22:48 Neut # (Auto) 6.21 K/uL (1.4-6.5) 03/17/21 22:48 Lymph # (Auto) 0.92 K/uL (1.2-3.4) L 03/17/21 22:48 [place] # (Auto) 0.51 K/uL (0.11-0.59) 03/17/21 22:48 Eos # (Auto) 0.16 K/uL (0-0.5) 03/17/21 22:48 Baso # (Auto) 0.02 K/uL (0-0.2) 03/17/21 22:48 Immature Gran # (Auto) 0.03 K/uL (0.00-0.02) H 03/17/21 22:48 PT 11.8 Seconds (9.0-12.0) 03/17/21 22:48 INR 1.2 (0.9-1.1) H 03/17/21 22:48 Sodium 133 mmol/L (136-145) L 03/17/21 22:48 Potassium 4.1 mmol/L (3.5-5.1) 03/17/21 22:48 Chloride 100 mmol/L (98-107) 03/17/21 22:48 Carbon Dioxide 26 mmol/L (21-32) 03/17/21 22:48 Anion Gap 6.0 (3-11) 03/17/21 22:48 BUN 76 mg/dl (7-18) H 03/17/21 22:48 Creatinine 1.49 mg/dl (0.6-1.2) H 03/17/21 22:48 Est Cr Clr Drug Dosing 22.0 ml/min 03/17/21 22:48 Est GFR ( Amer) 36.5 ml/min 03/17/21 22:48 Est GFR (Non-Af Amer) 31.5 ml/min 03/17/21 22:48 BUN/Creatinine Ratio 51.1 (10-20) H 03/17/21 22:48 Glucose 99 mg/dl (70-99) 03/17/21 22:48 Calcium 9.6 mg/dl (8.5-10.1) 03/17/21 22:48 Total Bilirubin 1.1 mg/dl (0.2-1) H 03/17/21 22:48 AST 44 U/L (15-37) H 03/17/21 22:48 ALT 22 U/L (12-78) 03/17/21 22:48 Alkaline Phosphatase 81 U/L (45-117) 03/17/21 22:48 Total Protein 8.8 gm/dl (6.4-8.2) H 03/17/21 22:48 Albumin 3.8 gm/dl (3.4-5.0) 03/17/21 22:48 Globulin 5.0 gm/dl (2.5-4.0) H 03/17/21 22:48 Albumin/Globulin Ratio 0.8 (0.9-2) L 03/17/21 22:48 Urine Color Yellow 03/17/21 22:59 Urine Appearance Clear (Clear) 03/17/21 22:59 Urine pH 6.0 (4.5-7.5) 03/17/21 22:59 Ur Specific [place] 1.010 (1.000-1.030) 03/17/21 22:59 Urine Protein Trace (Negative) H 03/17/21 22:59 Urine Glucose (UA) Negative (Negative) 03/17/21 22:59 Urine Ketones Negative (Negative) 03/17/21 22:59 Urine Blood 3+ (Negative) H 03/17/21 22:59 Urine Nitrite Negative (Negative) 03/17/21 22:59 Urine Bilirubin Negative (Negative) 03/17/21 22:59 Urine Urobilinogen Negative (Negative) 03/17/21 22:59 Ur Leukocyte Esterase 1+ (Negative) H 03/17/21 22:59 Urine WBC (Auto) 10-30 /hpf (0-5) H 03/17/21 22:59 Urine RBC (Auto) >30 /hpf (0-4) H 03/17/21 22:59 U Hyaline Cast (Auto) 1-5 /lpf (0-5) 03/17/21 22:59 U Epithel Cells (Auto) >30 /lpf (0-5) H 03/17/21 22:59 Urine Bacteria (Auto) Negative (Negative) 03/17/21 22:59 Ur Renal Epithelial Cell Not Reportable 03/17/21 22:59 COVID-19 Eval Order Covid19 at [facility] 03/18/21 00:35 SARS-CoV-2 (PCR) NEGATIVE (Negative) 03/18/21 00:35 Diagnostic Findings [facility] Patient: JIMMIE WALTER (Female) : 33 Status: ER Date: 03/17/21 23:28 Room #: History: fell and hit head Slices: 58 Priors: Tech: Luis A Najera @ [phone] Exams: CT HEAD Contrast: Accession Numbers: [id number] Referring Physician: REFERRED SELF Preliminary Findings Only See Final Report For Complete Findings CT HEAD: No ICH, mass effect or edema. No skull fracture. Craniocervical fusion. Radiologist: Liliya Nolan M.D. Study ready at 23:30 and initial results transmitted at 23:31 *This report constitutes a preliminary interpretation only. Non-acute findings felt to be unrelated to the clinical presentation may not be discussed in this report. The study will be interpreted and a final report will be generated by the local Radiologist the following shift. To reach the hospital radiology department call [phone]. If a discrepancy is found between the preliminary and final interpretations of this study, please notify us via our Client Portal at [email or web address] can also fax this report with a description of the discrepancy, or include the final report, to our daytime fax number [phone].If faxing, please indicate the severity of discrepancy using one of the following categories: [ ] 1 - Agree/Informational [ ] 2 - Unlikely to Affect Management [ ] 3 - Possible Eventual Change of Management [ ] 4 - Probable Immediate Change of Management For all other patient related information, please fax us at [phone]. [id number] [facility] Patient: JIMMIE WALTER (Female) : 33 Status: ER Date: 03/17/21 23:31 Room #: History: FELL AND HURT LOWER BACK Slices: 877 Priors: Tech: Luis A Najera @ [phone] Exams: CT L SPINE Contrast: Accession Numbers: [id number] Referring Physician: REFERRED SELF Preliminary Findings Only See Final Report For Complete Findings CT L SPINE: Acute fracture the T12 vertebral body. No retropulsion. Associated paraspinal hemorrhage/edema. Compression deformity of the L1 vertebral body, uncertain chronicity. Degenerative changes, levoscoliosis and osteopenia. Large cardiac silhouette. Right hip prosthesis. Severe atrophy of the left kidney. Hypertrophy of the right kidney and right renal scar. Colonic diverticula. Radiologist: Liliya Nolan M.D. Study ready at 23:43 and initial results transmitted at 00:00 *This report constitutes a preliminary interpretation only. Non-acute findings felt to be unrelated to the clinical presentation may not be discussed in this report. The study will be interpreted and a final report will be generated by the local Radiologist the following shift. To reach the hospital radiology department call [phone]. If a discrepancy is found between the preliminary and final interpretations of this study, please notify us via our Client Portal at [email or web address] can also fax this report with a description of the discrepancy, or include the final report, to our daytime fax number [phone].If faxing, please indicate the severity of discrepancy using one of the following categories: [ ] 1 - Agree/Informational [ ] 2 - Unlikely to Affect Management [ ] 3 - Possible Eventual Change of Management [ ] 4 - Probable Immediate Change of Management For all other patient related information, please fax us at [phone]. [id number] ECG Additional Comments: JIMMIE WALTER ID:[id number] 17-MAR-2021 21:50:17 [facility]- EDSTAT ROUTINE RETRIEVAL Atrial fibrillation with slow ventricular response Right superior axis deviation Anterior infarct (cited on or before 17-MAR-2021) Abnormal ECG When compared with ECG of 21-APR-2019 11:54, Vent. rate has decreased BY 28 BPM QRS axis Shifted left Nonspecific T wave abnormality, improved in Inferior leads Nonspecific T wave abnormality no longer evident in Lateral leads 25mm/s 10mm/mV 150Hz 9.0.9 12SL 241 BLESSING: 15 Unconfirmed Vent. rate 54 BPM AL interval * ms QRS duration 90 ms QT/QTc 434/411 ms P-R-T axes * 236 50 1935 (85 yr) Female 1in 0lb Room:A11 Loc:15 Design Lead:Victoriano Sen T Code Status & VTE Plan Code Status Full code VTE Prophylaxis Plan VTE Prophylaxis will be ordered: Yes PG Care Time/CCT Total # of Minutes Spent Total Time Spent with Patient: Total time spent is greater than 50% in coordination of care (as documented) at patient's floor/unit and/or counseling patient: Coding Level of Care Code 14171 Initial Inpt Care Lvl 3 Diagnoses Bradycardia R00.1 Atrial fibrillation I48.91 Severe mitral insufficiency I34.0 Severe tricuspid valve insufficiency I07.1 T12 compression fracture S22.080A Acute UTI (urinary tract infection) N39.0 Fall W19.XXXA Hypothyroidism E03.9 Hypothyroidism type: unspecified Coronary artery disease I25.118 Coronary Disease-Associated Artery/Lesion type: [place] artery [place] vs. transplanted heart: [place] heart Associated angina: with stable angina Hypertension I10 Hypertension type: essential hypertension Lower back pain M54.5 Acute kidney injury N17.9 (1) Hypothyroidism Hypothyroidism type: unspecified Qualified Code(s): E03.9 - Hypothyroidism, unspecified (2) Coronary artery disease Coronary Disease-Associated Artery/Lesion type: [place] artery [place] vs. transplanted heart: [place] heart Associated angina: with stable angina Qual ified Code(s): I25.118 - Atherosclerotic heart disease of [place] coronary artery with other forms of angina pectoris (3) Hypertension Hypertension type: essential hypertension Qualified Code(s): I10 - Essential (primary) hypertension
[2021-03-18] MEDS ORDERED: SODIUM CHLORIDE 0.9% 1000ML 1,000 ML IV SCH (02:55)
[2021-03-18] MEDS ORDERED: NITROGLYCERIN SL 0.4 MG/TAB TAB SL PRN (02:55)
[2021-03-18] MEDS ORDERED: DOCUSATE SODIUM 100 MG CAP PO PRN (02:55)
[2021-03-18] MEDS ORDERED: ONDANSETRON INJ 2 MG/ML 2 ML VIAL IV PRN (02:55)
[2021-03-18] MEDS ORDERED: ACETAMINOPHEN 325 MG TAB PO PRN (02:55)
[2021-03-18] MEDS: HYDROmorphone INJ 0.5 MG/0.5 ML SYR IV PRN ×4 (03:21→13:46)
[2021-03-18] MEDS: oxyCODONE HCL IR 5 MG TAB (IMMEDIATE RELEASE) PO PRN ×3 (04:13→17:17)
[2021-03-18] MEDS: LEVOTHYROXINE SODIUM 112 MCG TABLET PO SCH (05:55)
--- NOTE | 2021-03-18 06:57 | CT Scan Report ---
HEAD CT NONCONTRAST CT DOSE: 537.48 mGy.cm HISTORY: fall TECHNIQUE: Multiaxial CT images of the head were performed without the use of intravenous contrast. A utomated exposure control was utilized for this study. A dose lowering technique was utilized adheri ng to the principles of ALARA. Comparison: Head CT 05/25/2012. Findings: The paranasal sinuses and mastoid air cells are clear. The calvarium and skull base are int act. There is no mass, hematoma, midline shift, acute infarct. White matter hypodensity is nonspecifi c but suggestive of microvascular ischemic change. The ventricles and sulci demonstrate mild age-rela artur involutional changes. Craniocervical fusion hardware is noted. Impression: No acute intracranial abnormality. ACT 112: Negative or not required by law. Electronically signed by: Jevon Kenny M.D. 03/18/2021 6:56 AM
--- NOTE | 2021-03-18 08:19 | CT Scan Report ---
LUMBAR SPINE CT CT DOSE: 368.42 mGy.cm HISTORY: Fall. Low Back Pain TECHNIQUE: Multiaxial CT images of the lumbar spine were performed and reformatted in the sagittal an d coronal plane without the use of contrast. A dose lowering technique was utilized adhering to the principles of ALARA. COMPARISON: Lumbar spine CT 06/11/2016. FINDINGS: Moderate levoscoliosis within the lumbar spine. Moderate to severe degenerative changes thr oughout the majority of the lumbar spine. This is similar to the prior study. There is a moderate inf erior endplate compression fracture at L1 demonstrating up to 50% loss of height and 2 mm of retropul sukh of the posterior inferior corner. This results in [id number] central canal narrowing at th is level. Cholecystectomy age indeterminate but likely chronic. There is an acute superior endplate c ompression fracture at T12 with minimal loss of height. No associated retropulsion. There is mild par avertebral edema at the T12 level due to the acute fracture. Markedly atrophic left kidney. Compensat ory hypertrophy of the right kidney with associated scarring. Colonic diverticulosis. IMPRESSION: 1. An acute mild superior endplate compression fracture at T12 demonstrating minimal loss of height. 2. There is a moderate inferior endplate compression deformity at L1. This is technically age indeter minate but likely old. 3. Moderate levoscoliosis and degenerative changes. ACT 112: Negative or not required by law. Electronically signed by: Jevon Kenny M.D. 03/18/2021 8:18 AM
[2021-03-18] MEDS: MULTIVITAMIN TAB PO SCH (08:27)
[2021-03-18] MEDS: ACETAMINOPHEN 500 MG TAB PO SCH ×2 (12:40→20:34)
[2021-03-18] MEDS: HYDROCORTISONE 1% OINT 30 GM TUBE EXT SCH ×2 (13:31→20:34)
[2021-03-18 15:25] LABS: Hematocrit (blood only) 34.1 % (37-47); Hemoglobin 11.1 g/dL (12.0-16.0); Mean Corpuscular Hemoglobin 29.9 pg (25-34); Mean Corpuscular Hgb Conc 32.6 g/dL (32-36); Mean Corpuscular Volume 91.9 fL (80-100); RDW Coefficient of Variation 14.3 % (11.5-14.5); RDW Standard Deviation 48.4 fL (36.4-46.3); Red Blood Count 3.71 M/uL (4.2-5.4)
[2021-03-18 15:45] LABS: BUN Creatinine Ratio 41.6 (10-20); Creatinine Clr Calc Pharmacy 21.3 ml/min; Est GFR (African American) 35.3 ml/min; Est GFR (Non-African American) 30.5 ml/min; Potassium 4.7 mmol/L (3.5-5.1)
[2021-03-18 15:47] LABS: Mean Platelet Volume 10.6 fL (7.4-10.4); Platelet Count 95 K/uL (130-400)
[2021-03-18 15:48] LABS: Platelet Estimate Decreased (Normal)
[2021-03-18 15:54] LABS: Troponin I 1.04 ng/ml (0-0.045)
--- NOTE | 2021-03-18 18:48 | History & Physical Bridge Note ---
Date of Service March 18, 2021 History & Physical Bridge Note I have examined the patient, reviewed the History & Physical and in the interval since the performance of the History & Physical I have noted the following changes of clinical significance: no changes noted
--- NOTE | 2021-03-18 19:11 | Hospitalist Progress Note ---
Date of Service March 18, 2021 Assessment & Plan (1) Fall: Plan: - Unknown cause; unsure if she had any LOC but does not remember falling but she crawled from the bathroom to her bed - Possible causes - dehydration given diuretics vs A Fib with bradycardia vs hypotension vs UTI vs vasovagal vs mechanical - Remains in A Fib on monitor with rates in the 50-60s - PT/OT evaluations (2) Bradycardia: Plan: - Had HR in 40s on arrival to ER likely related to metoprolol; has maintained in 50-60s on monitor - Has CHF related to severe valvular disease - Currently holding beta blockers and monitor - monitor for rebound tachycardia -- Discussed with cardiology to reduce Metoprolol to 50 mg AM and 25 mg PM - currently on hold at this time (3) Coronary artery disease: Plan: - Also with heart failure associated with severe valvular disease - Echo - pending - Troponin at 1.040 - patient did have a fall with unknown time down and appears has chronic elevated troponins since 2009 likely in the setting of longstanding cardiac disease - No chest pain or shortness of breath; no ischemic changes on EKG - continue to monitor (4) Atrial fibrillation: Plan: - Appears chronic; on Eliquis (currently on hold due to T12 fx) - Cardiology consulted - discussed with team; studies ordered for AM (5) T12 compression fracture: Plan: - Acute T12 compression fracture/old L1 compression fracture - Continue patient's routine medications of hydrocodone bitartrate 30 mg extended release daily -- Per PCP note it appears insurance may no longer be covering this for outpatient use - Continue oxycodone 5-10 mg daily - has been on chronic opiates so pain control may be difficult without oversedation - Dilaudid 0.25 mg IV every 3 hours as needed severe pain - Tylenol NADEGE - Stat CT read questioned possible hemorrhage around T12; official read says edema. Will trend Hgb as there was a decrease but likely dilutional but will want to get AC restarted given ongoing A Fib but need to confirm no bleed - May benefit from back brace - PT/OT evaluations Patient has undergone pain injections in the past from [facility], and may require so again (6) Acute kidney injury: Plan: - Creatinine 1.53 with baseline around 0.8 - Given fall maybe some mild rhabdo vs from diuretic use - CK in AM and gentle hydration; recheck BMP in AM -- Her daughter reports a recent increase in her furosemide dosing to try to control lower extremity edema. For now, hold furosemide 40 mg p.o. twice daily, spironolactone 12.5 mg p.o. daily and lisinopril 5 mg p.o. daily. Restart with adjusted dosing after improvement in kidney function. (7) Acute UTI (urinary tract infection): Plan: - Follow urine culture and sensitivity - Ceftriaxone 1 g IV daily (8) Hypothyroidism: Plan: - TSH WNL - Continue levothyroxine 112 mcg daily (9) Hypertension: Plan: - Currently low normal BP seems asymptomatic - Suspect the need for medication adjustments possibly due to her weight loss (10) Blepharitis: Plan: - Possibly some mild blepharitis around R eye; not warm to touch or tender - Dry and flaky and patient reports itchy - sclera is WNL; no drainage - Daughter states a few days prior sclera were a bit red and watery - possibly had a viral conjunctivitis - Will try hydrocortizone around the skin of the eye; does not present as a periorbital cellulitis (11) Unintentional weight loss: Plan: - BMI 18 - Has lost about 12 lbs in last 4 months - possibly some water weight but also reporting early satiety; has been using Boost and will order that here - Discussed with daughter who states she notices her mother can be a bit obsessive about her weight and wasnt sure if that could be contributing; given chronic illness and age would suspect a normal level of loss of appetite; has refused EGD/[place] per PCP notes which given age and co-morbidities intervention could be risky but does not appear patient wants to do that Plan: - Obtain pain control - Medication adjustments which will be discussed with cardiology - PT/OT Admission and Anticipated Discharge Date Admission Date: March 18, 2021 Subjective Reports having a lot of back pain. She has chronic pain with difficulty finding control. NADEGE Tylenol and increase Oxycodone with IV options for breakthrough. She verbalizes no other complaints. BP has been soft and holding BP medications. HR has been acceptable. Troponin is elevated however reviewed labs and these have been elevated since 2009. She does not complain of chest pain or shortness of breath Review of Systems Review of Systems: REVIEW OF SYSTEMS General/Constitutional: Denies fever/chills ENT: Denies visual changes, nasal drainage, hearing loss, sore throat, trouble swallowing Cardiovascular: Denies chest pain, palpitations, edema Respiratory: Denies cough, sputum, SOB, wheezing, orthopnea GI: Denies nausea, vomiting, abdominal pain, constipation, diarrhea, melena/hematochezia : + intermittent hematuria a while back (resolved); Denies dysuria, frequency Musculoskeletal: + back pain Neurologic: Denies dizziness/lightheadedness Hematologic/Lymphatic: Denies bleeding/clotting abnormalities Skin: Denies rash, itch, new skin changes, easy bruising Physical Exam Physical Exam: PHYSICAL EXAM General Appearance: Frail elderly woman in NAD but uncomfortable who is A&O x 3 HEENT: Head is normocephalic/atraumatic; EOMI; PERRLA; Hearing grossly intact; Mucous membranes moist; Pharynx negative for exudate/lesions; dry, scaling rash around R eye without edema, drainage, or warmth, sclera without erythema Neck: Supple; Trachea midline; Neg JVD; Neg lymphadenopathy Heart: + irregularly irregular Lungs: CTA in all lung merrill bilaterally; Respirations unlabored; Neg accessory muscle use Abdomen: Soft, non-tender, non-distended; Positive BS x 4 quadrants; Neg organomegaly Extremities: Capillary refill < 2 seconds; Neg cyanosis or edema Neurological: Speech clear; Gross motor/sensory function intact; Neg focal neurologic deficits Psychiatric: Appropriate mood/affect Skin: Normal Color; Warm/Dry Results & Data Results & Data ([facility]) Vital Signs (Past 12 Hours) Vital Signs Temp Pulse Pulse Resp BP Pulse Ox 03/18/21 15:03 37.0 C 58 L 17 93/53 L 93 03/18/21 15:00 51 L 03/18/21 10:49 36.6 C 56 L 17 92/56 L 96 03/18/21 08:56 61 03/18/21 07:03 36.6 C 70 17 103/65 97 PG Care Time/CCT Total # of Minutes Spent Total Time Spent with Patient: Total time spent is greater than 50% in coordination of care (as documented) at patient's floor/unit and/or counseling patient: Coding Level of Care Code None Diagnoses Fall W19.XXXA Bradycardia R00.1 Atrial fibrillation I48.91 T12 compression fracture S22.080A Acute kidney injury N17.9 Acute UTI (urinary tract infection) N39.0 Hypothyroidism E03.9 Hypothyroidism type: unspecified Coronary artery disease I25.118 Coronary Disease-Associated Artery/Lesion type: [place] artery [place] vs. transplanted heart: [place] heart Associated angina: with stable angina Hypertension I10 Hypertension type: essential hypertension Blepharitis H01.009 Unintentional weight loss R63.4 (1) Hypothyroidism Hypothyroidism type: unspecified Qualified Code(s): E03.9 - Hypothyroidism, unspecified (2) Coronary artery disease Coronary Disease-Associated Artery/Lesion type: [place] artery [place] vs. transplanted heart: [place] heart Associated angina: with stable angina Qualified Code(s): I25.118 - Atherosclerotic heart disease of [place] coronary artery with other forms of angina pectoris (3) Hypertension Hypertension type: essential hypertension Qualified Code(s): I10 - Essential (primary) hypertension
[2021-03-18 19:20] LABS: Hematocrit (blood only) 33.7 % (37-47); Hemoglobin 10.7 g/dL (12.0-16.0)
--- NOTE | 2021-03-18 20:08 | Communication Note ---
Date of Service: March 18, 2021 Review of patient chart. Last BP was 79/47. Recheck was 99/61 and had to use a smaller cuff. Uncertain if a large cuff was used on initial read. Patient is alert and oriented x 3. Hgb is slightly reduced from earlier today however suspect this is dilutional but will monitor. Patient was assessed at bedside.
[2021-03-18] MEDS: LIDOCAINE 5% 1 PATCH TD SCH (21:18)
[2021-03-19] MEDS: HYDROmorphone INJ 0.5 MG/0.5 ML SYR IV PRN ×3 (02:01→19:28)
[2021-03-19] MEDS: LEVOTHYROXINE SODIUM 112 MCG TABLET PO SCH (06:05)
--- NOTE | 2021-03-19 06:29 | Electrocardiogram Report ---
Test Reason : Blood Pressure : / mmHG Vent. Rate : 054 BPM Atrial Rate : 250 BPM P-R Int : 000 ms QRS Dur : 090 ms QT Int : 434 ms P-R-T Axes : 000 236 050 degrees QTc Int : 411 ms Atrial fibrillation with slow ventricular response Right superior axis deviation Poor R wave progression, consider anterior OK vs. lead placement vs. LVH Abnormal ECG When compared with ECG of 21-APR-2019 11:54, Vent. rate has decreased BY 28 BPM QRS axis Shifted left Nonspecific T wave abnormality, improved in Inferior leads Nonspecific T wave abnormality no longer evident in Lateral leads Confirmed by Robe Wei ([id number]) on 03/19/2021 6:28:39 AM Referred By: REFERRED SELF Confirmed By:Robe Wei
[2021-03-19 06:31] LABS: Hematocrit (blood only) 34.4 % (37-47); Hemoglobin 11.3 g/dL (12.0-16.0); Mean Corpuscular Hemoglobin 30.5 pg (25-34); Mean Corpuscular Hgb Conc 32.8 g/dL (32-36); Mean Corpuscular Volume 92.7 fL (80-100); RDW Coefficient of Variation 14.5 % (11.5-14.5); RDW Standard Deviation 49.3 fL (36.4-46.3); Red Blood Count 3.71 M/uL (4.2-5.4); White Blood Count 5.97 K/uL (4.8-10.8)
[2021-03-19 07:01] LABS: Albumin Level 2.9 gm/dl (3.4-5.0); Calcium 9.3 mg/dl (8.5-10.1); Creatinine Clr Calc Pharmacy 27.7 ml/min; Est GFR (African American) 42.6 ml/min; Est GFR (Non-African American) 36.8 ml/min; Magnesium 2.3 mg/dl (1.8-2.4); Potassium 4.6 mmol/L (3.5-5.1)
[2021-03-19 07:06] LABS: Mean Platelet Volume 10.6 fL (7.4-10.4); Platelet Count 86 K/uL (130-400)
[2021-03-19 07:07] LABS: Basophils # (auto) 0.05 K/uL (0-0.2); Basophils % (auto) 0.8 %; Eosinophils # (auto) 0.63 K/uL (0-0.5); Eosinophils % (auto) 10.6 %; Immature Granulocytes # (auto) 0.02 K/uL (0.00-0.02); Immature Granulocytes % (auto) 0.3 %; Lymphocytes # (auto) 0.98 K/uL (1.2-3.4); Lymphocytes % (auto) 16.4 %; Monocytes # (auto) 0.65 K/uL (0.11-0.59); Monocytes % (auto) 10.9 %; Neutrophils # (auto) 3.64 K/uL (1.4-6.5); Platelet Estimate Decreased (Normal)
[2021-03-19 07:15] LABS: Albumin Globulin Ratio 0.7 (0.9-2); Globulin 4.2 gm/dl (2.5-4.0); Total Protein 7.1 gm/dl (6.4-8.2)
[2021-03-19] MEDS: MULTIVITAMIN TAB PO SCH (08:35)
[2021-03-19] MEDS: ACETAMINOPHEN 500 MG TAB PO SCH ×3 (08:35→21:05)
[2021-03-19] MEDS: HYDROCORTISONE 1% OINT 30 GM TUBE EXT SCH ×2 (08:35→21:04)
[2021-03-19] MEDS: cefTRIAXone SODIUM 1,000 MG in DEXTROSE 5% 50 ML IV SCH (08:35)
--- NOTE | 2021-03-19 12:09 | Electrocardiogram Report ---
Test Reason : Blood Pressure : / mmHG Vent. Rate : 053 BPM Atrial Rate : 075 BPM P-R Int : 000 ms QRS Dur : 084 ms QT Int : 428 ms P-R-T Axes : 000 224 039 degrees QTc Int : 401 ms Atrial fibrillation with slow ventricular response Right superior axis deviation Anterior infarct (cited on or before 18-MAR-2021) Abnormal ECG When compared with ECG of 17-MAR-2021 21:50, T wave inversion now evident in Anterior leads Confirmed by Tao Pride ([id number]) on 03/19/2021 12:09:38 PM Referred By: REFERRED SELF Confirmed By:Sesar Pride
--- NOTE | 2021-03-19 12:17 | Electrocardiogram Report ---
Test Reason : Blood Pressure : / mmHG Vent. Rate : 065 BPM Atrial Rate : 300 BPM P-R Int : 000 ms QRS Dur : 080 ms QT Int : 460 ms P-R-T Axes : 000 211 -81 degrees QTc Int : 478 ms Poor data quality, interpretation may be adversely affected Atrial fibrillation Right superior axis deviation Low voltage QRS Cannot rule out Anterior infarct (cited on or before 18-MAR-2021) Abnormal ECG When compared with ECG of 18-MAR-2021 18:33, (unconfirmed) Serial changes of Anterior infarct Present Confirmed by Tao Pride ([id number] on 03/19/2021 12:16:24 PM Referred By: REFERRED SELF Confirmed By:Sesar Pride
--- NOTE | 2021-03-19 12:25 | Cardiology Consultation ---
Date of Consultation March 19, 2021 Assessment & Plan (1) Elevated troponin: (2) Severe mitral insufficiency: (3) Atrial fibrillation: (4) Severe tricuspid valve insufficiency: (5) Bradycardia: (6) T12 compression fracture: Patient is an 85-year-old female with complex cardiac history as outlined. Includes chronic atrial fibrillation, chronic diastolic heart failure secondary to severe mitral tricuspid insufficiency, pulmonary hypertension, stable chronic ischemic heart disease. Patient admitted after suffering an acute fall. No overt syncope observed but patient bradycardic on initial presentation in setting of acute pain. 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 Echocardiogram reveals no wall motion abnormalities with preserved LV systolic function Telemetry reveals no further bradycardia arrhythmias with persistent atrial fibrillation Recommendations: We will continue to treat medically. Hold beta-valentino, diuretics currently given relatively low heart rate and blood pressure. We will likely reinstitute lower dose beta-valentino prior to discharge. Continue to hold anticoagulation additional 1 to 2 days given possible surrounding area of hematoma lumbar spine. Maintain telemetry as gradual increase in activity gone We will follow as clinical course progresses History of Present Illness Reason for Consultation: Fall possible syncope, elevated troponin Requesting Physician: Dr. Castillo Attending Physician: Champ Castillo, DO History of Present Illness Patient is an 85-year-old female whose ongoing cardiac issues include 1. Chronic diastolic heart failure secondary to valvular disease, severe mitral and tricuspid insufficiency, with severe pulmonary hypertension 2. Chronic persistent atrial fibrillation on chronic anticoagulation with apixaban (reduced dose) 3. Chronic stable ischemic heart disease status post left anterior descending coronary stent 2010, repeat cardiac catheterization May 2018 with mild coronary atherosclerosis only, patent stent 4. Degenerative joint disease 5. Hypertension Patient is referred now after hospitalization following a fall. Patient notes having showered late at night and on leaving shower suffered a fall to the floor. She notes no overt syncope. Was not aware of any tachypalpitations chest pains or shortness of breath. Following the fall she was able to crawl to a phone and summoned help. She notes no recent fevers chills or sweats. No recent change in medications other than increase in diuretic in October 2020. No bleeding difficulties. No recent lightheadedness or dizziness except on rare occasion. Appetite has been generally fair. No difficulty taking medications. Is usually active to a low level about her home On ER presentation patient relatively bradycardic and hypotensive. Diuretics and beta-blockers have been held. CT of lumbar spine demonstrates acute compression fracture with surrounding edema possible hematoma Troponin on check later in admission demonstrated mild elevation troponin levels. Patient without chest pains currently. She does complain of diffuse pain secondary to fall back pain focal tenderness. No chest pain or shortness of breath Allergies Allergy/AdvReac Type Severity Reaction Status Date / Time doxycycline AdvReac nauseated Verified 02/10/21 07:57 Home Medications Medication Instructions Recorded Confirmed Type nitroglycerin 0.4 mg sublingual 0.4 mg SL UD PRN tab 11/22/18 03/17/21 History tablet multivitamin 1 tab PO DAILY 12/17/18 03/17/21 History docusate sodium 100 mg capsule 100 mg PO DAILY PRN cap 06/04/19 03/17/21 History apixaban 2.5 mg tablet (Eliquis) 2.5 mg PO BID #180 tab 01/12/21 03/17/21 Rx metoprolol tartrate 50 mg tablet 50 mg PO BID #180 tab 01/12/21 03/17/21 Rx furosemide 40 mg tablet 40 mg PO BID tab 02/10/21 03/17/21 History spironolactone 25 mg tablet 12.5 mg PO DAILY tab 02/10/21 03/17/21 History hydrocodone bitartrate 30 mg 30 mg PO DAILY #30 tab 02/15/21 03/17/21 Rx tablet,crush resist,extended rel. 24hr oxycodone 5 mg tablet 5 - 10 mg PO Q8H PRN #100 tab 03/03/21 03/17/21 Rx aspirin 81 mg tablet,delayed 81 mg PO DAILY 03/17/21 03/17/21 History release (Aspirin Low Dose) diclofenac sodium 1 % topical gel 4 g TOPICAL QID PRN 03/17/21 03/17/21 History levothyroxine 112 mcg tablet 112 mcg PO DAILY 03/17/21 03/17/21 History lisinopril 5 mg tablet 5 mg PO DAILY 03/17/21 03/17/21 History Patient History Medical History CAD (coronary artery disease) NSTEMI, s/p proximal LAD stent in 2010 Compression fracture of L1 lumbar vertebra Hx of myocardial infarction Pseudogout of right wrist Pseudogout of right wrist Severe aortic stenosis Surgical History H/O bilateral hip replacements H/O neck surgery History of cataract surgery Family History Father Lung disease Sister Diabetes Breast cancer Other Heart disease Denies family history of Ovarian cancer Prostate cancer Coronary heart disease Colorectal cancer Cancer Social History Smoking Status: Never smoker Second Hand Exposure: No; Hx Alcohol Use: No Hx Substance Use: No Preferred Language: German Communication Ability: Effective Visual Impairment: No Limitations Hearing Ability: Normal Beliefs That Will Affect Care: None Current Living Situation: Alone current occupational status: retired How many Children do You have: 3 Feels Safe at Home: Yes Childhood Exposure to Second-Hand Smoke: Yes caffeine: Yes Dental Care, Regularly: No Physical Activity Frequency: Does not Exercise Seatbelt Use: always Sunscreen Use: Yes Assistive Devices: Cane and Walker Review of Systems Review of Systems: All systems reviewed & are unremarkable except as noted in HPI & below Physical Exam Constitutional: + thin (Age-appropriate female with mild diffuse discomfort but no focal distress) Eyes: PERRL, conjunctivae normal, anicteric sclerae ENMT: external ear and nose normal, oropharynx normal Neck: trachea midline, no thyromegaly Respiratory: normal respiratory effort, lungs clear to auscultation Cardiovascular: Rate/Rhythm: + irregularly irregular Heart Sounds: + murmur (2/6 systolic murmur at apex); no gallop Vessels: no JVD Extremities: no edema Gastrointestinal (Abdomen): normal bowel sounds, soft, nontender, no hepatosplenomegaly Musculoskeletal: no cyanosis or clubbing, extremities motor strength 5/5 Neurologic: PERRL, EOMI, accommodation nl, no face palsy, no dysarthria Psychiatric: A+Ox3, euthymic affect Results & Data ([facility]) Vital Signs (Past 12 Hours) Vital Signs Temp Pulse Pulse Resp BP Pulse Ox Pulse Ox 03/19/21 11:46 36.7 C 76 16 98/56 L 97 03/19/21 10:37 69 03/19/21 07:30 36.8 C 61 18 118/73 96 03/19/21 03:49 36.5 C 55 L 20 109/64 98 03/19/21 02:55 92 Laboratory Results Laboratory Results - last 24 hr 03/18/21 03/18/21 03/18/21 15:08 15:08 19:07 WBC 6.20 RBC 3.71 L Hgb 11.1 L 10.7 L Hct 34.1 L 33.7 L MCV 91.9 MCH 29.9 MCHC 32.6 RDW Std Deviation 48.4 H RDW Coeff of Steve 14.3 Plt Count 95 L MPV 10.6 H Immature Gran % (Auto) Neut % (Auto) Lymph % (Auto) [place] % (Auto) Eos % (Auto) Baso % (Auto) Neut # (Auto) Lymph # (Auto) [place] # (Auto) Eos # (Auto) Baso # (Auto) Immature Gran # (Auto) Platelet Estimate Decreased L Sodium 136 Potassium 4.7 Chloride 106 Carbon Dioxide 25 Anion Gap 5.0 BUN 64 H Creatinine 1.53 H Est Cr Clr Drug Dosing 21.3 Est GFR ( Amer) 35.3 Est GFR (Non-Af Amer) 30.5 BUN/Creatinine Ratio 41.6 H Glucose 118 H Calcium 9.0 Magnesium Total Bilirubin AST ALT Alkaline Phosphatase Total Creatine Kinase Troponin I 1.040 H* Total Protein Albumin Globulin Albumin/Globulin Ratio 03/19/21 03/19/21 03/19/21 06:00 06:00 06:00 WBC 5.97 RBC 3.71 L Hgb 11.3 L Hct 34.4 L MCV 92.7 MCH 30.5 MCHC 32.8 RDW Std Deviation 49.3 H RDW Coeff of Steve 14.5 Plt Count 86 L MPV 10.6 H Immature Gran % (Auto) 0.3 Neut % (Auto) 61.0 Lymph % (Auto) 16.4 [place] % (Auto) 10.9 Eos % (Auto) 10.6 Baso % (Auto) 0.8 Neut # (Auto) 3.64 Lymph # (Auto) 0.98 L [place] # (Auto) 0.65 H Eos # (Auto) 0.63 H Baso # (Auto) 0.05 Immature Gran # (Auto) 0.02 Platelet Estimate Decreased L Sodium 138 Potassium 4.6 Chloride 109 H Carbon Dioxide 25 Anion Gap 4.0 BUN 60 H Creatinine 1.31 H Est Cr Clr Drug Dosing 27.7 Est GFR ( Amer) 42.6 Est GFR (Non-Af Amer) 36.8 BUN/Creatinine Ratio 46.0 H Glucose 90 Calcium 9.3 Magnesium 2.3 Total Bilirubin 1.0 AST 29 ALT 13 Alkaline Phosphatase 67 Total Creatine Kinase 98 Troponin I 1.430 H* Total Protein 7.1 Albumin 2.9 L Globulin 4.2 H Albumin/Globulin Ratio 0.7 L
--- NOTE | 2021-03-19 14:03 | Hospitalist Progress Note ---
Date of Service March 19, 2021 Assessment & Plan (1) Fall: Plan: - Unknown cause; unsure if she had any LOC but does not remember falling but she crawled from the bathroom to her bed - Possible causes - dehydration given diuretics vs A Fib with bradycardia vs hypotension vs UTI vs vasovagal vs mechanical - Remains in A Fib on monitor with rates in the 50-70s - PT/OT evaluations (2) Bradycardia: Plan: - Had HR in 40s on arrival to ER likely related to metoprolol; has maintained in 50-70s on monitor - Has CHF related to severe valvular disease - Currently holding beta blockers and monitor - monitor for rebound tachycardia -- Discussed with cardiology with plan to reduce beta blockers - currently on hold at this time (3) Coronary artery disease: Plan: - Also with heart failure associated with severe valvular disease - Echo - No evidence of wall motion abnormalities in setting of troponins - Troponin at 1.040 and repeat slightly higher- patient did have a fall with unknown time down and appears has chronic elevated troponins since 2009 likely in the setting of longstanding cardiac disease - No chest pain or shortness of breath (4) Atrial fibrillation: Plan: - Appears chronic; on Eliquis (currently on hold due to T12 fx) -- Plan to reinstitute Eliquis in 1-2 days - Cardiology following (5) T12 compression fracture: Plan: - Acute T12 compression fracture/old L1 compression fracture - Continue oxycodone 5-10 mg daily - has been on chronic opiates so pain control may be difficult without oversedation -- Was on Oxycontin however per PCP note it appears insurance may no longer be covering this for outpatient use and was stopped - Dilaudid 0.5 mg IV every 3 hours as needed severe pain - Tylenol NADEGE - Add Gabapentin 100 mg BID - Stat CT read questioned possible hemorrhage around T12; official read says edema -Trend Hgb as there was a decrease - but increased today to 11.3 -- likely dilutional but will want to get AC restarted given ongoing A Fib but need to confirm no bleed - Will add Colace BID and may need to increase bowel regimen to prevent constipation - May benefit from back brace - orthotics consult placed - PT/OT evaluations Patient has undergone pain injections in the past from [facility], and may require so again or need pain management (6) Acute kidney injury: Plan: - Creatinine 1.53 initially and improving down to 1.31 with baseline around 0.8 -- Possibly related to diuretic/ACEI use - CK this AM was normal -- Her daughter reports a recent increase in her furosemide dosing to try to control lower extremity edema. - For now, hold furosemide 40 mg p.o. twice daily, spironolactone 12.5 mg p.o. daily and lisinopril 5 mg p.o. daily. Restart with adjusted dosing after improvement in kidney function. (7) Acute UTI (urinary tract infection): Plan: - Follow urine culture and sensitivity - so far pinpoint growth - Ceftriaxone 1 g IV daily for now likely can be stopped soon (8) Hypothyroidism: Plan: - TSH WNL - Continue levothyroxine 112 mcg daily (9) Hypertension: Plan: - Currently low normal BP seems asymptomatic - Suspect the need for medication adjustments possibly due to her weight loss (10) Blepharitis: Plan: - Possibly some mild blepharitis around R eye; not warm to touch or tender - Dry and flaky and patient reports itchy - sclera is WNL; no drainage - Daughter states a few days prior sclera were a bit red and watery - possibly had a viral conjunctivitis - Will try hydrocortizone around the skin of the eye; does not present as a periorbital cellulitis (11) Unintentional weight loss: Plan: - BMI 18 - Has lost about 17 lbs in last 6 months - possibly some water weight but also reporting early satiety; has been using Boost at home and will continue - Discussed with daughter who states she notices her mother can be a bit obsessive about her weight and wasnt sure if that could be contributing; given chronic illness and age would suspect a normal level of loss of appetite; has refused EGD/[place] per PCP notes which given age and co-morbidities intervention could be risky but does not appear patient wants to do that Plan: - Obtain pain control - Medication adjustments which will be discussed with cardiology - PT/OT - will likely need rehab Admission and Anticipated Discharge Date Admission Date: March 18, 2021 Subjective Still having significant back pain today. Not worse then yesterday but not improved. Pt is not opiate niave and has been on chronic opiates. She did eat some of her lunch but reports a limited appetite. BP remains low normal. No chest pain or SOB. Remains in A Fib on monitor with rates in the 50-70s. Review of Systems Review of Systems: REVIEW OF SYSTEMS General/Constitutional: Denies fever/chills ENT: Denies nasal drainage, sore throat, trouble swallowing Cardiovascular: Denies chest pain, palpitations, edema Respiratory: Denies cough, sputum, SOB, wheezing, orthopnea GI: Denies nausea, vomiting, abdominal pain, constipation, diarrhea : Denies dysuria Musculoskeletal: + back pain (unchanged from yesterday) Neurologic: Denies dizziness/lightheadedness Hematologic/Lymphatic: Denies bleeding/clotting abnormalities Skin: Denies rash, itch, new skin changes, easy bruising Physical Exam Physical Exam: PHYSICAL EXAM General Appearance: Frail elderly woman in NAD but uncomfortable who is A&O x 3 HEENT: Head is normocephalic/atraumatic; Hearing grossly intact; Mucous membranes moist; dry, scaling rash around R eye without edema, drainage, or warmth, sclera without erythema (looks improved today with hydrocortisone Neck: Supple; Trachea midline; Neg JVD; Neg lymphadenopathy Heart: + irregularly irregular Lungs: CTA in all lung merrill bilaterally; Respirations unlabored; Neg accessory muscle use Abdomen: Soft, non-tender, non-distended; Positive BS x 4 quadrants; Neg organomegaly Extremities: Capillary refill < 2 seconds; Neg cyanosis or edema Spine: No visible ecchymosis or edema at level of T12 Neurological: Speech clear; Gross motor/sensory function intact; Neg focal neurologic deficits Psychiatric: Appropriate mood/affect Skin: Normal Color; Warm/Dry Results & Data Results & Data ([facility]) Vital Signs (Past 12 Hours) Vital Signs Temp Pulse Pulse Resp BP Pulse Ox Pulse Ox 03/19/21 11:46 36.7 C 76 16 98/56 L 97 03/19/21 10:37 69 03/19/21 07:30 36.8 C 61 18 118/73 96 03/19/21 03:49 36.5 C 55 L 20 109/64 98 03/19/21 02:55 92 PG Care Time/CCT Total # of Minutes Spent Total Time Spent with Patient: Total time spent is greater than 50% in coordination of care (as documented) at patient's floor/unit and/or counseling patient: Coding Level of Care Code 31902 Subseq Hosp Care Lvl 3 Diagnoses Fall W19.XXXA Bradycardia R00.1 Coronary artery disease I25.118 Associated angina: with stable angina Coronary Disease-Associated Artery/Lesion type: [place] artery [place] vs. transplanted heart: [place] heart Atrial fibrillation I48.91 T12 compression fracture S22.080A Acute kidney injury N17.9 Acute UTI (urinary tract infection) N39.0 Hypothyroidism E03.9 Hypothyroidism type: unspecified Hypertension I10 Hypertension type: essential hypertension Blepharitis H01.009 Unintentional weight loss R63.4 (1) Coronary artery disease Associated angina: with stable angina Coronary Disease-Associated Artery/Lesion type: [place] artery [place] vs. transplanted heart: [place] heart Qualified Code(s): I25.118 - Atherosclerotic heart disease of [place] coronary artery with other forms of angina pectoris (2) Hypothyroidism Hypothyroidism type: unspecified Qualified Code(s): E03.9 - Hypothyroidism, unspecified (3) Hypertension Hypertension type: essential hypertension Qualified Code(s): I10 - Essential (primary) hypertension
[2021-03-19] MEDS: oxyCODONE HCL IR 5 MG TAB (IMMEDIATE RELEASE) PO PRN (14:16)
[2021-03-19] MEDS: LIDOCAINE 5% 1 PATCH TD SCH (21:04)
[2021-03-19] MEDS: DOCUSATE SODIUM 100 MG CAP PO SCH (21:04)
[2021-03-19] MEDS: GABAPENTIN 100 MG CAP PO SCH (21:05)
[2021-03-20] MEDS: HYDROmorphone INJ 0.5 MG/0.5 ML SYR IV PRN (03:00)
[2021-03-20] MEDS: LEVOTHYROXINE SODIUM 112 MCG TABLET PO SCH (06:19)
[2021-03-20 06:23] LABS: Hematocrit (blood only) 37.3 % (37-47); Mean Corpuscular Hemoglobin 30.4 pg (25-34); Mean Corpuscular Hgb Conc 32.2 g/dL (32-36); Mean Corpuscular Volume 94.4 fL (80-100); RDW Coefficient of Variation 14.4 % (11.5-14.5); RDW Standard Deviation 49.7 fL (36.4-46.3); Red Blood Count 3.95 M/uL (4.2-5.4); White Blood Count 6.64 K/uL (4.8-10.8)
[2021-03-20 06:32] LABS: Mean Platelet Volume 11.2 fL (7.4-10.4); Platelet Count 98 K/uL (130-400)
[2021-03-20 06:55] LABS: BUN Creatinine Ratio 45.4 (10-20); Calcium 8.9 mg/dl (8.5-10.1); Creatinine Clr Calc Pharmacy 35.8 ml/min; Est GFR (African American) 61.3 ml/min; Est GFR (Non-African American) 52.9 ml/min; Magnesium 2.2 mg/dl (1.8-2.4); Potassium 4.4 mmol/L (3.5-5.1)
[2021-03-20 06:58] LABS: Albumin Globulin Ratio 0.7 (0.9-2); Bilirubin,Total 0.9 mg/dl (0.2-1); Globulin 4.3 gm/dl (2.5-4.0); Total Protein 7.3 gm/dl (6.4-8.2)
[2021-03-20 07:37] LABS: Basophils # (auto) 0.04 K/uL (0-0.2); Basophils % (auto) 0.6 %; Eosinophils % (auto) 10.5 %; Lymphocytes # (auto) 1.11 K/uL (1.2-3.4); Lymphocytes % (auto) 16.7 %; Monocytes # (auto) 0.77 K/uL (0.11-0.59); Monocytes % (auto) 11.6 %; Neutrophils # (auto) 4.02 K/uL (1.4-6.5); Neutrophils % (auto) 60.6 %
[2021-03-20] MEDS: ACETAMINOPHEN 500 MG TAB PO SCH ×3 (08:18→20:14)
[2021-03-20] MEDS: oxyCODONE HCL IR 5 MG TAB (IMMEDIATE RELEASE) PO PRN ×3 (08:18→23:46)
[2021-03-20] MEDS: cefTRIAXone SODIUM 1,000 MG in DEXTROSE 5% 50 ML IV SCH (08:19)
[2021-03-20] MEDS: GABAPENTIN 100 MG CAP PO SCH ×2 (08:20→20:14)
[2021-03-20] MEDS: MULTIVITAMIN TAB PO SCH (08:20)
[2021-03-20] MEDS: DOCUSATE SODIUM 100 MG CAP PO SCH ×2 (08:21→20:14)
[2021-03-20] MEDS: HYDROCORTISONE 1% OINT 30 GM TUBE EXT SCH ×2 (08:21→20:14)
--- NOTE | 2021-03-20 11:51 | Cardiology Progress Note ---
Date of Service March 20, 2021 Assessment & Plan (1) Elevated troponin: (2) Severe mitral insufficiency: (3) Atrial fibrillation: (4) Severe tricuspid valve insufficiency: (5) Bradycardia: (6) T12 compression fracture: Plan: Patient is an 85-year-old female with complex cardiac history as outlined. Includes chronic atrial fibrillation, chronic diastolic heart failure secondary to severe mitral tricuspid insufficiency, pulmonary hypertension, stable chronic ischemic heart disease. Patient admitted after suffering an acute fall. No overt syncope observed but patient bradycardic on initial presentation in setting of acute pain. 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 Echocardiogram reveals no wall motion abnormalities with preserved LV systolic function Telemetry reveals no further bradycardia arrhythmias with persistent atrial fibrillation Recommendations: We will continue to treat medically. Atrial fibrillation controlled without medical th erapies reflecting intrinsic conduction system disease. We will not reinstitute beta-valentino at this time. Continue to hold diuretics in the absence of good p.o. intake May need further assessment of back pain Admission and Anticipated Discharge Date Admission Date: March 18, 2021 Subjective Patient was seen and examined, chart, medications, telemetry reviewed. Patient complains of severe back pain and gait instability. No cardiac complaints. No chest pain shortness of breath Telemetry reveals persistent atrial fibrillation though with controlled ventricular response rates Review of Systems Review of Systems: All systems reviewed & are unremarkable except as noted in Subjective Physical Exam Constitutional: + thin (Age-appropriate female with mild diffuse discomfort but no focal distress) Complaining of back pain Eyes: PERRL, conjunctivae normal, anicteric sclerae ENMT: external ear and nose normal, oropharynx normal Neck: trachea midline, no thyromegaly Respiratory: normal respiratory effort, lungs clear to auscultation Cardiovascular: Rate/Rhythm: + irregularly irregular Heart Sounds: + murmur (2/6 systolic murmur at apex); no gallop Vessels: no JVD Extremities: no edema Gastrointestinal (Abdomen): normal bowel sounds, soft, nontender, no hepatosplenomegaly Musculoskeletal: no cyanosis or clubbing, extremities motor strength 5/5 Neurologic: PERRL, EOMI, accommodation nl, no face palsy, no dysarthria Psychiatric: A+Ox3, euthymic affect Results & Data ([facility]) Vital Signs (Past 12 Hours) Vital Signs Temp Pulse Pulse Resp BP BP Pulse Ox 03/20/21 07:40 36.7 C 60 16 129/75 99 03/20/21 04:40 36.5 C 59 L 16 100/59 L 18 L 03/20/21 00:40 63 Laboratory Results Laboratory Results - last 24 hr 03/20/21 03/20/21 06:01 06:01 WBC 6.64 RBC 3.95 L Hgb 12.0 Hct 37.3 MCV 94.4 MCH 30.4 MCHC 32.2 RDW Std Deviation 49.7 H RDW Coeff of Steve 14.4 Plt Count 98 L MPV 11.2 H Immature Gran % (Auto) 0.0 Neut % (Auto) 60.6 Lymph % (Auto) 16.7 [place] % (Auto) 11.6 Eos % (Auto) 10.5 Baso % (Auto) 0.6 Neut # (Auto) 4.02 Lymph # (Auto) 1.11 L [place] # (Auto) 0.77 H Eos # (Auto) 0.70 H Baso # (Auto) 0.04 Immature Gran # (Auto) 0.00 Sodium 138 Potassium 4.4 Chloride 109 H Carbon Dioxide 25 Anion Gap 4.0 BUN 44 H Creatinine 0.97 D Est Cr Clr Drug Dosing 35.8 Est GFR ( Amer) 61.3 Est GFR (Non-Af Amer) 52.9 BUN/Creatinine Ratio 45.4 H Glucose 93 Calcium 8.9 Magnesium 2.2 Total Bilirubin 0.9 AST 30 ALT 14 Alkaline Phosphatase 72 Total Protein 7.3 Albumin 3.0 L Globulin 4.3 H Albumin/Globulin Ratio 0.7 L
[2021-03-20] MEDS ORDERED: oxyCODONE HCL 10 MG TABCR (OxyCONTIN) PO STA (13:29)
--- NOTE | 2021-03-20 17:45 | Hospitalist Progress Note ---
Date of Service March 20, 2021 Assessment & Plan (1) Fall: Plan: - Unknown cause; unsure if she had any LOC but does not remember falling but she crawled from the bathroom to her bed - Possible causes - dehydration given diuretics vs A Fib with bradycardia vs hypotension vs UTI vs vasovagal vs mechanical -- Blood pressure now improved with holding diuretics and anti-hypertensives - PT/OT evaluations (2) Bradycardia: Plan: - Had HR in 40s on arrival to ER likely related to metoprolol; has maintained in 50-70s on monitor - Has CHF related to severe valvular disease - volume status appropriate at this time - Currently holding beta blockers and monitor -- Discussed with cardiology with plan to reduce beta blockers - currently on hold at this time (3) Coronary artery disease: Plan: - Also with heart failure associated with severe valvular disease - currently compensated - Echo - No evidence of wall motion abnormalities in setting of troponins - Troponin at 1.040 and repeat slightly higher- patient did have a fall with unknown time down and appears has chronic elevated troponins since 2009 likely in the setting of longstanding cardiac disease - No chest pain or shortness of breath (4) Atrial fibrillation: Plan: - Appears chronic; on Eliquis (currently on hold due to T12 fx) -- Plan to reinstitute Eliquis in 1-2 days; may hold one more day until input from ortho spine - Cardiology following - appreciate consult -- Not instituting beta blockers at this time; holding diuretics (5) T12 compression fracture: Plan: - Acute T12 compression fracture/old L1 compression fracture - suspect due to osteoporosis and trauma from fall -- Reviewed old imaging from 2018 that shows the L1 fracture went from 20% to 30% compared to CT from 2016 -- Daughter states patient did have fall last year as well - even though imaging suggest this is old maybe the 50% and retropulsion is newer given the T12 fracture? - Continue oxycodone 5-10 mg daily - has been on chronic opiates so pain control may be difficult; not opiate naive -- Got clarification from daughter - patient was on Oxycontin 30 mg BID and this no longer is covered by insurance and they sent in for Hydrocodone however this has not been picked up yet as patient wasn't needing it (also only using Oxycontin once daily and not consistently); we do not carry hydrocodone started Oxycontin to try to get better coverage - given acute issue may be able to see if this will be covered again - can discuss with case management - Start Oxycontin 10 mg BID NADEGE - likely can be increased as she is not opiate naive; Dilaudid 0.5 mg IV every 3 hours as needed severe pain - Tylenol NADEGE - Added Gabapentin 100 mg BID - Stat CT read questioned possible hemorrhage around T12; official read says edema -Trend Hgb as there was a decrease - but increased today to 12 -- likely was dilutional but will want to get AC restarted given ongoing A Fib but need to confirm no bleed - likely resume after input from spine - Will add Colace BID and may need to increase bowel regimen to prevent constipation - May benefit from back brace - orthotics consult placed - PT/OT evaluations - Will consult ortho spine - uncertain if she would be a good candidate for surgical intervention Patient has undergone pain injections in the past from [facility], and may require so again or need pain management given pain. Daughter states patient has dealt with chronic pain due to lumbar stenosis and has a significant curvature and she would have difficulty getting her to take pain medication prior to this even though she was having pain (6) Acute kidney injury: Plan: - Creatinine 1.53 initially and resolved to baseline around 0.8 -- Possibly related to diuretic/ACEI use - CK this AM was normal -- Her daughter reports a recent increase in her furosemide dosing to try to control lower extremity edema. - For now, hold furosemide 40 mg p.o. twice daily, spironolactone 12.5 mg p.o. daily and lisinopril 5 mg p.o. daily. Restart with adjusted dosing after improvement in kidney function and will discuss with cardiology. (7) Acute UTI (urinary tract infection): Plan: - Follow urine culture and sensitivity - so far pinpoint growth - Ceftriaxone 1 g IV daily maybe cover x 1 more day and can stop (8) Hypothyroidism: Plan: - TSH WNL - Continue levothyroxine 112 mcg daily (9) Hypertension: Plan: - BP has improved since admission - holding anti-hypertensives - Suspect the need for medication adjustments possibly due to her weight loss (10) Blepharitis: Plan: - Possibly some mild blepharitis around R eye vs a dermatitis; not warm to touch or tender - has improved - Dry and flaky and patient reports itchy - sclera is WNL; no drainage - Daughter states a few days prior sclera were a bit red and watery - possibly had a viral conjunctivitis - Will try hydrocortizone around the skin of the eye; does not present as a periorbital cellulitis - likely can discontinue after 3-5 days of use (11) Unintentional weight loss: Plan: - BMI 18 - Has lost about 17 lbs in last 6 months - possibly some water weight but also reporting early satiety; has been using Boost at home and will continue - Discussed with daughter who states she notices her mother can be a bit obsessive about her weight and wasnt sure if that could be contributing; given chronic illness and age would suspect a normal level of loss of appetite; has refused EGD/[place] per PCP notes which given age and co-morbidities intervention could be risky but does not appear patient wants to do that Plan: - Obtain pain control - encouraged patient to ask for medication when pain is worsening as she really hasn't gotten much and also discussed with nursing -- May need to consider pain management given her chronic issues with pain -- May need to see if Oxycontin can be covered by insurance again given acute issue vs finding an alternative for control - Medication adjustments which will be discussed with cardiology - PT/OT - will likely need rehab - Updated Chloe (daughter) over phone on 20 March Admission and Anticipated Discharge Date Admission Date: March 18, 2021 Subjective Pt reports pain is doing better when she doesn't move however very painful with all movements. Not complaining of any radiation of pain down her legs right now. All located to the back. She does look more comfortable this afternoon but having difficulty moving. She continues with her limited appetite. Verbalizes no other complaints. Review of Systems Review of Systems: REVIEW OF SYSTEMS General/Constitutional: Denies fever/chills ENT: Denies nasal drainage, sore throat, trouble swallowing Cardiovascular: Denies chest pain, palpitations, edema Respiratory: Denies cough, sputum, SOB, wheezing, orthopnea GI: Denies nausea, vomiting, abdominal pain, constipation, diarrhea : Denies dysuria Musculoskeletal: + back pain with movements; Denies radicular pain currently Neurologic: Denies dizziness/lightheadedness Hematologic/Lymphatic: Denies bleeding/clotting abnormalities Skin: Denies rash, itch, new skin changes, easy bruising Physical Exam Physical Exam: PHYSICAL EXAM General Appearance: Frail elderly woman in NAD but uncomfortable who is A&O x 3 HEENT: Head is normocephalic/atraumatic; Hearing grossly intact Neck: Supple; Trachea midline; Neg JVD Heart: + irregularly irregular Lungs: CTA in all lung merrill bilaterally; Respirations unlabored; Neg accessory muscle use Abdomen: Soft, non-tender, non-distended; Positive BS x 4 quadrants Extremities: Capillary refill < 2 seconds; Neg cyanosis or edema Spine: No visible ecchymosis or edema at level of T12 Neurological: Speech clear; Gross motor/sensory function intact; Neg focal neurologic deficits Psychiatric: Appropriate mood/affect Skin: Normal Color; Warm/Dry Results & Data Results & Data ([facility]) Vital Signs (Past 12 Hours) Vital Signs Temp Pulse Resp BP BP Pulse Ox 03/20/21 14:40 36.8 C 68 16 124/73 99 03/20/21 12:03 36.4 C L 69 16 117/74 97 03/20/21 07:40 36.7 C 60 16 129/75 99 PG Care Time/CCT Total # of Minutes Spent Total Time Spent with Patient: Total time spent is greater than 50% in coordination of care (as documented) at patient's floor/unit and/or counseling patient: Coding Level of Care Code 21834 Subseq Hosp Care Lvl 3 Diagnoses Fall W19.XXXA Bradycardia R00.1 Coronary artery disease I25.118 Coronary Disease-Associated Artery/Lesion type: [place] artery [place] vs. transplanted heart: [place] heart Associated angina: with stable angina Atrial fibrillation I48.91 T12 compression fracture S22.080A Acute kidney injury N17.9 Acute UTI (urinary tract infection) N39.0 Hypothyroidism E03.9 Hypothyroidism type: unspecified Hypertension I10 Hypertension type: essential hypertension Blepharitis H01.009 Unintentional weight loss R63.4 (1) Coronary artery disease Coronary Disease-Associated Artery/Lesion type: [place] artery [place] vs. transplanted heart: [place] heart Associated angina: with stable angina Qualified Code(s): I25.118 - Atherosclerotic heart disease of [place] coronary artery with other forms of angina pectoris (2) Hypothyroidism Hypothyroidism type: unspecified Qualified Code(s): E03.9 - Hypothyroidism, unspecified (3) Hypertension Hypertension type: essential hypertension Qualified Code(s): I10 - Essential (primary) hypertension
[2021-03-20] MEDS: LIDOCAINE 5% 1 PATCH TD SCH (20:15)
[2021-03-21 06:07] LABS: Hematocrit (blood only) 36.1 % (37-47); Hemoglobin 11.7 g/dL (12.0-16.0); Mean Corpuscular Hgb Conc 32.4 g/dL (32-36); Mean Corpuscular Volume 92.6 fL (80-100); RDW Coefficient of Variation 14.3 % (11.5-14.5); RDW Standard Deviation 48.2 fL (36.4-46.3); White Blood Count 5.86 K/uL (4.8-10.8)
[2021-03-21 06:14] LABS: Mean Platelet Volume 10.5 fL (7.4-10.4); Platelet Count 95 K/uL (130-400)
[2021-03-21] MEDS: LEVOTHYROXINE SODIUM 112 MCG TABLET PO SCH (06:15)
[2021-03-21] MEDS: oxyCODONE HCL IR 5 MG TAB (IMMEDIATE RELEASE) PO PRN ×2 (06:15→19:21)
[2021-03-21 06:35] LABS: BUN Creatinine Ratio 37.9 (10-20); Calcium 8.8 mg/dl (8.5-10.1); Creatinine Clr Calc Pharmacy 34.7 ml/min; Est GFR (African American) 59.1 ml/min; Potassium 4.4 mmol/L (3.5-5.1)
[2021-03-21] MEDS: cefTRIAXone SODIUM 1,000 MG in DEXTROSE 5% 50 ML IV SCH (08:18)
[2021-03-21] MEDS: ACETAMINOPHEN 500 MG TAB PO SCH ×3 (08:18→20:21)
[2021-03-21] MEDS: DOCUSATE SODIUM 100 MG CAP PO SCH ×2 (08:18→20:21)
[2021-03-21] MEDS: MULTIVITAMIN TAB PO SCH (08:18)
[2021-03-21] MEDS: GABAPENTIN 100 MG CAP PO SCH ×2 (08:18→20:21)
[2021-03-21] MEDS: HYDROCORTISONE 1% OINT 30 GM TUBE EXT SCH (08:18)
--- NOTE | 2021-03-21 08:58 | Cardiology Progress Note ---
Date of Service March 21, 2021 Assessment & Plan (1) Elevated troponin: (2) Severe mitral insufficiency: (3) Atrial fibrillation: (4) Severe tricuspid valve insufficiency: (5) Bradycardia: (6) T12 compression fracture: Plan: Patient is an 85-year-old female with complex cardiac history as outlined. Includes chronic atrial fibrillation, chronic diastolic heart failure secondary to severe mitral tricuspid insufficiency, pulmonary hypertension, stable chronic ischemic heart disease. Patient admitted after suffering an acute fall. No overt syncope observed but patient bradycardic on initial presentation in setting of acute pain. 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 Echocardiogram reveals no wall motion abnormalities with preserved LV systolic function Telemetry reveals no further bradycardia arrhythmias with persistent atrial fibrillation Recommendations: We will continue to treat medically. Atrial fibrillation controlled without medical th erapies reflecting intrinsic conduction system disease. We will not reinstitute beta-valentino at this time. Continue to hold diuretics in the absence of good p.o. intake no signs of edema or volume overload Would resume anticoagulation once ambulation stability confirmed Admission and Anticipated Discharge Date Admission Date: March 18, 2021 Subjective Patient was seen and examined, chart, medications, telemetry reviewed. No acute complaints but awakened from sleep this morning. Back pain better overnight. Hurts with any movement however No shortness of breath or chest pain Heart rate in the 60s and 70s, no peripheral edema Physical Exam Constitutional: + thin (Age-appropriate female with mild diffuse discomfort but no focal distress) Eyes: PERRL, conjunctivae normal, anicteric sclerae ENMT: external ear and nose normal, oropharynx normal Neck: trachea midline, no thyromegaly Respiratory: normal respiratory effort, lungs clear to auscultation Cardiovascular: Rate/Rhythm: + irregularly irregular Heart Sounds: + murmur (2/6 systolic murmur at apex); no gallop Vessels: no JVD Extremities: no edema Gastrointestinal (Abdomen): normal bowel sounds, soft, nontender, no hepatosplenomegaly Musculoskeletal: no cyanosis or clubbing, extremities motor strength 5/5 Neurologic: PERRL, EOMI, accommodation nl, no face palsy, no dysarthria Psychiatric: A+Ox3, euthymic affect Results & Data ([facility]) Vital Signs (Past 12 Hours) Vital Signs Temp Pulse Resp BP Pulse Ox 03/21/21 07:46 36.6 C 66 18 110/64 97 03/20/21 23:24 36.6 C 82 16 115/67 97 Laboratory Results Laboratory Results - last 24 hr 03/21/21 03/21/21 05:33 05:33 WBC 5.86 RBC 3.90 L Hgb 11.7 L Hct 36.1 L MCV 92.6 MCH 30.0 MCHC 32.4 RDW Std Deviation 48.2 H RDW Coeff of Steve 14.3 Plt Count 95 L MPV 10.5 H Sodium 137 Potassium 4.4 Chloride 109 H Carbon Dioxide 23 Anion Gap 5.0 BUN 38 H Creatinine 1.00 Est Cr Clr Drug Dosing 34.7 Est GFR ( Amer) 59.1 Est GFR (Non-Af Amer) 51.0 BUN/Creatinine Ratio 37.9 H Glucose 95 Calcium 8.8 Magnesium 2.0
[2021-03-21] MEDS ORDERED: oxyCODONE HCL 10 MG TABCR (OxyCONTIN) PO SCH (09:00)
--- NOTE | 2021-03-21 09:18 | Hospitalist Progress Note ---
Date of Service March 21, 2021 Assessment & Plan (1) Fall: Plan: likely due to hypotension/bradycardia from medication, initially low blood pressures on admission -- Blood pressure now improved with holding diuretics and anti-hypertensives, including meds for afib cardiology recommends to continue to avoid beta blockers - PT/OT evaluations (2) Bradycardia: Plan: - Had HR in 40s on arrival to ER likely related to metoprolol; has maintained in 50-70s on monitor - Has chronic HFrEF related to severe mitral regurgitation - volume status appropriate at this time - Cardiology recommends stopping beta blockers consider continuing anticoagulation (3) Coronary artery disease: Plan: - Echo - No evidence of wall motion abnormalities in setting of troponins 1.0- 1.4 - Has chronic elevated troponins since 2009 likely in the setting of longstanding cardiac disease - No anginal symptoms (4) Atrial fibrillation: Plan: - Appears chronic; on Eliquis (currently on hold due to T12 fx) -- Plan to reinstitute Eliquis - Cardiology following - appreciate consult -- Not instituting beta blockers at this time; holding diuretics (5) T12 compression fracture: Plan: - Acute T12 compression fracture/old L1 compression fracture - suspect due to osteoporosis and trauma from fall there is some concern regarding oxycodone use, will stop oxycontin as pt states it does not work -oxycodone 5 mg prn, Dilaudid 0.5 mg IV every 3 hours as needed severe pain - Tylenol NADEGE Gabapentin 100 mg BID, celebrex, miacalcin, lidoderm - Stat CT read questioned possible hemorrhage around T12; official read says edema - Will add Colace BID and may need to increase bowel regimen to prevent constipation - May benefit from back brace - orthotics consult placed - PT/OT evaluations Patient has undergone pain injections in the past from [facility], and may require so again or need pain management given pain. Daughter states patient has dealt with chronic pain due to lumbar stenosis and has a significant curvature and she would have difficulty getting her to take pain medication prior to this even though she was having pain (6) Acute kidney injury: Plan: - Creatinine 1.53 initially and resolved to baseline around 0.8 -- Her daughter reports a recent increase in her furosemide dosing to try to control lower extremity edema. -continue to hold furosemide 40 mg p.o. twice daily, spironolactone 12.5 mg p.o. daily and lisinopril 5 mg p.o. daily. (7) Acute UTI (urinary tract infection): Plan: - Follow urine culture and sensitivity -likely contaminated specimen - Ceftriaxone 1 g IV daily maybe cover x 1 more day and can stop (8) Hypothyroidism: Plan: - TSH WNL - Continue levothyroxine 112 mcg daily (9) Hypertension: Plan: - BP has improved since admission - holding anti-hypertensives - Suspect the need for medication adjustments possibly due to her weight loss (10) Blepharitis: Plan: resolved (11) Unintentional weight loss: Plan: - BMI 18 - Has lost about 17 lbs in last 6 months - possibly some water weight but also reporting early satiety; has been using Boost at home and will continue -under weight Plan: - Obtain pain control - - PT/OT - will likely need rehab Admission and Anticipated Discharge Date Admission Date: March 18, 2021 Subjective this pt is doing well however still with poor overall pain control will continue with medical management and eye toward rehab Review of Systems Review of Systems: Moderate distress with movement and fatigue no headache, no visual changes no speech or swallowing issues no chest pain, pressure or palpitations no shortness of breath at rest likely from pulmonary hypertension, no cough or wheezes no abdominal pain, nausea or vomiting, diarrhea or constipation no dysuria, hematuria or frequency no focal joint pain or swelling Focal back pain without radiation no bruising, bleeding or rashes no focal signs of weakness or numbness or altered sensation no complaints of anxiety or depression.. Physical Exam Physical Exam: The patient appeared painful to move, deconditioned Vital signs as documented. Head exam is normocephalic atraumatic Neck is without JVD, thyromegaly, or carotid bruits. Lungs are clear to auscultation, no focal loss of breath sounds Cardiac exam, Rhythm is regular.. No murmurs, rubs or gallops. Abdominal exam reveals normal bowel sounds, soft non tender, no masses Extremities are nonedematous and both pedal pulses are present Neurologic exam is alert and oriented, no focal loss of strength or sensation Skin is without bruises or rashes Psychologically is without concerns for anxiety or depression Results & Data Results & Data ([facility]) Vital Signs (Past 12 Hours) Vital Signs Temp Pulse Resp BP Pulse Ox 03/21/21 07:46 97.9 F 66 18 110/64 97 03/20/21 23:24 97.9 F 82 16 115/67 97 PG Care Time/CCT Total # of Minutes Spent Total Time Spent with Patient: Total time spent is greater than 50% in coordination of care (as documented) at patient's floor/unit and/or counseling patient: Coding Level of Care Code 73769 Subseq Hosp Care Lvl 2 Diagnoses Fall W19.XXXA Bradycardia R00.1 Coronary artery disease I25.118 Associated angina: with stable angina Coronary Disease-Associated Artery/Lesion type: [place] artery [place] vs. transplanted heart: [place] heart Atrial fibrillation I48.91 T12 compression fracture S22.080A Acute kidney injury N17.9 Acute UTI (urinary tract infection) N39.0 Hypothyroidism E03.9 Hypothyroidism type: unspecified Hypertension I10 Hypertension type: essential hypertension Blepharitis H01.009 Unintentional weight loss R63.4 (1) Coronary artery disease Associated angina: with stable angina Coronary Disease-Associated Artery/Lesion type: [place] artery [place] vs. transplanted heart: [place] heart Qualified Code(s): I25.118 - Atherosclerotic heart disease of [place] coronary artery with other forms of angina pectoris (2) Hypothyroidism Hypothyroidism type: unspecified Qualified Code(s): E03.9 - Hypothyroidism, unspecified (3) Hypertension Hypertension type: essential hypertension Qualified Code(s): I10 - Essential (primary) hypertension
[2021-03-21] MEDS: CALCITONIN SALMON NA 200 IU/AC 3.7 ML BTL SCH (11:53)
[2021-03-21] MEDS: CELECOXIB 100 MG CAP PO SCH (11:53)
[2021-03-21] MEDS: SENNA 8.6 MG TAB PO SCH (11:53)
[2021-03-21] MEDS: LIDOCAINE 5% 1 PATCH TD SCH (20:21)
[2021-03-22] MEDS: oxyCODONE HCL IR 5 MG TAB (IMMEDIATE RELEASE) PO PRN (05:18)
[2021-03-22] MEDS: LEVOTHYROXINE SODIUM 112 MCG TABLET PO SCH (05:18)
[2021-03-22] MEDS: ACETAMINOPHEN 500 MG TAB PO SCH ×2 (08:14→14:28)
[2021-03-22] MEDS: MULTIVITAMIN TAB PO SCH (08:14)
[2021-03-22] MEDS: SENNA 8.6 MG TAB PO SCH (08:14)
[2021-03-22] MEDS: DOCUSATE SODIUM 100 MG CAP PO SCH (08:14)
[2021-03-22] MEDS: CELECOXIB 100 MG CAP PO SCH (08:14)
[2021-03-22] MEDS: GABAPENTIN 100 MG CAP PO SCH (08:14)
[2021-03-22] MEDS: CALCITONIN SALMON NA 200 IU/AC 3.7 ML BTL SCH (08:15)
--- NOTE | 2021-03-22 08:53 | Hospitalist Progress Note ---
Date of Service March 22, 2021 Assessment & Plan (1) Fall: Plan: likely due to hypotension/bradycardia from medication, initially low blood pressures on admission -- Blood pressure now improved with holding diuretics and anti-hypertensives, including meds for afib cardiology recommends to continue to avoid beta blockers - PT/OT evaluations (2) Bradycardia: Plan: - Had HR in 40s on arrival to ER likely related to metoprolol; has maintained in 50-70s on monitor - Has chronic HFrEF related to severe mitral regurgitation - volume status appropriate at this time - Cardiology recommends stopping beta blockers consider continuing anticoagulation (3) Coronary artery disease: Plan: - Echo - No evidence of wall motion abnormalities in setting of troponins 1.0- 1.4 - Has chronic elevated troponins since 2009 likely in the setting of longstanding cardiac disease - No anginal symptoms (4) Atrial fibrillation: Plan: - Appears chronic; on Eliquis (currently on hold due to T12 fx) -- Plan to reinstitute Eliquis - Cardiology following - appreciate consult -- Not instituting beta blockers at this time; holding diuretics (5) T12 compression fracture: Plan: - Acute T12 compression fracture/old L1 compression fracture - suspect due to osteoporosis and trauma from fall there is some concern regarding oxycodone use, will stop oxycontin as pt states it does not work -oxycodone 5 mg prn, Dilaudid 0.5 mg IV every 3 hours as needed severe pain - Tylenol NADEGE Gabapentin 100 mg BID, celebrex, miacalcin, lidoderm - Stat CT read questioned possible hemorrhage around T12; official read says edema - Will add Colace BID and may need to increase bowel regimen to prevent constipation - May benefit from back brace - orthotics consult placed - PT/OT evaluations Patient has undergone pain injections in the past from [facility], and may require so again or need pain management given pain. Daughter states patient has dealt with chronic pain due to lumbar stenosis and has a significant curvature and she would have difficulty getting her to take pain medication prior to this even though she was having pain (6) Acute kidney injury: Plan: - Creatinine 1.53 initially and resolved to baseline around 0.8 -- Her daughter reports a recent increase in her furosemide dosing to try to control lower extremity edema. -continue to hold furosemide 40 mg p.o. twice daily, spironolactone 12.5 mg p.o. daily and lisinopril 5 mg p.o. daily. (7) Acute UTI (urinary tract infection): Plan: - Follow urine culture and sensitivity -likely contaminated specimen - Ceftriaxone 1 g IV daily maybe cover x 1 more day and can stop (8) Hypothyroidism: Plan: - TSH WNL - Continue levothyroxine 112 mcg daily (9) Hypertension: Plan: - BP has improved since admission - holding anti-hypertensives - Suspect the need for medication adjustments possibly due to her weight loss (10) Blepharitis: Plan: resolved (11) Unintentional weight loss: Plan: - BMI 18 - Has lost about 17 lbs in last 6 months - possibly some water weight but also reporting early satiety; has been using Boost at home and will continue -under weight Plan: - Obtain pain control - - PT/OT - will likely need rehab Admission and Anticipated Discharge Date Admission Date: March 18, 2021 Results & Data Results & Data ([facility]) Vital Signs (Past 12 Hours) Vital Signs Temp Pulse Resp BP Pulse Ox 03/22/21 08:41 97.3 F L 68 18 101/61 94 03/21/21 22:01 97.9 F 61 16 95/54 L 92 PG Care Time/CCT Total # of Minutes Spent Total Time Spent with Patient: Total time spent is greater than 50% in coordination of care (as documented) at patient's floor/unit and/or counseling patient: Coding Diagnoses Fall W19.XXXA Bradycardia R00.1 Coronary artery disease I25.118 Associated angina: with stable angina Coronary Disease-Associated Artery/Lesion type: [place] artery [place] vs. transplanted heart: [place] heart Atrial fibrillation I48.91 T12 compression fracture S22.080A Acute kidney injury N17.9 Acute UTI (urinary tract infection) N39.0 Hypothyroidism E03.9 Hypothyroidism type: unspecified Hypertension I10 Hypertension type: essential hypertension Blepharitis H01.009 Unintentional weight loss R63.4 (1) Coronary artery disease Associated angina: with stable angina Coronary Disease-Associated Artery/Lesion type: [place] artery [place] vs. transplanted heart: [place] heart Qualified Code(s): I25.118 - Atherosclerotic heart disease of [place] coronary artery with other forms of angina pectoris (2) Hypothyroidism Hypothyroidism type: unspecified Qualified Code(s): E03.9 - Hypothyroidism, unspecified (3) Hypertension Hypertension type: essential hypertension Qualified Code(s): I10 - Essential (primary) hypertension
--- NOTE | 2021-03-22 10:01 | Orthopedic Consultation ---
Date of Consultation March 22, 2021 Assessment & Plan (1) T12 compression fracture: At this time the patient does have evidence of acute T12 compression fracture and it is still considerably uncomfortable for her. I have ordered a TLSO brace hopefully this will provide some additional support. I did discuss with her that the symptoms continue to be limiting over the next few days we may need to consider an MRI lumbar spine and kyphoplasty to help with her pain. She understands agrees. This point she like to avoid surgical invention. History of Present Illness Reason for Consultation: Back pain Attending Physician: Jonathan Brock MD History of Present Illness This is a very pleasant 85-year-old female who presents this weekend with acute back pain status post fall in her bathroom. This morning she is struggling with discomfort in the thoracolumbar region. She denies any numbness or tingling to lower extremities. Denies any strength deficits. She still states the pain is quite significant. Allergies Allergy/AdvReac Type Severity Reaction Status Date / Time doxycycline AdvReac nauseated Verified 02/10/21 07:57 Home Medications Medication Instructions Recorded Confirmed Type nitroglycerin 0.4 mg sublingual 0.4 mg SL UD PRN tab 11/22/18 03/17/21 History tablet multivitamin 1 tab PO DAILY 12/17/18 03/17/21 History docusate sodium 100 mg capsule 100 mg PO DAILY PRN cap 06/04/19 03/17/21 History apixaban 2.5 mg tablet (Eliquis) 2.5 mg PO BID #180 tab 01/12/21 03/17/21 Rx metoprolol tartrate 50 mg tablet 50 mg PO BID #180 tab 01/12/21 03/17/21 Rx furosemide 40 mg tablet 40 mg PO BID tab 02/10/21 03/17/21 History spironolactone 25 mg tablet 12.5 mg PO DAILY tab 02/10/21 03/17/21 History hydrocodone bitartrate 30 mg 30 mg PO DAILY #30 tab 02/15/21 03/17/21 Rx tablet,crush resist,extended rel. 24hr oxycodone 5 mg tablet 5 - 10 mg PO Q8H PRN #100 tab 03/03/21 03/17/21 Rx aspirin 81 mg tablet,delayed 81 mg PO DAILY 03/17/21 03/17/21 History release (Aspirin Low Dose) diclofenac sodium 1 % topical gel 4 g TOPICAL QID PRN 03/17/21 03/17/21 History levothyroxine 112 mcg tablet 112 mcg PO DAILY 03/17/21 03/17/21 History lisinopril 5 mg tablet 5 mg PO DAILY 03/17/21 03/17/21 History Patient History Medical History CAD (coronary artery disease) NSTEMI, s/p proximal LAD stent in 2010 Compression fracture of L1 lumbar vertebra Hx of myocardial infarction Pseudogout of right wrist Pseudogout of right wrist Severe aortic stenosis Surgical History H/O bilateral hip replacements H/O neck surgery History of cataract surgery Family History Father Lung disease Sister Diabetes Breast cancer Other Heart disease Denies family history of Ovarian cancer Prostate cancer Coronary heart disease Colorectal cancer Cancer Social History Smoking Status: Never smoker Second Hand Exposure: No; Hx Alcohol Use: No Hx Substance Use: No Preferred Language: Welsh Communication Ability: Effective Visual Impairment: No Limitations Hearing Ability: Normal Beliefs That Will Affect Care: None Current Living Situation: Alone current occupational status: retired How many Children do You have: 3 Feels Safe at Home: Yes Childhood Exposure to Second-Hand Smoke: Yes caffeine: Yes Dental Care, Regularly: No Physical Activity Frequency: Does not Exercise Seatbelt Use: always Sunscreen Use: Yes Assistive Devices: None Physical Exam Physical Exam: On exam she is in the chair at bedside. She is holding her back secondary to pain. She does have reasonable strength testing lower extremities. Results & Data ([facility]) Vital Signs (Past 12 Hours) Vital Signs Temp Pulse Resp BP Pulse Ox 03/22/21 08:41 36.3 C L 68 18 101/61 94 03/21/21 22:01 36.6 C 61 16 95/54 L 92
--- NOTE | 2021-03-22 10:24 | Cardiology Progress Note ---
Date of Service March 22, 2021 Assessment & Plan (1) Elevated troponin: (2) Severe mitral insufficiency: (3) Atrial fibrillation: (4) Severe tricuspid valve insufficiency: (5) Bradycardia: (6) T12 compression fracture: Plan: Patient is an 85-year-old female with complex cardiac history as outlined. Includes chronic atrial fibrillation, chronic diastolic heart failure secondary to severe mitral tricuspid insufficiency, pulmonary hypertension, stable chronic ischemic heart disease. Patient admitted after suffering an acute fall. Etiology uncertain as to whether hypotension or bradycardia was contributing factor. Vital signs stable since admission, with holding anti hypertensives and beta blockers. Echo without wall motion abnormalities and preserved LV systolic function. Eliquis on hold due to recent fall and potential need for surgery if pain does not improve Recommendations: -Beta valentino discontinued. No recent or recurrent symptomatic bradycardia. Monitor vital signs. -Appears euvolemic and will continue to hold diuretics. -Continue to hold low dose Eliquis due to fall risk and potential need for surgical intervention on her thoracic fracture Case discussed with Dr. Tirado. Will monitor. Admission and Anticipated Discharge Date Admission Date: March 18, 2021 Supervising Physician Co-Signing Physician Notes Assessment and plan as above. No further bradycardia arrhythmias historically. Has not required additional beta-valentino for heart rate control no signs or symptoms of congestive heart failure. Subjective Patient sitting out of bed in chair. Notes significant thoracic back pain. Ortho just in to see patient and brace to be applied. If no improvement in pain tolerance over the next few days, considering MRI and possible kyphoplasty per ortho notes. Patient denies dizziness or syncope/near syncope. No orthopnea, PND or increased edema. She denies chest pain or SOB. BP and HR controlled today. She is trying to improve diet. She reports eating more this morning than she has in the last few weeks Review of Systems Review of Systems: All systems reviewed & are unremarkable except as noted in HPI & below Physical Exam Constitutional: + acute distress (ongoing back discomfort with minimal movement) and + thin Eyes: PERRL, conjunctivae normal, anicteric sclerae ENMT: external ear and nose normal, oropharynx normal Neck: trachea midline, no thyromegaly Respiratory: normal respiratory effort, lungs clear to auscultation Cardiovascular: Rate/Rhythm: + irregularly irregular Heart Sounds: + murmur (2/6 systolic murmur at apex); no gallop Vessels: no JVD Extremities: no edema Gastrointestinal (Abdomen): normal bowel sounds, soft, nontender, no hepatosplenomegaly Musculoskeletal: no cyanosis or clubbing, extremities motor strength 5/5 Neurologic: PERRL, EOMI, accommodation nl, no face palsy, no dysarthria Psychiatric: A+Ox3, euthymic affect Results & Data ([facility]) Vital Signs (Past 12 Hours) Vital Signs Temp Pulse Resp BP Pulse Ox 03/22/21 08:41 36.3 C L 68 18 101/61 94 Laboratory Results No recent labs to review Diagnostic Findings No recent imaging to review Medications Administered Current Inpatient Medications Acetaminophen (Acetaminophen 500 Mg Tab) 1,000 mg PO TID NADEGE Stop: 04/17/21 12:29 Last Admin: 03/22/21 08:14 Dose: 1,000 mg Documented by: Calcitonin [place] (Calcitonin [place] Na 200 Iu/Ac 3.7 Ml Btl) 1 sprays NA DAILY NADEGE Stop: 04/20/21 11:14 Last Admin: 03/22/21 08:15 Dose: 1 sprays Documented by: Celecoxib (Celecoxib 100 Mg Cap) 100 mg PO DAILY NADEGE Stop: 04/20/21 11:14 Last Admin: 03/22/21 08:14 Dose: 100 mg Documented by: Docusate Sodium (Docusate Sodium 100 Mg Cap) 100 mg PO BID NADEGE Stop: 04/18/21 20:59 Last Admin: 03/22/21 08:14 Dose: 100 mg Documented by: Gabapentin (Gabapentin 100 Mg Cap) 100 mg PO BID NADEGE Stop: 04/18/21 20:59 Last Admin: 03/22/21 08:14 Dose: 100 mg Documented by: Levothyroxine Sodium (Levothyroxine Sodium 112 Mcg Tablet) 112 mcg PO DAILYBB NADEGE Stop: 04/17/21 06:29 Last Admin: 03/22/21 05:18 Dose: 112 mcg Documented by: Lidocaine (Lidocaine 5% 1 Patch) 1 patch TD QPM NADEGE Stop: 04/17/21 20:09 Last Admin: 03/21/21 20:21 Dose: 1 patch Documented by: Miscellaneous (Remove Lidoderm Patch) 1 ea N/A QAM NADEGE Stop: 04/18/21 08:59 Last Admin: 03/22/21 08:15 Dose: 1 ea Documented by: Multivitamins (Multivitamin Tab) 1 tab PO DAILY NADEGE Stop: 04/17/21 08:59 Last Admin: 03/22/21 08:14 Dose: 1 tab Documented by: Nitroglycerin (Nitroglycerin Sl 0.4 Mg/Tab Tab) 0.4 mg SL UD PRN PRN Reason: Chest Pain Stop: 04/17/21 02:54 Ondansetron HCl (Ondansetron Inj 2 Mg/Ml 2 Ml Vial) 4 mg IV Q6H PRN PRN Reason: Nausea Stop: 04/17/21 02:54 Oxycodone HCl (Oxycodone Hcl Ir 5 Mg Tab (Immediate Release)) 10 mg PO Q6H PRN PRN Reason: Moderate Pain -04/24 Stop: 04/01/21 02:54 Last Admin: 03/22/21 05:18 Dose: 10 mg Documented by: Sennosides (Senna 8.6 Mg Tab) 8.6 mg PO QAM [facility] Stop: 04/20/21 11:14 Last Admin: 03/22/21 08:14 Dose: 8.6 mg Documented by:
--- NOTE | 2021-03-22 14:54 | Discharge Summary ---
Date of Service March 22, 2021 Admission HPI Per Admitting Provider The patient is an 85-year-old female with a past medical history including hyperglobulinemia, thrombocytopenia, peripheral edema, severe tricuspid valve insufficiency, severe mitral valve insufficiency, atrial fibrillation, history of NC, mild cognitive impairment, hypothyroidism, hyperlipidemia, cervical spine stenosis, CAD and chronic low back pain. Patient reports that she was stepping out of the shower earlier this evening, she ended up falling to the floor. She does not remember slipping on anything, and her daughter reports that when she looked at the site there was no sign of slippage. She denies loss of bowel or bladder control. She denies focal weakness in arms or legs. She does feel generally weak. She has had a intermittent problem with gross hematuria over the past few months, but was reluctant to get tested at her PCPs office. The patient is able to contribute to her HPI and review of systems, and her daughter supports her story. Principal Diagnosis T12 FRACTURE, FALL, BRADYCARDIA, UTI, ALL Discharge Exam The patient appeared well Vital signs as documented. Lungs are clear to auscultation and appear unlabored Cardiac exam, Rhythm is regular.. No murmurs, rubs or gallops. Abdominal exam reveals normal bowel sounds, soft non tender, no masses Extremities are nonedematous and both pedal pulses are normal. Neurologic exam is alert and oriented, no focal loss of strength or sensation Skin is without bruises or rashes Psychologically is without concerns for anxiety or depression. Discharge Data Allergies Allergy/AdvReac Type Severity Reaction Status Date / Time doxycycline AdvReac nauseated Verified 02/10/21 07:57 Consultations 03/18/21 00:11 ED Decision to Admit Stat 03/18/21 16:10 Consult Cardiology Routine 03/21/21 07:00 Consult Orthopedic Surgery Routine Ordered Studies 03/17/21 22:39 CT head/brain wo con Urgent CT lumbar spine wo con Urgent Hospital Course (1) Fall: likely due to hypotension/bradycardia from medication, initially low blood pressures on admission -- Blood pressure now improved with holding diuretics and anti-hypertensives, including meds for afib cardiology recommends to continue to avoid beta blockers (2) Bradycardia: - Had HR in 40s on arrival to ER likely related to metoprolol; has maintained in 50-70s on monitor - Has chronic HFrEF related to severe mitral regurgitation - volume status appropriate at this time - Cardiology recommends stopping beta blockers restart anticoagulation at discharge (3) Coronary artery disease: - Echo - No evidence of wall motion abnormalities in setting of troponins 1.0- 1.4 - Has chronic elevated troponins since 2009 likely in the setting of longstanding cardiac disease - No anginal symptoms (4) Atrial fibrillation: - Appears chronic; on Eliquis (currently on hold due to T12 fx) -- Plan to reinstitute Eliquis - Cardiology following - appreciate consult -- Not instituting beta blockers at this time; also discontinued diuretics (5) T12 compression fracture: - Acute T12 compression fracture/old L1 compression fracture - suspect due to osteoporosis and trauma from fall there is some concern regarding oxycodone use, will stop oxycontin as pt states it does not work -oxycodone 5 mg prn, - Tylenol NADEGE Gabapentin 100 mg BID, celebrex, miacalcin, lidoderm - Stat CT read questioned possible hemorrhage around T12; official read says edema - added Colace BID and may need to increase bowel regimen to prevent constipation - May benefit from back brace - orthotics consult placed - PT/OT evaluations Patient has undergone pain injections in the past from [facility], and may require so again or need pain management given pain. Daughter states patient has dealt with chronic pain due to lumbar stenosis and has a significant curvature and she would have difficulty getting her to take pain medication prior to this even though she was having pain (6) Acute kidney injury: - Creatinine 1.53 initially and resolved to baseline around 0.8 -- Her daughter reports a recent increase in her furosemide dosing to try to control lower extremity edema. -Discontinue furosemide 40 mg p.o. twice daily, spironolactone 12.5 mg p.o. daily and lisinopril 5 mg p.o. daily. (7) Acute UTI (urinary tract infection): - Follow urine culture and sensitivity -likely contaminated specimen - Ceftriaxone 1 g IV daily x3 days (8) Hypothyroidism: - TSH WNL - Continue levothyroxine 112 mcg daily (9) Hypertension: - BP has improved since admission - holding anti-hypertensives - Suspect the need for medication adjustments possibly due to her weight loss (10) Blepharitis: resolved (11) Unintentional weight loss: - BMI 20 - Has lost about 17 lbs in last 6 months -severe malnutrition by records Severe malnutrition due to weight loss - Obtain pain control - - PT/OT transfer to inpatient rehab Total Time Total Time Spent Total Time Spent (In Minutes): It required greater than 30 minutes to prepare this patient for discharge Discharge Plan Discharge Items Patient Disposition: Transfer Inpatient Rehab Fac Reason For Visit: T12 FRACTURE, FALL, BRADYCARDIA, UTI, ALL Discharge Diagnosis: thoracic compression fracture Activity: Per Instructions section Activity Comment: Per PT/OT at facility Non-emergency contact: Primary Care Provider Call non-emergency contact if: you have any medication questions and your symptoms worsen Follow-up/Referrals: Lorenza Armendariz CRNP [Primary Care Provider] - Diet: Regular Diet Comment: will benefit from nutritional supplements Addtl Attending Provider Instructions: you have a thoracic compression fracture, this will hurt when you move but slowly get less painful as you heal, the doctors at [facility] will help adjust your pain pain medicines Pending Studies at Discharge: No Stand-Alone Forms: My [facility] Skilled Items Patient informed of condition?: Yes DNR: Yes Discharge Level of Care: Acute rehab Communicable Disease: No Discharge Prognosis: Stable Lines: None Urinary Catheter: No Medications and DC Order Prescriptions: New oxycodone 5 mg Tablet 10 mg PO Q6H PRN (Reason: pain (scale score 4-6)) Qty: 10 RF: 0 acetaminophen [Tylenol Extra Strength] 500 mg Tablet 1,000 mg PO TID Qty: 90 RF: 0 celecoxib [Celebrex] 100 mg Capsule 100 mg PO DAILY Qty: 30 RF: 0 gabapentin 100 mg Capsule 100 mg PO BID Qty: 30 RF: 0 sennosides [Senokot] 8.6 mg Tablet 17.2 mg PO QAM Qty: 30 RF: 0 calcitonin (salmon) 200 unit/actuation [place],Non-Aerosol 1 spray NA DAILY Qty: 3.7 RF: 0 lidocaine 5 % Adhesive Patch,Medicated 1 patch transdermal QPM Qty: 30 RF: 0 Continued Eliquis 2.5 mg tablet 2.5 mg PO BID Qty: 180 RF: 3 nitroglycerin 0.4 mg tablet, sublingual 0.4 mg SL UD PRN (Reason: Chest Pain) RF: 0 docusate sodium 100 mg capsule 100 mg PO DAILY PRN (Reason: Constipation) RF: 0 multivitamin tablet 1 tab PO DAILY RF: 0 levothyroxine 112 mcg tablet 112 mcg PO DAILY RF: 0 aspirin [Aspirin Low Dose] 81 mg Tablet,Delayed Release (Dr/Ec) 81 mg PO DAILY RF: 0 Discontinued metoprolol tartrate 50 mg tablet 50 mg PO BID Qty: 180 RF: 3 hydrocodone bitartrate 30 mg tablet,oral only,ext.rel.24 hr 30 mg PO DAILY Qty: 30 RF: 0 oxycodone 5 mg tablet 5 - 10 mg PO Q8H PRN (Reason: Pain) Qty: 100 RF: 0 furosemide 40 mg tablet 40 mg PO BID RF: 0 spironolactone 25 mg tablet 12.5 mg PO DAILY RF: 0 lisinopril 5 mg tablet 5 mg PO DAILY RF: 0 diclofenac sodium 1 % Gel 4 g TOPICAL QID PRN (Reason: Pain) RF: 0 Discharge Orders: Discharge Order (Routine); Ordered 03/22/21 Ordered By: Jonathan Brock Admission Data Admit Date/Time: 03/18/21 01:11 Attending Provider: Jonathan Brock Admit Provider: Homero Ma Primary Care Provider: Lorenza Armendariz Other Providers: [facility] ; Homero Ma ; Jonathan Cooper ; Brandin Chen Other Interventions: Discharge Summary Assessment (RN) Last Done: 03/22/21 12:57 Coding Level of Care Code D/C DAY MANAGEMENT >30 MINS Diagnoses Fall W19.XXXA Bradycardia R00.1 Coronary artery disease I25.118 Associated angina: with stable angina Coronary Disease-Associated Artery/Lesion type: [place] artery [place] vs. transplanted heart: [place] heart Atrial fibrillation I48.91 T12 compression fracture S22.080A Acute kidney injury N17.9 Acute UTI (urinary tract infection) N39.0 Hypothyroidism E03.9 Hypothyroidism type: unspecified Hypertension I10 Hypertension type: essential hypertension Blepharitis H01.009 Unintentional weight loss R63.4
== END 2021-03-22 17:21 | DRG 551 ==
LOC: ED 21:39 → SUATTDRO 03-18 01:11 → 2S 03-18 01:11 → 3N 03-20 13:30

== ENCOUNTER 2021-04-12 18:31 | Observation (INO) ==
--- NOTE | 2021-04-12 18:52 | Emergency Department Note ---
History of Present Illness General Chief complaint: Nose Bleed (Minor) Stated complaint: nosebleed History of Present Illness Ale Escobedo is an 85 year old female with history of atrial fibrillation on Eliquis, CAD s/p LAD stent on bASA, tricuspid and mitral valve insufficiency, HTN, DLD, hypothyroidism, recent T12 compression fracture among others listed below who presents to the Emergency Department for evaluation of epistaxis from her left nares which spontaneously began at 1200 this afternoon. The patient denies suffering any falls or bumping her nose on anything prior to the onset of the bleeding. She does frequently use tissues to wipe her nose but she was not blowing it at the time of onset either. When the patient noticed the bleeding this afternoon, she attempted to apply direct pressure using tissues for several hours, however the bleeding persistent. When the patient's daughter came over to her house at 1700 this evening, her nose was still bleeding. EMS was called for assistance. When they arrived, she had stated that she felt a bit nauseous and dizzy. She was noted to be hypotensive at that time with BP 88/50. IV access was established and she was given 500 mL IVF which did help to improve her BP to 130s systolically. Upon arrival to the Emergency Department, patient's BP was still stable in 130s systolically, HR 70s, resp 18, maintaining ox sats 98% on room air. She was complaining of discomfort from the clamp on her nose but otherwise did not have additional complaints and stated that she no longer felt lightheaded, dizzy or nauseous. She also denied chest pain, palpitations, shortness of breath, abdominal pain, vomiting, diarrhea, or recent cough, sinus congestion, sore throat, fevers or chills. Of note, the patient was recently admitted to the hospital after suffering a T12 fracture and was then discharged to [facility] for acute rehab. Daughter at bedside stated that she was just discharged back to home a few days ago and lives alone. Home Medications Medication Instructions Recorded Confirmed Type nitroglycerin 0.4 mg sublingual 0.4 mg SL UD PRN tab 11/22/18 04/12/21 History tablet multivitamin 1 tab PO DAILY 12/17/18 04/12/21 History docusate sodium 100 mg capsule 100 mg PO DAILY PRN cap 06/04/19 04/12/21 History apixaban 2.5 mg tablet (Eliquis) 2.5 mg PO BID #180 tab 01/12/21 04/12/21 Rx aspirin 81 mg tablet,delayed 81 mg PO DAILY 03/17/21 04/12/21 History release (Aspirin Low Dose) levothyroxine 112 mcg tablet 112 mcg PO DAILY 03/17/21 04/12/21 History calcitonin (salmon) 200 1 spray NA DAILY #3.7 ml 03/22/21 04/12/21 Rx unit/actuation nasal spray celecoxib 100 mg capsule (Celebrex) 100 mg PO DAILY #30 cap 03/22/21 04/12/21 Rx gabapentin 100 mg capsule 100 mg PO BID #30 cap 03/22/21 04/12/21 Rx oxycodone 5 mg tablet 10 mg PO Q6H PRN #10 tab 03/22/21 04/12/21 Rx sennosides 8.6 mg tablet (Senokot) 17.2 mg PO QAM #30 tab 03/22/21 04/12/21 Rx acetaminophen 500 mg tablet 1,000 mg PO DIRECTED PRN 04/12/21 04/12/21 History (Tylenol Extra Strength) lidocaine 5 % topical patch 1 patch TRANSDERMAL QPM PRN 04/12/21 04/12/21 History Allergies Allergy/AdvReac Type Severity Reaction Status Date / Time doxycycline AdvReac nauseated Verified 04/12/21 23:19 Past Med/Surg History Medical History (Updated 04/13/21 @ 00:59 by Tracie Yarbrough PA-C) Atrial fibrillation CAD (coronary artery disease) NSTEMI, s/p proximal LAD stent in 2010 Compression fracture of L1 lumbar vertebra Coronary artery disease Hx of myocardial infarction Hyperlipidemia Hypertension Hypothyroidism Peripheral edema Pseudogout of right wrist Pseudogout of right wrist Severe aortic stenosis Severe mitral insufficiency Severe tricuspid valve insufficiency Thrombocytopenia Surgical History H/O bilateral hip replacements H/O neck surgery History of cataract surgery Family History Father Lung disease Sister Diabetes Breast cancer Other Heart disease Denies family history of Ovarian cancer Prostate cancer Coronary heart disease Colorectal cancer Cancer Social History Smoking Status: Never smoker Second Hand Exposure: No; Hx Alcohol Use: No Hx Substance Use: No Preferred Language: [place] Communication Ability: Effective Visual Impairment: No Limitations Hearing Ability: Normal Beliefs That Will Affect Care: None Current Living Situation: Alone current occupational status: retired How many Children do You have: 3 Feels Safe at Home: Yes Childhood Exposure to Second-Hand Smoke: Yes caffeine: Yes Dental Care, Regularly: No Physical Activity Frequency: Does not Exercise Seatbelt Use: always Sunscreen Use: Yes Assistive Devices: None Review of Systems A total of 10 systems reviewed and were otherwise negative Physical Exam Vital Signs Vital Signs - 24 hr 04/12/21 18:31 04/12/21 20:16 04/12/21 22:03 Temperature 36.4 C L Temperature Source Oral Pulse Rate 84 Pulse Rate [Finger] 78 80 Respiratory Rate 16 18 Blood Pressure 137/87 Blood Pressure [Right Arm] 142/62 H 151/76 H Blood Pressure Mean 103 Blood Pressure Mean [Right Arm] 88 101 Pulse Oximetry 97 97 93 Oxygen Delivery Method Room Air Room Air Room Air Sepsis Recent Fever Within 48 Hours No Sepsis New/Unexplained Change in Mental Status No Sepsis Action Taken by Nursing No Action Required 04/12/21 23:00 Temperature Temperature Source Pulse Rate Pulse Rate [Finger] 76 Respiratory Rate Blood Pressure Blood Pressure [Right Arm] 132/58 L Blood Pressure Mean Blood Pressure Mean [Right Arm] 82 Pulse Oximetry 98 Oxygen Delivery Method Sepsis Recent Fever Within 48 Hours Sepsis New/Unexplained Change in Mental Status Sepsis Action Taken by Nursing General: The patient is resting in bed, appears tired and a bit pale Head/eyes: Normocephalic, atraumatic, PERRL, EOMI ENT: Clamp removed from nasal bridge - initially there is no active bleeding, however after leaving the clamp off for a bit there is bright red blood coming from the left nares. Unable to appreciate specific source of the bleeding. Right nares clear. Clamp reapplied. There is blood in the posterior oropharynx Neck: Trachea midline, no meningismus, no mid-line cervical tenderness Resp: Good inspiratory effort on room air, lung sounds clear bilaterally CV: Regular rate and rhythm, peripheral pulses palpated Abd: Soft, non-distended, non-tender to palpation MSK: No obvious long bone deformities. Moving all extremities with strength 5/5 throughout, sensation and peripheral pulses intact Neuro: Awake, alert and oriented x 3, interacting and answering questions appropriately Procedures Epistaxis Control Nostril: left Nose Prepped With: lidocaine (1% with epi) Direct Inspection: yes and unable to visualize Clots Removed by: manually Device Inserted: nasal tampon Device Size: 4 Patient Tolerated Procedure: other (with some discomfort but overall well) Course Administered Medications Discontinued Medications Amoxicillin/Clavulanate Potassium (Amoxicillin/Clavulanate 875 Mg Tab) 1 tab PO NOW ONE Stop: 04/12/21 23:04 Last Admin: 04/12/21 23:15 Dose: 1 tab Documented by: [id number] Lidocaine/Epinephrine (Lidocaine/Epinephrine 1% 20 Ml Vial) 20 ml INFIL NOW ONE Stop: 04/12/21 21:53 Last Admin: 04/12/21 22:00 Dose: 20 ml Documented by: [id number] Oxymetazoline HCl (Oxymetazoline 0.05% 30 Ml Btl) 1 sprays NA NOW ONE Stop: 04/12/21 19:08 Last Admin: 04/12/21 19:14 Dose: 1 sprays Documented by: [id number] Medical Decision Making Differential Diagnosis Epistaxis, Kiesselbach's plexus injury, posterior pharyngeal bleed, bleeding disorder, medication complication, acute blood loss anemia, among others were considered. Laboratory Data Result diagrams: 04/12/21 19:23 04/12/21 19:23 Lab Results 04/12/21 04/12/21 04/12/21 Range/Units 19:23 19:23 19:23 WBC 4.17 L (4.8-10.8) K/uL RBC 3.29 L (4.2-5.4) M/uL Hgb 9.9 L (12.0-16.0) g/dL Hct 32.1 L (37-47) % MCV 97.6 (80-100) fL MCH 30.1 (25-34) pg MCHC 30.8 L (32-36) g/dL RDW Std Deviation 65.2 H (36.4-46.3) fL RDW Coeff of Steve 18.5 H (11.5-14.5) % Plt Count 119 L (130-400) K/uL MPV 10.1 (7.4-10.4) fL Immature Gran % (Auto) 0.2 % Neut % (Auto) 56.5 % Lymph % (Auto) 22.5 % Jennings % (Auto) 16.5 % Eos % (Auto) 3.6 % Baso % (Auto) 0.7 % Neut # (Auto) 2.35 (1.4-6.5) K/uL Lymph # (Auto) 0.94 L (1.2-3.4) K/uL Jennings # (Auto) 0.69 H (0.11-0.59) K/uL Eos # (Auto) 0.15 (0-0.5) K/uL Baso # (Auto) 0.03 (0-0.2) K/uL Immature Gran # (Auto) 0.01 (0.00-0.02) K/uL Polychromasia 1+ Anisocytosis Present Ovalocytes 1+ PT 13.0 H (9.0-12.0) Seconds INR 1.3 H (0.9-1.1) APTT 34.6 H (21.0-31.0) Seconds PTT Ratio 1.3 Sodium 140 (136-145) mmol/L Potassium 4.8 (3.5-5.1) mmol/L Chloride 113 H (98-107) mmol/L Carbon Dioxide 22 (21-32) mmol/L Anion Gap 5.0 (3-11) BUN 45 H (7-18) mg/dl Creatinine 0.86 (0.6-1.2) mg/dl Est Cr Clr Drug Dosing 44.0 ml/min Est GFR ( Amer) 70.9 ml/min Est GFR (Non-Af Amer) 61.2 ml/min BUN/Creatinine Ratio 51.9 H (10-20) Glucose 89 (70-99) mg/dl Calcium 8.7 (8.5-10.1) mg/dl Total Bilirubin 0.7 (0.2-1) mg/dl AST 31 (15-37) U/L ALT 12 (12-78) U/L Alkaline Phosphatase 195 H (45-117) U/L Total Protein 7.2 (6.4-8.2) gm/dl Albumin 2.8 L (3.4-5.0) gm/dl Globulin 4.4 H (2.5-4.0) gm/dl Albumin/Globulin Ratio 0.6 L (0.9-2) COVID-19 Eval Order SARS-CoV-2, RNA, NAAT (NEGATIVE) 04/12/21 04/12/21 Range/Units 23:11 23:11 WBC (4.8-10.8) K/uL RBC (4.2-5.4) M/uL Hgb (12.0-16.0) g/dL Hct (37-47) % MCV (80-100) fL MCH (25-34) pg MCHC (32-36) g/dL RDW Std Deviation (36.4-46.3) fL RDW Coeff of Steve (11.5-14.5) % Plt Count (130-400) K/uL MPV (7.4-10.4) fL Immature Gran % (Auto) % Neut % (Auto) % Lymph % (Auto) % Jennings % (Auto) % Eos % (Auto) % Baso % (Auto) % Neut # (Auto) (1.4-6.5) K/uL Lymph # (Auto) (1.2-3.4) K/uL Jennings # (Auto) (0.11-0.59) K/uL Eos # (Auto) (0-0.5) K/uL Baso # (Auto) (0-0.2) K/uL Immature Gran # (Auto) (0.00-0.02) K/uL Polychromasia Anisocytosis Ovalocytes PT (9.0-12.0) Seconds INR (0.9-1.1) APTT (21.0-31.0) Seconds PTT Ratio Sodium (136-145) mmol/L Potassium (3.5-5.1) mmol/L Chloride (98-107) mmol/L Carbon Dioxide (21-32) mmol/L Anion Gap (3-11) BUN (7-18) mg/dl Creatinine (0.6-1.2) mg/dl Est Cr Clr Drug Dosing ml/min Est GFR ( Amer) ml/min Est GFR (Non-Af Amer) ml/min BUN/Creatinine Ratio (10-20) Glucose (70-99) mg/dl Calcium (8.5-10.1) mg/dl Total Bilirubin (0.2-1) mg/dl AST (15-37) U/L ALT (12-78) U/L Alkaline Phosphatase (45-117) U/L Total Protein (6.4-8.2) gm/dl Albumin (3.4-5.0) gm/dl Globulin (2.5-4.0) gm/dl Albumin/Globulin Ratio (0.9-2) COVID-19 Eval Order Covid19 [facility] SARS-CoV-2, RNA, NAAT NEGATIVE (NEGATIVE) MDM Narrative Physical exam and history were performed. Nursing notes, EMR, and medication list were personally reviewed. Patient presented to the emergency department for evaluation of epistaxis from her left nares which has been persistent for approximately 6 hours prior to arrival. She stated that it spontaneously began to bleed, and she denied suffering any falls or bumping her nose prior to the episode. As the bleeding continued after attempting to apply direct pressure for several hours, EMS was called and brought the patient to the emergency department for further evaluation. They did note that she was complaining of dizziness and nausea upon their arrival. She was then noted to be hypotensive with systolic blood pressures in the 80s. IV access was established and she was given 500 mL IVF with improvement of her symptoms and systolic pressure into the 130s. Of note, the patient is on Eliquis 2.5 twice daily and baby aspirin for history of atrial fibrillation and CAD with stents in place. Upon arrival to the emergency department, the patient's vital signs remained stable with systolic blood pressures in the 130s, pulse 76, resp 18, maintaining sats 98% on room air. Clamp was removed from the nasal bridge - initially there was not active bleed ing, however after leaving the clamp off for a bit there is bright red blood coming from the left nares. Unable to appreciate specific source of the bleeding. Right nares clear. Clamp reapplied. There was also blood appreciated in the posterior oropharynx. No other significant findings on exam. Due to the continued bleeding over several hours without relief from applying pressure, I discussed the different treatment options with the patient and her daughter at bedside. They agreed to try Afrin nasal spray with reapplication of pressure. They also agreed to have blood work drawn including CBC, CMP, PT/INR and PTT to evaluate her blood levels, chemistry and coags in the setting of persistent bleeding on Eliquis. Afrin was administered to the patient and the clamp was reapplied to her nose for 30 minutes. Throughout this time, she had difficulty not touching it and continued to experience slow ooze of blood from her left nares and down her posterior oropharynx even with the clamp in place. This process was reattempted (Afrin spray with application of pressure for several minutes) x 4, however patient continued with oozing of blood. Concurrently, IV access was established, labs were drawn and reviewed by myself as above. Of note, patient's hgb did drop from 11.7 on 03/21/21 to 9.9 today. Platelets were low at 119 but she does have history of thrombocytopenia and this level was improved from prior which was 95. Coags were noted to be elevated with PT 13.0, INR 1.3 and PTT 34.6. on CMP, chloride was mildly elevated at 113, BUN slightly elevated at 45 but Cr WNL 0.86. Alk phos elevated a 195, which is increased from previous at 72 with low albumin 2.8 and globulin 4.4. She does have noted history of hyperglobulinemia. Patient was reevaluated several times after additional dosages of Afrin were given and direct pressure was reapplied, however she continued with slow ooze of blood from her left nares and down her posterior oropharynx. I discussed this as well as the results of her lab work including the slight drop in her hgb with my attending, Dr. Castaneda, and the patient and daughter at bedside. We discussed application of nasal packing to attempt to stop the bleeding, which they agreed to. Dr. Castaneda performed the nasal packing procedure at bedside. Please see the above procedure note. The patient did have some discomfort with the packing in place but it was overall tolerated well. Patient was then instructed that she will need to leave the packing in for 48 hours and will be started on Augmentin for prophylactic coverage. After application of the packing, the patient continued to experience blood dripping down her posterior oropharynx. On examination of this, it appears to be dark red clots mixed with mucous without continued active bleeding. We discussed that this will likely continue until the clots come out. The patient's daughter at bedside voiced her concerns about the patient being discharged to home as she lives alone and was worried what would happen if her nose started to bleed again should the packing become dislodged (patient having trouble leaving it alone despite counseling). She was also concerned because she did appear to have increased weakness when she got up to use the bathroom and was afraid that she will suffer a fall should she go home by herself. She requested admission to the hospital for observation for these reasons. The [facility] Hospitalist was contacted and agreed to evaluate the patient. The chart was completed utilizing [employer] Speech Voice Recognition Software. Grammatical errors, random word insertions, pronoun errors, and incomplete sentences are an occasional consequence of this system due to software limitations, ambient noise, and hardware issues. Any formal questions or concerns about the content, text, or information contained within the body of this dictation should be directly addressed to the provider for clarification. Impression & Plan Epistaxis, Anemia, Weakness Discharge Plan Visit Data Chief Complaint: Nose Bleed (Minor) Stated Complaint: nosebleed ED Provider: Johnathon Castaneda ED Midlevel Provider: Tracie Yarbrough Discharge Problem: Epistaxis, Anemia, Weakness Patient Disposition: Admitted As Inpatient Condition: Good Forms Stand Alone Forms: My [facility] Prescriptions Prescriptions: No Action Eliquis 2.5 mg tablet 2.5 mg PO BID Qty: 180 RF: 3 nitroglycerin 0.4 mg tablet, sublingual 0.4 mg SL UD PRN (Reason: Chest Pain) RF: 0 docusate sodium 100 mg capsule 100 mg PO DAILY PRN (Reason: Constipation) RF: 0 multivitamin tablet 1 tab PO DAILY RF: 0 levothyroxine 112 mcg tablet 112 mcg PO DAILY RF: 0 aspirin [Aspirin Low Dose] 81 mg Tablet,Delayed Release (Dr/Ec) 81 mg PO DAILY RF: 0 oxycodone 5 mg Tablet 10 mg PO Q6H PRN (Reason: pain (scale score 4-6)) Qty: 10 RF: 0 celecoxib [Celebrex] 100 mg Capsule 100 mg PO DAILY Qty: 30 RF: 0 gabapentin 100 mg Capsule 100 mg PO BID Qty: 30 RF: 0 sennosides [Senokot] 8.6 mg Tablet 17.2 mg PO QAM Qty: 30 RF: 0 calcitonin (salmon) 200 unit/actuation [place],Non-Aerosol 1 spray NA DAILY Qty: 3.7 RF: 0 acetaminophen [Tylenol Extra Strength] 500 mg tablet 1,000 mg PO DIRECTED PRN (Reason: Pain) RF: 0 lidocaine 5 % adhesive patch,medicated 1 patch transdermal QPM PRN (Reason: Pain) RF: 0 Referrals Referrals: Lorenza Armendariz CRNP [Primary Care Provider] -
[2021-04-12] MEDS ORDERED: OXYMETAZOLINE 0.05% 30 ML BTL ONE (19:07)
[2021-04-12 19:38] LABS: Basophils # (auto) 0.03 K/uL (0-0.2); Basophils % (auto) 0.7 %; Eosinophils # (auto) 0.15 K/uL (0-0.5); Eosinophils % (auto) 3.6 %; Hematocrit (blood only) 32.1 % (37-47); Hemoglobin 9.9 g/dL (12.0-16.0); Immature Granulocytes # (auto) 0.01 K/uL (0.00-0.02); Immature Granulocytes % (auto) 0.2 %; Lymphocytes # (auto) 0.94 K/uL (1.2-3.4); Lymphocytes % (auto) 22.5 %; Mean Corpuscular Hemoglobin 30.1 pg (25-34); Mean Corpuscular Hgb Conc 30.8 g/dL (32-36); Mean Corpuscular Volume 97.6 fL (80-100); Mean Platelet Volume 10.1 fL (7.4-10.4); Monocytes # (auto) 0.69 K/uL (0.11-0.59); Monocytes % (auto) 16.5 %; Neutrophils # (auto) 2.35 K/uL (1.4-6.5); Neutrophils % (auto) 56.5 %; Platelet Count 119 K/uL (130-400); RDW Coefficient of Variation 18.5 % (11.5-14.5); RDW Standard Deviation 65.2 fL (36.4-46.3); Red Blood Count 3.29 M/uL (4.2-5.4); White Blood Count 4.17 K/uL (4.8-10.8)
[2021-04-12 19:50] LABS: INR 1.3 (0.9-1.1); Partial Thromboplastin Ratio 1.3; Partial Thromboplastin Time 34.6 Seconds (21.0-31.0)
[2021-04-12 20:03] LABS: Albumin Level 2.8 gm/dl (3.4-5.0); BUN Creatinine Ratio 51.9 (10-20); Calcium 8.7 mg/dl (8.5-10.1); Est GFR (African American) 70.9 ml/min; Est GFR (Non-African American) 61.2 ml/min; Potassium 4.8 mmol/L (3.5-5.1)
[2021-04-12 20:06] LABS: Albumin Globulin Ratio 0.6 (0.9-2); Bilirubin,Total 0.7 mg/dl (0.2-1); Globulin 4.4 gm/dl (2.5-4.0); Total Protein 7.2 gm/dl (6.4-8.2)
[2021-04-12 20:29] LABS: Anisocytosis Present; Ovalocytes 1+; Polychromasia 1+
[2021-04-12] MEDS ORDERED: LIDOCAINE/EPINEPHRINE 1% 20 ML VIAL INFIL ONE (21:52)
--- NOTE | 2021-04-12 22:50 | Emergency Department Note ---
ED Visit Note Patient was seen and evaluated at the bedside w/ Radha Yarbrough PA-C. Please see their note for history, physical, details, and disposition. Patient did present with epistaxis. The patient did have nasal packing placed. Due to concern for safety the patient was admitted to the medicine service. Procedures Epistaxis Control Time Out Performed: Yes Nostril: left Nose Prepped With: lidocaine and oxymetazoline Direct Inspection: yes Clots Removed by: blowing nose Device Inserted: nasal tampon Device Size: 5 Patient Tolerated Procedure: well
[2021-04-12] MEDS ORDERED: AMOXICILLIN/CLAVULANATE 875 MG TAB PO ONE (23:03)
--- NOTE | 2021-04-12 23:40 | History & Physical Report ---
Date of Service April 12, 2021 Assessment & Plan (1) Epistaxis: Plan: Ale Escobedo is an 85-year-old female with past medical significant for hypertension, hyperlipidemia, atrial fib patient, tricuspid & mitral valve insufficiency; who presents for a day of persistent nosebleed while on Eliquis. Epistaxis: -Unprovoked epistaxis from left nares in the setting of chronic anticoagulation with Eliquis -Maintain nasal packing for control of bleeding -Hold anticoagulant overnight -Following hemostasis could resume Eliquis given indication is for atrial fibrillation Anemia: -Hgb 9.9 on admission -Notable change from earlier March with hemoglobins in 11-12 range -Hold aspirin and Eliquis overnight consideration of restarting in the morning -Recheck in a.m. Atrial fibrillation: -Patient recently moved from metoprolol dosing due to bradycardia during last hospital visit -In the setting of acute bleed will hold Eliquis overnight Hypothyroidism: -Continue home Synthroid Diet: Heart healthy CODE STATUS: Full code DVT prophylaxis: Deferred at this time in the setting of acute bleed (2) Atrial fibrillation: (3) Anemia: (4) Hyperlipidemia: (5) Hypothyroidism: History of Present Illness Primary Care Provider: ABIGAIL Ray Ale Escobedo is an 85-year-old female with past medical significant for hypertension, hyperlipidemia, atrial fib patient, tricuspid & mitral valve insufficiency; who presents for a day of persistent nosebleed while on Eliquis. Nosebleed started earlier today out of nowhere. Does not recall any specific trauma or blowing her nose over the day. Throughout the afternoon was having to utilize multiple tissues in order to stop the bleeding and ultimately did have it settle down for a short period of time before it restarted late this evening. When family came over and nose was bleeding EMS was called for assistance at which time on the arrival of EMS she was feeling more lightheaded and nauseous and had a brief period of hypotension. Upon arrival to the ED had return of normal mental status as well as improvement in her vital signs. Was continuing to have bleeding from her left nostril, this is causing her to feel uncomfortable with the idea of going back home given the total amount of time she had a nosebleed. At this time denies chest pain, shortness of breath, palpitations, abdominal frankie n, nausea, vomiting, lightheadedness, dizziness, fatigue, or weakness. Allergies Allergy/AdvReac Type Severity Reaction Status Date / Time doxycycline AdvReac nauseated Verified 04/12/21 23:19 Home Medications Medication Instructions Recorded Confirmed Type nitroglycerin 0.4 mg sublingual 0.4 mg SL UD PRN tab 11/22/18 04/12/21 History tablet multivitamin 1 tab PO DAILY 12/17/18 04/12/21 History docusate sodium 100 mg capsule 100 mg PO DAILY PRN cap 06/04/19 04/12/21 History apixaban 2.5 mg tablet (Eliquis) 2.5 mg PO BID #180 tab 01/12/21 04/12/21 Rx aspirin 81 mg tablet,delayed 81 mg PO DAILY 03/17/21 04/12/21 History release (Aspirin Low Dose) levothyroxine 112 mcg tablet 112 mcg PO DAILY 03/17/21 04/12/21 History calcitonin (salmon) 200 1 spray NA DAILY #3.7 ml 03/22/21 04/12/21 Rx unit/actuation nasal spray celecoxib 100 mg capsule (Celebrex) 100 mg PO DAILY #30 cap 03/22/21 04/12/21 Rx gabapentin 100 mg capsule 100 mg PO BID #30 cap 03/22/21 04/12/21 Rx oxycodone 5 mg tablet 10 mg PO Q6H PRN #10 tab 03/22/21 04/12/21 Rx sennosides 8.6 mg tablet (Senokot) 17.2 mg PO QAM #30 tab 03/22/21 04/12/21 Rx acetaminophen 500 mg tablet 1,000 mg PO DIRECTED PRN 04/12/21 04/12/21 History (Tylenol Extra Strength) lidocaine 5 % topical patch 1 patch TRANSDERMAL QPM PRN 04/12/21 04/12/21 History Past Med/Surg History Medical History Atrial fibrillation CAD (coronary artery disease) NSTEMI, s/p proximal LAD stent in 2010 Compression fracture of L1 lumbar vertebra Coronary artery disease Encounter for pre-operative examination Hx of myocardial infarction Hyperlipidemia Hypertension Hypothyroidism Peripheral edema Pseudogout of right wrist Pseudogout of right wrist Severe aortic stenosis Severe mitral insufficiency Severe tricuspid valve insufficiency Thrombocytopenia Surgical History H/O bilateral hip replacements H/O neck surgery History of cataract surgery Family History Father Lung disease Sister Diabetes Breast cancer Other Heart disease Denies family history of Ovarian cancer Prostate cancer Coronary heart disease Colorectal cancer Cancer Social History Smoking Status: Never smoker Second Hand Exposure: No; Do You Dip or Chew Tobacco: No; Hx Alcohol Use: No Hx Substance Use: No Preferred Language: Sinhala Communication Ability: Effective Visual Impairment: No Limitations Hearing Ability: Normal Banking Management Consulting Manager Required: No Beliefs That Will Affect Care: None marital status: / Current Living Situation: Alone Current Living Situation Comment: daughter lives close by current occupational status: retired How many Children do You have: 3 Other Information That Helps Us Care for You: No Feels Safe at Home: Yes Safety Concerns: Feels Safe At This Time Childhood Exposure to Second-Hand Smoke: Yes caffeine: Yes Dental Care, Regularly: No Physical Activity Frequency: Does not Exercise Seatbelt Use: always Sunscreen Use: Yes Assistive Devices: Denture - Upper and Walker Review of Systems Review of Systems: All systems reviewed & are unremarkable except as noted in HPI & below Physical Exam Constitutional: WD/WN, vitals as above Eyes: PERRL, conjunctivae normal, anicteric sclerae ENMT: Left naris with nasal packing, no visible active bleed from left nares or visualization in posterior pharynx Respiratory: normal respiratory effort, lungs clear to auscultation Auscultation: no crackles, no rales, no rhonchi and no wheezes Cardiovascular: Rate/Rhythm: regular rate and regular rhythm Heart Sounds: no gallop, no murmur and no cardiac rub Vessels: normal peripheral pulses; no JVD Extremities: no edema Gastrointestinal (Abdomen): Inspection/Auscultation: normal bowel sounds; abdomen not distended Percussion/Palpation: abdomen soft; abdomen nontender and no guarding Musculoskeletal: no cyanosis or clubbing, extremities motor strength 5/5 Skin: no rashes, warm and dry Neurologic: PERRL, EOMI, accommodation nl, no face palsy, no dysarthria CN's II-XI intact bilaterally and moves all extremities Psychiatric: Orientation: alert and oriented x 3 Results & Data Results & Data ([facility]) Vital Signs (Past 12 Hours) Vital Signs Temp Pulse Pulse Resp BP BP Pulse Ox 04/12/21 23:00 76 132/58 L 98 04/12/21 22:03 80 151/76 H 93 04/12/21 20:16 78 18 142/62 H 97 04/12/21 18:31 36.4 C L 84 16 137/87 97 Laboratory Results 04/12/21 04/12/21 04/12/21 Range/Units 23:11 23:11 19:23 WBC (4.8-10.8) K/uL RBC (4.2-5.4) M/uL Hgb (12.0-16.0) g/dL Hct (37-47) % MCV (80-100) fL MCH (25-34) pg MCHC (32-36) g/dL RDW Std Deviation (36.4-46.3) fL RDW Coeff of Steve (11.5-14.5) % Plt Count (130-400) K/uL MPV (7.4-10.4) fL Immature Gran % (Auto) % Neut % (Auto) % Lymph % (Auto) % Piatt % (Auto) % Eos % (Auto) % Baso % (Auto) % Neut # (Auto) (1.4-6.5) K/uL Lymph # (Auto) (1.2-3.4) K/uL Piatt # (Auto) (0.11-0.59) K/uL Eos # (Auto) (0-0.5) K/uL Baso # (Auto) (0-0.2) K/uL Immature Gran # (Auto) (0.00-0.02) K/uL Polychromasia Anisocytosis Ovalocytes PT (9.0-12.0) Seconds INR (0.9-1.1) APTT (21.0-31.0) Seconds PTT Ratio Sodium 140 (136-145) mmol/L Potassium 4.8 (3.5-5.1) mmol/L Chloride 113 H (98-107) mmol/L Carbon Dioxide 22 (21-32) mmol/L Anion Gap 5.0 (3-11) BUN 45 H (7-18) mg/dl Creatinine 0.86 (0.6-1.2) mg/dl Est Cr Clr Drug Dosing 44.0 ml/min Est GFR ( Amer) 70.9 ml/min Est GFR (Non-Af Amer) 61.2 ml/min BUN/Creatinine Ratio 51.9 H (10-20) Glucose 89 (70-99) mg/dl Calcium 8.7 (8.5-10.1) mg/dl Total Bilirubin 0.7 (0.2-1) mg/dl AST 31 (15-37) U/L ALT 12 (12-78) U/L Alkaline Phosphatase 195 H (45-117) U/L Total Protein 7.2 (6.4-8.2) gm/dl Albumin 2.8 L (3.4-5.0) gm/dl Globulin 4.4 H (2.5-4.0) gm/dl Albumin/Globulin Ratio 0.6 L (0.9-2) COVID-19 Eval Order Covid19 IDNow atMMNC SARS-CoV-2, RNA, NAAT NEGATIVE (NEGATIVE) 04/12/21 04/12/21 Range/Units 19:23 19:23 WBC 4.17 L (4.8-10.8) K/uL RBC 3.29 L (4.2-5.4) M/uL Hgb 9.9 L (12.0-16.0) g/dL Hct 32.1 L (37-47) % MCV 97.6 (80-100) fL MCH 30.1 (25-34) pg MCHC 30.8 L (32-36) g/dL RDW Std Deviation 65.2 H (36.4-46.3) fL RDW Coeff of Steve 18.5 H (11.5-14.5) % Plt Count 119 L (130-400) K/uL MPV 10.1 (7.4-10.4) fL Immature Gran % (Auto) 0.2 % Neut % (Auto) 56.5 % Lymph % (Auto) 22.5 % Piatt % (Auto) 16.5 % Eos % (Auto) 3.6 % Baso % (Auto) 0.7 % Neut # (Auto) 2.35 (1.4-6.5) K/uL Lymph # (Auto) 0.94 L (1.2-3.4) K/uL Piatt # (Auto) 0.69 H (0.11-0.59) K/uL Eos # (Auto) 0.15 (0-0.5) K/uL Baso # (Auto) 0.03 (0-0.2) K/uL Immature Gran # (Auto) 0.01 (0.00-0.02) K/uL Polychromasia 1+ Anisocytosis Present Ovalocytes 1+ PT 13.0 H (9.0-12.0) Seconds INR 1.3 H (0.9-1.1) APTT 34.6 H (21.0-31.0) Seconds PTT Ratio 1.3 Sodium (136-145) mmol/L Potassium (3.5-5.1) mmol/L Chloride (98-107) mmol/L Carbon Dioxide (21-32) mmol/L Anion Gap (3-11) BUN (7-18) mg/dl Creatinine (0.6-1.2) mg/dl Est Cr Clr Drug Dosing ml/min Est GFR ( Amer) ml/min Est GFR (Non-Af Amer) ml/min BUN/Creatinine Ratio (10-20) Glucose (70-99) mg/dl Calcium (8.5-10.1) mg/dl Total Bilirubin (0.2-1) mg/dl AST (15-37) U/L ALT (12-78) U/L Alkaline Phosphatase (45-117) U/L Total Protein (6.4-8.2) gm/dl Albumin (3.4-5.0) gm/dl Globulin (2.5-4.0) gm/dl Albumin/Globulin Ratio (0.9-2) COVID-19 Eval Order SARS-CoV-2, RNA, NAAT (NEGATIVE) Supervising Physician Co-Signing Physician Notes Attending addendum: I have physically seen this patient, have supervised the medical residents activities, and agree with the H&P unless as otherwise noted. Assessment and Plan: Epistaxis uncontrolled, unprovoked while on Eliquis- Continue nasal packing Hold Eliquis Hold aspirin ENT consult Dr. Davis Anemia- Hemoglobin 9.9, with baseline 11.7-12.0 H&H every 6 hours Atrial fibrillation- As noted above, hold Eliquis Off metoprolol due to recent bradycardia Remaining orders and notations as noted Resident Activity Tracking Resident Involvement: Resident Care Provided Care Provided: Adult Hospital Medicine (1) Hyperlipidemia Hyperlipidemia type: unspecified Qualified Code(s): E78.5 - Hyperlipidemia, unspecified (2) Hypothyroidism Hypothyroidism type: unspecified Qualified Code(s): E03.9 - Hypothyroidism, unspecified
[2021-04-13] MEDS ORDERED: ONDANSETRON INJ 2 MG/ML 2 ML VIAL IV PRN (02:08)
[2021-04-13] MEDS ORDERED: POLYETHYLENE (MIRALAX) 17 GM PACK PO PRN (02:08)
[2021-04-13] MEDS ORDERED: DOCUSATE SODIUM 100 MG CAP PO PRN (02:08)
[2021-04-13] MEDS ORDERED: MAGNESIUM HYDROXIDE SUSP 30 ML UDC PO PRN (02:08)
[2021-04-13] MEDS ORDERED: NITROGLYCERIN SL 0.4 MG/TAB TAB SL PRN (02:08)
[2021-04-13] MEDS ORDERED: ALUMINUM/MAGNESIUM SUSP 30 ML UDC PO PRN (02:08)
[2021-04-13] MEDS: LEVOTHYROXINE SODIUM 112 MCG TABLET PO SCH (05:59)
[2021-04-13] MEDS: oxyCODONE HCL IR 5 MG TAB (IMMEDIATE RELEASE) PO PRN ×2 (05:59→22:46)
[2021-04-13 06:58] LABS: Basophils # (auto) 0.02 K/uL (0-0.2); Basophils % (auto) 0.4 %; Eosinophils # (auto) 0.08 K/uL (0-0.5); Eosinophils % (auto) 1.5 %; Hematocrit (blood only) 30.5 % (37-47); Hemoglobin 9.6 g/dL (12.0-16.0); Immature Granulocytes # (auto) 0.01 K/uL (0.00-0.02); Immature Granulocytes % (auto) 0.2 %; Lymphocytes # (auto) 1.39 K/uL (1.2-3.4); Lymphocytes % (auto) 26.4 %; Mean Corpuscular Hemoglobin 30.5 pg (25-34); Mean Corpuscular Hgb Conc 31.5 g/dL (32-36); Mean Corpuscular Volume 96.8 fL (80-100); Mean Platelet Volume 10.4 fL (7.4-10.4); Monocytes # (auto) 0.69 K/uL (0.11-0.59); Monocytes % (auto) 13.1 %; Neutrophils # (auto) 3.08 K/uL (1.4-6.5); Neutrophils % (auto) 58.4 %; Platelet Count 129 K/uL (130-400); RDW Coefficient of Variation 18.4 % (11.5-14.5); RDW Standard Deviation 64.2 fL (36.4-46.3); Red Blood Count 3.15 M/uL (4.2-5.4); White Blood Count 5.27 K/uL (4.8-10.8)
[2021-04-13 07:33] LABS: BUN Creatinine Ratio 55.7 (10-20); Calcium 8.5 mg/dl (8.5-10.1); Creatinine Clr Calc Pharmacy 50.4 ml/min; Est GFR (African American) 83.7 ml/min; Est GFR (Non-African American) 72.2 ml/min; Magnesium 2.1 mg/dl (1.8-2.4); Potassium 4.7 mmol/L (3.5-5.1)
[2021-04-13 07:34] LABS: Phosphorus 2.2 mg/dl (2.5-4.9)
[2021-04-13] MEDS: SENNA 8.6 MG TAB PO SCH (07:56)
[2021-04-13] MEDS: GABAPENTIN 100 MG CAP PO SCH ×2 (07:56→19:32)
[2021-04-13] MEDS ORDERED: CELECOXIB 100 MG CAP PO SCH (09:00)
[2021-04-13] MEDS: ACETAMINOPHEN 325 MG TAB PO PRN ×2 (12:18→20:57)
[2021-04-13] MEDS ORDERED: OXYMETAZOLINE 0.05% 30 ML BTL ONE (14:11)
[2021-04-13] MEDS ORDERED: WATER, STERILE 10 ML, TETRACAINE 0.4 GM TOP ONE (16:00)
--- NOTE | 2021-04-13 16:06 | Anesthesiology Consultation ---
Date of Service April 13, 2021 Assessment & Plan (1) Encounter for pre-operative examination: Chart Review Chart Review: Acceptable Risk for Surgery and Patient NOT seen in Pre Admission Testing Consults Requested none History Surgery Operation Date: 04/13/21 17:05 Proposed Procedures p Cautery and Packing Nasal Bleed - Kelli Davis MD Height/Weight Height: 5 ft 6 in Weight: 59.3 kg Allergies Allergy/AdvReac Type Severity Reaction Status Date / Time doxycycline AdvReac nauseated Verified 04/12/21 23:19 Medications Home Medications Medication Instructions Recorded Confirmed Last Taken nitroglycerin 0.4 mg sublingual 0.4 mg SL UD PRN tab 11/22/18 04/12/21 Unknown tablet multivitamin 1 tab PO DAILY 12/17/18 04/12/21 04/12/21 docusate sodium 100 mg capsule 100 mg PO DAILY PRN cap 06/04/19 04/12/21 Unknown apixaban 2.5 mg tablet (Eliquis) 2.5 mg PO BID #180 tab 01/12/21 04/12/21 04/12/21 aspirin 81 mg tablet,delayed 81 mg PO DAILY 03/17/21 04/12/21 04/12/21 release (Aspirin Low Dose) levothyroxine 112 mcg tablet 112 mcg PO DAILY 03/17/21 04/12/21 04/12/21 calcitonin (salmon) 200 1 spray NA DAILY #3.7 ml 03/22/21 04/12/21 Unknown unit/actuation nasal spray celecoxib 100 mg capsule (Celebrex) 100 mg PO DAILY #30 cap 03/22/21 04/12/21 04/12/21 gabapentin 100 mg capsule 100 mg PO BID #30 cap 03/22/21 04/12/21 04/12/21 oxycodone 5 mg tablet 10 mg PO Q6H PRN #10 tab 03/22/21 04/12/21 Unknown sennosides 8.6 mg tablet (Senokot) 17.2 mg PO QAM #30 tab 03/22/21 04/12/21 04/12/21 acetaminophen 500 mg tablet 1,000 mg PO DIRECTED PRN 04/12/21 04/12/21 Unknown (Tylenol Extra Strength) lidocaine 5 % topical patch 1 patch TRANSDERMAL QPM PRN 04/12/21 04/12/21 Unknown Active Medications Generic Name Dose Route Start Last Admin Trade Name Freq PRN Reason Stop Dose Admin Acetaminophen 650 mg 04/13/21 02:08 04/13/21 12:18 Acetaminophen 325 Mg Tab PO 05/13/21 02:07 650 mg Q4H PRN Administration pain/fever Celecoxib 100 mg 04/13/21 09:00 04/13/21 07:56 Celecoxib 100 Mg Cap PO 05/13/21 08:59 100 mg DAILY NADEGE Administration Gabapentin 100 mg 04/13/21 09:00 04/13/21 07:56 Gabapentin 100 Mg Cap PO 05/13/21 08:59 100 mg BID NADEGE Administration Levothyroxine Sodium 112 mcg 04/13/21 06:30 04/13/21 05:59 Levothyroxine Sodium 112 Mcg Tablet PO 05/13/21 06:29 112 mcg DAILYBB NADEGE Administration Oxycodone HCl 10 mg 04/13/21 02:08 04/13/21 05:59 Oxycodone Hcl Ir 5 Mg Tab (Immediate Release) PO 04/27/21 02:07 10 mg Q6H PRN Administration pain (scale score 4-6) Sennosides 17.2 mg 04/13/21 09:00 04/13/21 07:56 Senna 8.6 Mg Tab PO 05/13/21 08:59 17.2 mg QAM NADEGE Administration Past Medical History Medical History (Updated 04/13/21 @ 16:05 by Thong Huitron MD) Atrial fibrillation CAD (coronary artery disease) NSTEMI, s/p proximal LAD stent in 2010 Compression fracture of L1 lumbar vertebra Coronary artery disease Encounter for pre-operative examination Hx of myocardial infarction Hyperlipidemia Hypertension Hypothyroidism Peripheral edema Pseudogout of right wrist Pseudogout of right wrist Severe aortic stenosis Severe mitral insufficiency Severe tricuspid valve insufficiency Thrombocytopenia Cardiology note from inpatient admission 03/22/21: Assessment & Plan (1) Elevated troponin: (2) Severe mitral insufficiency: (3) Atrial fibrillation: (4) Severe tricuspid valve insufficiency: (5) Bradycardia: (6) T12 compression fracture: Plan: Patient is an 85-year-old female with complex cardiac history as outlined. Includes chronic atrial fibrillation, chronic diastolic heart failure secondary to severe mitral tricuspid insufficiency, pulmonary hypertension, stable chronic ischemic heart disease. Patient admitted after suffering an acute fall. Etiology uncertain as to whether hypotension or bradycardia was contributing factor. Vital signs stable since admission, with holding anti hypertensives and beta blockers. Echo without wall motion abnormalities and preserved LV systolic function. Eliquis on hold due to recent fall and potential need for surgery if pain does not improve Recommendations: -Beta valentino discontinued. No recent or recurrent symptomatic bradycardia. Monitor vital signs. -Appears euvolemic and will continue to hold diuretics. -Continue to hold low dose Eliquis due to fall risk and potential need for surgical intervention on her thoracic fracture Case discussed with Dr. Tirado. Will monitor. Past Family History Family History Father Lung disease Sister Diabetes Breast cancer Other Heart disease Denies family history of Ovarian cancer Prostate cancer Coronary heart disease Colorectal cancer Cancer Past Surgical History Surgical History H/O bilateral hip replacements H/O neck surgery History of cataract surgery Social History Smoking Status: Never smoker Do You Dip or Chew Tobacco: No Hx Alcohol Use: No Hx Substance Use: No substance use type: does not use Physical Exam Vital Signs Last Vital Signs Temp 36.8 C 04/13/21 07:28 Pulse 84 04/13/21 07:28 Resp 16 04/13/21 07:28 BP 145/75 H 04/13/21 07:28 Pulse Ox 98 04/13/21 07:28 Testing Laboratory Results 04/13/21 06:15 04/13/21 06:15 PT 13.0 Seconds (9.0-12.0) H 04/12/21 19:23 INR 1.3 (0.9-1.1) H 04/12/21 19:23 APTT 34.6 Seconds (21.0-31.0) H 04/12/21 19:23 Electrocardiogram Date: 03/18/21 DICTATED BY: Tao Pride MD Test Reason : Blood Pressure : / mmHG Vent. Rate : 065 BPM Atrial Rate : 300 BPM P-R Int : 000 ms QRS Dur : 080 ms QT Int : 460 ms P-R-T Axes : 000 211 -81 degrees QTc Int : 478 ms Poor data quality, interpretation may be adversely affected Atrial fibrillation Right superior axis deviation Low voltage QRS Cannot rule out Anterior infarct (cited on or before 18-MAR-2021) Abnormal ECG When compared with ECG of 18-MAR-2021 18:33, (unconfirmed) Serial changes of Anterior infarct Present Confirmed by Tao Pride ([id number]) on 03/19/2021 12:16:24 PM Echocardiogram Date: 03/19/21 LV is normal in size. Mild LVH LV wall motion is normal. EF 65-70% LA is severely dilated. RA is moderately dilated. NO Mild AR Severe MR Moderate to severe TR RV systolic pressure is elevated at greater than 60mmHg consistent with severe pulmonary hypertension.
[2021-04-13] MEDS ORDERED: LIDOCAINE 2%/EPINEPHRINE 1:100,000 20ML ONE (16:27)
[2021-04-13] MEDS ORDERED: EPINEPHrine INJ 1 MG/ML AMP ONE ×2 (16:27→17:04)
[2021-04-13] MEDS ORDERED: GELATIN SPONGE SZ 100 ONE (16:28)
--- NOTE | 2021-04-13 16:43 | History & Physical Report ---
Date of Service April 13, 2021 Assessment & Plan (1) Epistaxis: Plan: endoscopic cautery and packing (2) Anemia: (3) Weakness: Admission and Anticipated Discharge Date Admission Date: April 12, 2021 History of Present Illness Chief Complaint: nose bleed Primary Care Provider: ABIGAIL Ray Sudden onset left sided epistaxis yesterday, decrease Hgb by 2 grams, still bleeding today, had eliquis Allergies Allergy/AdvReac Type Severity Reaction Status Date / Time doxycycline AdvReac nauseated Verified 04/12/21 23:19 Home Medications Medication Instructions Recorded Confirmed Type nitroglycerin 0.4 mg sublingual 0.4 mg SL UD PRN tab 11/22/18 04/12/21 History tablet multivitamin 1 tab PO DAILY 12/17/18 04/12/21 History docusate sodium 100 mg capsule 100 mg PO DAILY PRN cap 06/04/19 04/12/21 History apixaban 2.5 mg tablet (Eliquis) 2.5 mg PO BID #180 tab 01/12/21 04/12/21 Rx aspirin 81 mg tablet,delayed 81 mg PO DAILY 03/17/21 04/12/21 History release (Aspirin Low Dose) levothyroxine 112 mcg tablet 112 mcg PO DAILY 03/17/21 04/12/21 History calcitonin (salmon) 200 1 spray NA DAILY #3.7 ml 03/22/21 04/12/21 Rx unit/actuation nasal spray celecoxib 100 mg capsule (Celebrex) 100 mg PO DAILY #30 cap 03/22/21 04/12/21 Rx gabapentin 100 mg capsule 100 mg PO BID #30 cap 03/22/21 04/12/21 Rx oxycodone 5 mg tablet 10 mg PO Q6H PRN #10 tab 03/22/21 04/12/21 Rx sennosides 8.6 mg tablet (Senokot) 17.2 mg PO QAM #30 tab 03/22/21 04/12/21 Rx acetaminophen 500 mg tablet 1,000 mg PO DIRECTED PRN 04/12/21 04/12/21 History (Tylenol Extra Strength) lidocaine 5 % topical patch 1 patch TRANSDERMAL QPM PRN 04/12/21 04/12/21 History Past Med/Surg History Medical History Atrial fibrillation CAD (coronary artery disease) NSTEMI, s/p proximal LAD stent in 2011 Compression fracture of L1 lumbar vertebra Coronary artery disease Encounter for pre-operative examination Hx of myocardial infarction Hyperlipidemia Hypertension Hypothyroidism Peripheral edema Pseudogout of right wrist Pseudogout of right wrist Severe aortic stenosis Severe mitral insufficiency Severe tricuspid valve insufficiency Thrombocytopenia Surgical History H/O bilateral hip replacements H/O neck surgery History of cataract surgery Family History Father Lung disease Sister Diabetes Breast cancer Other Heart disease Denies family history of Ovarian cancer Prostate cancer Coronary heart disease Colorectal cancer Cancer Social History Smoking Status: Never smoker Second Hand Exposure: No; Do You Dip or Chew Tobacco: No; Hx Alcohol Use: No Hx Substance Use: No Preferred Language: Mohawk Communication Ability: Effective Visual Impairment: No Limitations Hearing Ability: Normal Threading Machine Tender Required: No Beliefs That Will Affect Care: None marital status: / Current Living Situation: Alone Current Living Situation Comment: daughter lives close by current occupational status: retired How many Children do You have: 3 Other Information That Helps Us Care for You: No Feels Safe at Home: Yes Safety Concerns: Feels Safe At This Time Childhood Exposure to Second-Hand Smoke: Yes caffeine: Yes Dental Care, Regularly: No Physical Activity Frequency: Does not Exercise Seatbelt Use: always Sunscreen Use: Yes Assistive Devices: Walker Physical Exam Constitutional: + acute distress (bleeding, BRB left nares) and + ill appearing Eyes: PERRL, conjunctivae normal, anicteric sclerae ENMT: Nose: + epistaxis (left nares) Neck: trachea midline, no thyromegaly Results & Data Results [facility]) Vital Signs (Past 12 Hours) Vital Signs Temp Pulse Resp BP Pulse Ox 04/13/21 16:14 36.8 C 86 18 131/60 100 04/13/21 07:28 36.8 C 84 16 145/75 H 98 PG Care Time/CCT Total # of Minutes Spent Total Time Spent with Patient: Total time spent is greater than 50% in coordination of care (as documented) at patient's floor/unit and/or counseling patient: Coding Level of Care Code None Diagnoses Epistaxis R04.0 Anemia D64.9 Weakness R53.1
[2021-04-13] MEDS: MUPIROCIN 2% OINT 22 GM TUBE ONE ×2 (17:30→17:32)
[2021-04-13] MEDS ORDERED: FLOSEAL HEMOSTATIC MATRIX 5ML TOP ONE (17:31)
--- NOTE | 2021-04-13 17:33 | Hospitalist Progress Note ---
Date of Service April 13, 2021 Assessment & Plan (1) Epistaxis: Plan: -Persistent epistaxis in the setting of chronic anticoagulation therapy and aspirin -Eliquis stopped. Aspirin also being held -I reassessed patient due to resumption of bleeding and she adamantly refused a nasal rocket. I did use Afrin and a nasal clamp and this seemed to control bleeding -Plan is for OR today for cautery -Continue to watch hemoglobin closely (2) Anemia: Plan: -2 g drop in 23 days -Watch H&H closely. No indication for transfusion at this time (3) Atrial fibrillation: Plan: -Currently in a normal sinus rhythm with controlled ventricular rate -no rate reducing medications on board -Does take chronic Eliquis which is being held due to epistaxis with 2 g drop in hemoglobin -[id number] 2 score = 5. Has bled score = 4 at present but with active bleeding, hold Eliquis. (4) Hx of myocardial infarction: Plan: -No evidence of ACS. As reported above, aspirin on hold due to active epistaxis (5) Hypertension: Plan: -Controlled. Patient not actively taking medication for Plan: Plan of care discussed with Dr. Montemayor and Dr. Davis Admission and Anticipated Discharge Date Admission Date: April 12, 2021 Subjective Patient seen on daily rounds today. She is an 85-year-old white female with an underlying past medical history of atrial fibrillation on chronic Eliquis. In addition, she takes aspirin. She was hospitalized last night due to ongoing epistaxis X 18 hours. Reports bleeding started yesterday morning and had been ongoing throughout the course of the day. She presented to the ED where she was found to have a hemoglobin of 9.9. Her hemoglobin done recently (03/21) was 11.7 She had a nasal rocket placed and was monitored for further evaluation and care. Eliquis was held last night but resumed this morning with admitting orders When seen this morning, patient reported that the nasal rocket "somehow came out". Reports epistaxis this morning when toileting but none presently. Throughout the course the day, the bleeding restarted but from both sides/tears at this point. Case discussed with ENT (Dr. Davis) initially the plan was for cautery as an outpatient but with persistent bleeding, this will be performed this afternoon. When bleeding restarted, patient was refusing to have a nasal rocket placed. I did consult with the ED staff and was recommended to give Afrin (2 sprays in each nostril) followed by a nasal clamp. This was performed and bleeding seemed to be managed. Patient was having large clots in the posterior pharynx that she was coughing up. Review of Systems Review of Systems: All systems reviewed and are unremarkable except as noted in HPI and below Denies fevers, chills, dizziness, lightheadedness, headache, nasal congestion, sore throat, cough, chest pain, shortness of breath, palpitations, orthopnea, PND, abdominal pain, nausea, vomiting, diarrhea, constipation, dysuria, hematuria, frequency, back pain, joint pain or swelling, easy bruising or bl ooding, skin lesions or rashes. Physical Exam 2 Physical Exam: General: Resting comfortably in her hospital bed. Does not appear ill or toxic HEENT: Head is AT/NC. Scabbed over lesion apparent in the left nare (anteriorly). Difficulty seeing the posterior nares. When seen a second time today, noted to have persistent trip from both nares. Unable to identify source of bleeding. Neck: No JVD. Negative hepatojugular reflex Cardiac: Currently regular rate and rhythm with controlled ventricular rate Lungs: CTA without W/R/R Abdomen: Normoactive X4. Soft and nontender in all quadrants. Extremities: No peripheral clubbing cyanosis or edema Neuro: A&O X4 cranial nerves II through XII are grossly intact no focal neuro deficits Skin: No obvious skin lesions or rashes Psych: Appropriate affect pleasant and cooperative Results & Data Results & Data ([facility]) Vital Signs (Past 12 Hours) Vital Signs Temp Pulse Resp BP Pulse Ox 04/13/21 16:14 36.8 C 86 18 131/60 100 04/13/21 07:28 36.8 C 84 16 145/75 H 98 Laboratory Results 04/13/21 06:15 04/13/21 06:15 PG Care Time/CCT Total # of Minutes Spent Total Time Spent with Patient: Total time spent is greater than 50% in coordination of care (as documented) at patient's floor/unit and/or counseling p atient: Coding [place] [address] Subseq Hosp Care Lvl 3 Patient Type Established History Comprehensive Exam Comprehensive Medical Decision Making High Complexity Diagnoses Epistaxis R04.0 Anemia D64.9 Atrial fibrillation I48.91 Hx of myocardial infarction I25.2 Hypertension I10 Hypertension type: essential hypertension (1) Hypertension Hypertension type: essential hypertension Qualified Code(s): I10 - Essential (primary) hypertension
--- NOTE | 2021-04-13 18:10 | Operative Report ---
PG Post Operative Report Pre & Post Diagnosis Operation Date: 04/13/21 17:05 Pre-Op Diagnosis: Epistaxis Post-Op Diagnosis: Epistaxis I identified the patient and participated in the time-out.: Yes Procedure Operation Date: 04/13/21 17:05 Actual Procedures p Cauterization and Packing Nasal Bleed - Kelli Davis MD Surgeon Kelli Davis MD Claim Examiner None Estimated Blood Loss 30 Findings Consistent with Post-Op Diagnosis Bleeding site left mid septum Specimens None Anesthesia Type Local Indications Left-sided epistaxis Description of Procedure She was brought to the operating room, properly identified, prepped and draped in the usual sterile manner. The nose was anesthetized using topical tetracaine/epinephrine on cottonoids. I then used injection of 2% Xylocaine with 1-100,000 strength epinephrine at the left mid septum after identifying the bleeding site. This was cauterized using the 8 Tongan suction cautery. There was another site of bleeding inferiorly below a septal spur. Posterior packing was started with a strip of Gelfoam at the posterior choana. FloSeal was layered on top of this Gelfoam strip. Another strip of Gelfoam was placed anteriorly to block the FloSeal from coming out too quickly. She tolerated pr ocedure well was taken recovery area in satisfactory condition. I attest to the content of the Intraoperative Record and any orders documented therein. Any exceptions are noted below.
--- NOTE | 2021-04-13 19:04 | Anesthesiology Progress Note ---
Date of Service April 13, 2021 Anesthesia Post Procedure Vital Signs Vital Signs: Temp Pulse Pulse Resp BP BP Pulse Ox 04/13/21 18:38 36.6 C 94 H 18 134/70 98 04/13/21 18:15 85 20 124/72 98 04/13/21 18:05 36.9 C 96 H 18 127/79 100 04/13/21 17:55 37.4 C 99 H 16 134/76 94 04/13/21 17:45 37.2 C 95 H 16 99/60 L 100 04/13/21 16:14 36.8 C 86 18 131/60 100 04/13/21 07:28 36.8 C 84 16 145/75 H 98 04/13/21 02:23 36.5 C 85 16 143/80 H 97 04/13/21 01:38 88 18 142/80 H 98 04/13/21 00:45 36.6 C 76 18 138/77 98 04/12/21 23:00 76 132/58 L 98 04/12/21 22:03 80 151/76 H 93 04/12/21 20:16 78 18 142/62 H 97 Pain Intensity Lower Back: Pain Intensity: 3 Transfer of Care Handoff Completed per policy Notes Mental Status: alert / awake / arousable and participated in evaluation Patient Amnestic to Procedure: Yes Nausea / Vomiting: adequately controlled Pain: adequately controlled Airway Patency, RR, SpO2: stable & adequate BP & HR: stable & adequate Hydration State: stable & adequate Anesthetic Complications: no major complications apparent and Pt Satisfied with anesthetic care
[2021-04-13] MEDS ORDERED: COUGH DROP (SUGAR FREE) LOZ 24 LOZ/1 BOX BUCCAL PRN (19:31)
[2021-04-13 20:18] LABS: Hematocrit (blood only) 29.3 % (37-47); Hemoglobin 9.1 g/dL (12.0-16.0)
[2021-04-13] MEDS ORDERED: APIXABAN 2.5 MG TAB PO SCH (21:00)
--- NOTE | 2021-04-13 23:38 | Billing Data ---
Date of Service April 13, 2021 Coding Level of Care Code INT OBSERVATION CARE 70M LVL 3
[2021-04-14] MEDS: ACETAMINOPHEN 325 MG TAB PO PRN ×2 (05:52→13:48)
[2021-04-14] MEDS: LEVOTHYROXINE SODIUM 112 MCG TABLET PO SCH (05:52)
[2021-04-14 07:19] LABS: Hematocrit (blood only) 25.9 % (37-47); Hemoglobin 8.2 g/dL (12.0-16.0); Mean Corpuscular Hemoglobin 30.5 pg (25-34); Mean Corpuscular Hgb Conc 31.7 g/dL (32-36); Mean Corpuscular Volume 96.3 fL (80-100); Mean Platelet Volume 9.6 fL (7.4-10.4); Platelet Count 113 K/uL (130-400); RDW Coefficient of Variation 18.5 % (11.5-14.5); RDW Standard Deviation 64.4 fL (36.4-46.3); Red Blood Count 2.69 M/uL (4.2-5.4); White Blood Count 5.08 K/uL (4.8-10.8)
[2021-04-14] MEDS: oxyCODONE HCL IR 5 MG TAB (IMMEDIATE RELEASE) PO PRN ×2 (07:30→16:45)
[2021-04-14] MEDS: GABAPENTIN 100 MG CAP PO SCH (07:31)
[2021-04-14] MEDS: SENNA 8.6 MG TAB PO SCH (07:31)
[2021-04-14] MEDS ORDERED: IRON SUCROSE 300 MG in SODIUM CHLORIDE 0.9% 250 ML IV ONE (09:15)
[2021-04-14 14:08] LABS: Hematocrit (blood only) 26.9 % (37-47); Hemoglobin 8.6 g/dL (12.0-16.0); Mean Corpuscular Hemoglobin 30.6 pg (25-34); Mean Corpuscular Volume 95.7 fL (80-100); Mean Platelet Volume 9.9 fL (7.4-10.4); Platelet Count 127 K/uL (130-400); RDW Coefficient of Variation 18.5 % (11.5-14.5); RDW Standard Deviation 63.2 fL (36.4-46.3); Red Blood Count 2.81 M/uL (4.2-5.4); White Blood Count 4.92 K/uL (4.8-10.8)
--- NOTE | 2021-04-14 14:42 | Discharge Summary ---
Date of Service April 14, 2021 Admission HPI Per Admitting Provider Ale Escobedo is an 85-year-old female with past medical significant for hypertension, hyperlipidemia, atrial fib patient, tricuspid & mitral valve insufficiency; who presents for a day of persistent nosebleed while on Eliquis. Nosebleed started earlier today out of nowhere. Does not recall any specific trauma or blowing her nose over the day. Throughout the afternoon was having to utilize multiple tissues in order to stop the bleeding and ultimately did have it settle down for a short period of time before it restarted late this evening. When family came over and nose was bleeding EMS was called for assistance at which time on the arrival of EMS she was feeling more lightheaded and nauseous and had a brief period of hypotension. Upon arrival to the ED had return of normal mental status as well as improvement in her vital signs. Was continuing to have bleeding from her left nostril, this is causing her to feel uncomfortable with the idea of going back home given the total amount of time she had a nosebleed. At this time denies chest pain, shortness of breath, palpitations, abdominal pain, nausea, vomiting, lightheadedness, dizziness, fatigue, or weakness Principal Diagnosis 1. Epistaxis 2. Chronic anticoagulation therapy for A. fib 3. Anemia from acute blood loss Discharge Exam General: Resting comfortably in her hospital bed. NAD. HEENT: Head is AT/NC buccal mucosa is moist and pink. Nasal packing to left nares. No active bleeding Neck: No JVD. Negative hepatojugular reflex Cardiac: Irregularly irregular with controlled ventricular rate Lungs: CTA without W/R/R Abdomen: Normoactive X4. Soft and nontender in all quadrants. Extremities: No peripheral clubbing cyanosis or edema Neuro: A&O X4 cranial nerves II through XII are grossly intact no focal neuro deficits Skin: No obvious skin lesions or rashes Psych: Appropriate affect pleasant and cooperative Discharge Data Allergies Allergy/AdvReac Type Severity Reaction Status Date / Time doxycycline AdvReac nauseated Verified 04/12/21 23:19 Consultations 04/12/21 23:10 ED Decision to Admit Stat 04/13/21 12:21 Consult Otolaryngology (Head and Neck) Routine Description of Procedure She was brought to the operating room, properly identified, prepped and draped in the usual sterile manner. The nose was anesthetized using topical tetracaine/epinephrine on cottonoids. I then used injection of 2% Xylocaine with 1-100,000 strength epinephrine at the left mid septum after identifying the bleeding site. This was cauterized using the 8 Nepali suction cautery. There was another site of bleeding inferiorly below a septal spur. Posterior packing was started with a strip of Gelfoam at the posterior choana. FloSeal was layered on top of this Gelfoam strip. Another strip of Gelfoam was placed anteriorly to block the FloSeal from coming out too quickly. She tolerated procedure well was taken recovery area in satisfactory condition. I attest to the content of the Intraoperative Record and any orders documented therein. Any exceptions are noted below. Procedures Performed Operation Date: 04/13/21 17:05 Actual Procedures p Cauterization and Packing Nasal Bleed - Kelli Davis MD Hospital Course (1) Epistaxis: -Persistent epistaxis in the setting of chronic anticoagulation therapy and aspirin -Initially had nasal rocket in place but inadvertently removed. -Bleeding restarted from bilateral nares. -Patient was refusing reinsertion of nasal rocket. 12 given bilateral bleed. 2 sprays of Afrin to bilateral nares to help with vasoconstriction and nasal clamp placed. This seemed to control the bleeding -ENT consulted and patient taken to the OR for cautery -Eliquis and aspirin held -POD #1, patient mirella hemodynamically stable. Spoke with ENT who reports nasal packing will dissolve over time. No need for specific follow-up care. (2) Anemia: -Patient with a 3 g drop in her hemoglobin since 03/21 (11.7 --> 9.6 --> 8.2--> 8.6) -Patient hemodynamically stable. H&H stable since epistaxis resolved/cautery performed -Eliquis and aspirin have been held -IV Venofer X1 dose provided while in house -Recommend patient continue holding these for at least 2 weeks. Can address with PCP at follow-up on Sunday -Would advise follow-up CBC to trendat discretion of PCP -Patient has a [id number] 2 score of 5. Has bled score of 4. May benefit from resumption of anticoagulation therapy in the future but would advise against aspirin and Eliquis. May consider total discontinuation of Eliquis altogether given unprovoked epistaxis causing anemia. This is at the discretion of PCP -Unfortunately, without anticoagulation therapy patient is at risk for stroke. Benefit of anticoagulation therapy currently does not outweigh the risk (3) Atrial fibrillation: -Currently with controlled rate -Continue to hold Eliquis as outlined above (4) Hyperlipidemia: -No medications on board for. At her age, limited benefit from statin therapy (5) Hypothyroidism: -Continue Synthroid -Plan of care discussed with Dr. Montemayor and Dr. Davis -Daughter updated -Plan is to discharge to home with visiting nurses for patient follow-up and med management. Patient and daughter are agreeable and on board with this plan Home Health Attestation I certify that this patient is under my care and that I, or a physicians fiscal assistant working with me, had a face to-face encounter that meets the home health [id number] encounter requirements with this patient. The encounter with the patient was in whole, or in part, for the following medical condition, which is the primary reason for home health care (list medical condition): Anemia I certify that, based on my findings, the following services are medically necessary home health services: My clinical findings support the need for the above services because: PT Gait and Balance Training, Strengthening and Safety Skilled Nsg Assessment Skilled Nsg Assess Pt Illness, Disease and Sx Monitoring Further, I certify that my clinical findings support that this patient is homebound (i.e. absences from home require considerable and taxing effort and are for medical reasons or faith services or infrequently or of short duration when for other reasons) because: Transportation Assistance/Unable to Leave Home Unassisted Certification for Home Health Services: Based on the above findings, I certify that this patient is confined to the home and needs intermittent long-term care, physical therapy and/or speech therapy or continues to need occupational therapy. The patient is under my care, and I have initiated the establishment of the plan of care. This patient will be followed by a physician who will periodically review the plan of care. Total Time Total Time Spent Total Time Spent (In Minutes): 60 minutes including review of chart, time spent with patient, and discussion with specialist and attending physician along with updating daughter Discharge Plan Discharge Items Patient Disposition: Home - Home Health Services Reason For Visit: NOSEBLEED ON ELIQUIS Discharge Diagnosis: 1. Epistaxis (nosebleed) on Eliquis-- s/p cautery 2. Blood Loss Anemia Condition on Discharge: Good Activity: As commented below Activity Comment: as tolerated Non-emergency contact: Primary Care Provider Call non-emergency contact if: you have any medication questions and your symptoms worsen Follow-up/Referrals: Lorenza Armendariz CRNP [Primary Care Provider] - 04/19/21 2:00 pm Diet: Regular Addtl Attending Provider Instructions: - HOLD ASPIRIN AND ELIQUIS!! (do not take either of these medications) - I would advise holding for at least 2 weeks - Would suggest FU labs (CBC) to trend blood count-- at discretion of PCP - In 2 weeks time, can consider resumption of Eliquis or ASA but definitely would advise AGAINST taking both - LEAVE THE NASAL PACKING IN PLACE-- it will dissolve on it's own - DO not pick at the nasal packing. Avoid blowing your nose. - avoid using your calcitonin nasal spray for now (avoid anything in the nose with nasal packing in place) - may consider a humidifier to moisturize the air and decrease risk of your nose getting dry and bleeding - Recommend an IRON SUPPLEMENT for 30 days (this can be purchased over the counter) - Iron can be constipating. Remain on your bowel regimen - Avoid taking iron (as this can block the absorption) with dairy and take with vitamin C (to help with absorption) - Follow up with your PCP on Sunday as scheduled - Return to the ED for new or worsening symptoms Pending Studies at Discharge: No Stand-Alone Forms: My [facility] Medications and DC Order Prescriptions: Continued nitroglycerin 0.4 mg tablet, sublingual 0.4 mg SL UD PRN (Reason: Chest Pain) RF: 0 docusate sodium 100 mg capsule 100 mg PO DAILY PRN (Reason: Constipation) RF: 0 multivitamin tablet 1 tab PO DAILY RF: 0 levothyroxine 112 mcg tablet 112 mcg PO DAILY RF: 0 oxycodone 5 mg Tablet 10 mg PO Q6H PRN (Reason: pain (scale score 4-6)) Qty: 10 RF: 0 celecoxib [Celebrex] 100 mg Capsule 100 mg PO DAILY Qty: 30 RF: 0 gabapentin 100 mg Capsule 100 mg PO BID Qty: 30 RF: 0 sennosides [Senokot] 8.6 mg Tablet 17.2 mg PO QAM Qty: 30 RF: 0 acetaminophen [Tylenol Extra Strength] 500 mg tablet 1,000 mg PO DIRECTED PRN (Reason: Pain) RF: 0 lidocaine 5 % adhesive patch,medicated 1 patch transdermal QPM PRN (Reason: Pain) RF: 0 Discontinued Eliquis 2.5 mg tablet 2.5 mg PO BID Qty: 180 RF: 3 aspirin [Aspirin Low Dose] 81 mg Tablet,Delayed Release (Dr/Ec) 81 mg PO DAILY RF: 0 calcitonin (salmon) 200 unit/actuation [place],Non-Aerosol 1 spray NA DAILY Qty: 3.7 RF: 0 Discharge Orders: Discharge Order (Routine); Ordered 04/14/21 Ordered By: Phyllis Gould/Other Patient Handouts: Anemia, ED Epistaxis (Adult) Admission Data Admit Date/Time: 04/12/21 23:40 Attending Provider: Antony Montemayor Admit Provider: Jef Rodriguez Primary Care Provider: Lorenza Armendariz Other Providers: Antony Montemayor ; [facility] ; Homero Ma ; Kelli Davis How Other Interventions: Discharge Summary Assessment (RN) Last Done: 04/14/21 15:06 Supervising Physician Co-Signing Physician Notes I supervised Phyllis Mullen PA-C on the care of this patient. I interviewed and examined the patient independently of her. The plan is as written in her note except for any following changes/exceptions: None Doing well today after surgery. No further bleeding. Ready for discharge. Coding [place] [address] OBS Care - Discharge Patient Type Established Diagnoses Epistaxis R04.0 Atrial fibrillation I48.91 Anemia D64.9 Hyperlipidemia E78.5 Hyperlipidemia type: unspecified Hypothyroidism E03.9 Hypothyroidism type: unspecified
== END 2021-04-14 18:22 | disposition home health service (06) ==
LOC: 3E 18:31 → ED 18:31 → SUATTDRO 23:40 → 3E 04-13 01:45

== ENCOUNTER 2022-05-07 22:22 | Observation (INO) ==
[2022-05-07] MEDS ORDERED: TXA 10% Non-IV Routes 100 MG/ML VIAL ONE (22:33)
[2022-05-07] MEDS ORDERED: TXA 10% Non-IV Routes 100 MG/ML VIAL TOP ONE (22:50)
[2022-05-07] MEDS ORDERED: cephALEXin 250 MG CAP PO ONE (23:33)
--- NOTE | 2022-05-08 00:22 | Emergency Department Note ---
History of Present Illness General Chief complaint: Nose Bleed (Minor) Time Seen by Provider: 05/07/22 22:25 History of Present Illness This 86-year-old with history of recurrent epistaxis presents to the ER comp laining of epistaxis who is feeling weak Location: Left nostril Quality: Bleeding Severity: Moderate Duration: Today Timing: Today Context: Family was concerned and brought the patient in Modifying factors: better with pressure; worse with activity This is recurrent for the patient. She has had numerous cauterizations. Now she is feeling weak. She takes a baby aspirin. Patient denies chest pain, dyspnea, vomiting, diarrhea. Patient is actively bleeding out of the last nostril Home Medications Medication Instructions Recorded Confirmed Type nitroglycerin 0.4 mg sublingual 0.4 mg sublingual UD PRN Chest Pain 11/22/18 04/19/21 History tablet multivitamin 1 tab PO DAILY 12/17/18 04/19/21 History sennosides 8.6 mg tablet (Senokot) 17.2 mg PO QAM #30 tabs 03/22/21 04/19/21 Rx acetaminophen 500 mg tablet 1,000 mg PO DIRECTED Pain 04/19/21 04/19/21 History (Tylenol Extra Strength) docusate sodium 100 mg capsule 100 mg PO TID Constipation 04/19/21 04/19/21 History gabapentin 100 mg capsule 100 mg PO BID #180 caps 04/19/21 04/19/21 Rx levothyroxine 112 mcg tablet 112 mcg PO DAILY #90 tabs 04/19/21 Rx oxycodone 10 mg tablet 10 mg PO Q6H PRN pain (scale score 04/19/21 04/19/21 Rx 4-6) #90 tabs tramadol 50 mg tablet 50 mg PO QID PRN pain #120 tabs 04/19/21 04/19/21 Rx cephalexin 250 mg capsule 250 mg PO Q6H #12 caps 05/08/22 Rx furosemide 20 mg tablet 20 mg PO Q2D #90 tabs 05/08/22 Rx sodium chloride 0.65 % nasal spray 1 spray intranasal QID #44 mL 05/08/22 Rx aerosol (Saline Mist) Allergies Allergy/AdvReac Type Severity Reaction Status Date / Time doxycycline AdvReac nauseated Verified 04/19/21 13:54 Past Med/Surg History Medical History Atrial fibrillation CAD (coronary artery disease) NSTEMI, s/p proximal LAD stent in 2011 Compression fracture of L1 lumbar vertebra Coronary artery disease Encounter for pre-operative examination Epistaxis Hx of myocardial infarction Hyperlipidemia Hypertension Hypothyroidism Peripheral edema Pseudogout of right wrist Pseudogout of right wrist Severe aortic stenosis Severe mitral insufficiency Severe tricuspid valve insufficiency Thrombocytopenia Surgical History H/O bilateral hip replacements H/O neck surgery History of cataract surgery Family History Father Lung disease Sister Diabetes Breast cancer Other Heart disease Denies family history of Ovarian cancer Prostate cancer Coronary heart disease Colorectal cancer Cancer Social History Smoking Status: Never smoker Second Hand Exposure: No; Hx Alcohol Use: No Hx Substance Use: No Preferred Language: Eritrean Communication Ability: Effective Visual Impairment: No Limitations Hearing Ability: Normal Consumer Insight Manager Required: No Beliefs That Will Affect Care: None marital status: / Current Living Situation: Alone Current Living Situation Comment: daughter lives close by current occupational status: retired How many Children do You have: 3 Feels Safe at Home: Yes Childhood Exposure to Second-Hand Smoke: Yes caffeine: Yes Dental Care, Regularly: No Physical Activity Frequency: Does not Exercise Seatbelt Use: always Sunscreen Use: Yes Assistive Devices: Walker Review of Systems A total of 10 systems reviewed and were otherwise negative Physical Exam Vital Signs Vital Signs - 24 hr 05/07/22 22:16 05/08/22 00:03 Temperature 36.8 C Temperature Source Oral Pulse Rate 70 Pulse Rate [Finger] 67 Respiratory Rate 18 16 Respiratory Effort / Characteristics Non-Labored Spontaneous Respiratory Depth Normal Blood Pressure 149/75 H Blood Pressure [Right Arm] 163/86 H Blood Pressure Mean 99 Blood Pressure Mean [Right Arm] 111 Pulse Oximetry 97 99 Oxygen Delivery Method Room Air Room Air Sepsis New/Unexplained Change in Mental Status N/A Sepsis Action Taken by Nursing No Action Required VITALS: Vitals are noted on the nurse's note and reviewed by myself. Vital signs reviewed. GENERAL: Elderly female actively bleeding out of the left nostril, in no acute distress, nondiaphoretic, well-developed well-nourished. SKIN: The skin was without rashes, erythema, edema, or bruising. There is no tenting of the skin. Capillary reflex less than 2 seconds. HEAD: Normocephalic atraumatic. EARS: External auditory canals clear, tympanic membranes pearly fox without erythema or effusion bilaterally. EYES: Pupils equal round and reactive to light and accommodation. Conjunctivae without injection, sclerae without icterus. Extraocular movements intact. NOSE: Patent, copious amount of blood in the left nostril, no septal hematoma, right nostril without active bleeding. MOUTH: Mucous membranes moist. Pharynx without erythema or exudate. Uvula midline. Airway patent. Tongue does not deviate. Blood in the back of the pharynx. NECK: Supple without nuchal rigidity. No lymphadenopathy. No thyromegaly. Cervical spine is nontender. No JVD. HEART: Regular rate and rhythm LUNGS: Clear to auscultation bilaterally without wheezes, rales or rhonchi. No retractions or accessory muscle use. ABDOMEN: Positive bowel sounds x 4. Normal tympanic percussion. Soft, nontender, without masses or organomegaly. Hanna sign negative. No guarding or rebound tenderness. No CVA tenderness MUSCULOSKELETAL: No muscle atrophy, erythema, or edema noted. NEURO: Patient was alert and oriented to person place and time. Normal sensation to light and sharp touch. No focal neurological deficits. Course Administered Medications Discontinued Medications Acetaminophen (Acetaminophen 325 Mg Tab) 650 mg PO Q4H PRN PRN Reason: pain/fever Stop: 06/07/22 03:10 Last Admin: 05/08/22 11:06 Dose: 650 mg Documented By: SHIRA Cephalexin HCl (Cephalexin 250 Mg Cap) 500 mg PO NOW ONE Stop: 05/07/22 23:34 Last Admin: 05/08/22 00:15 Dose: 500 mg Documented By: ENRIQUETA Docusate Sodium (Docusate Sodium 100 Mg Cap) 100 mg PO TID [facility] Stop: 06/07/22 08:59 Last Admin: 05/08/22 13:55 Dose: Not Given Documented By: Admin: 05/08/22 08:06 Dose: Not Given Documented By: SHIRA Furosemide (Furosemide 20 Mg Tab) 20 mg PO DAILY NADEGE Stop: 06/07/22 08:59 Last Admin: 05/08/22 08:06 Dose: 20 mg Documented By: TASHAN Gabapentin (Gabapentin 100 Mg Cap) 100 mg PO BID NADEGE Stop: 06/07/22 08:59 Last Admin: 05/08/22 08:06 Dose: 100 mg Documented By: DLN Levothyroxine Sodium (Levothyroxine Sodium 112 Mcg Tablet) 112 mcg PO DAILYBB NADEGE Stop: 06/07/22 06:29 Last Admin: 05/08/22 06:17 Dose: 112 mcg Documented By: CF Oxymetazoline HCl (Oxymetazoline 0.05% 30 Ml Btl) 1 sprays NA NOW ONE Stop: 05/08/22 03:12 Last Admin: 05/08/22 06:47 Dose: Not Given Documented By: CF Sennosides (Senna 8.6 Mg Tab) 17.2 mg PO QAM NADEGE Stop: 06/07/22 08:59 Last Admin: 05/08/22 08:07 Dose: Not Given Documented By: TASHAN Tranexamic Acid (Txa 10% Non-Iv Routes 100 Mg/Ml Vial) Confirm Administered Dose 1,000 mg .ROUTE .STK-MED ONE Stop: 05/07/22 22:34 Last Admin: 05/07/22 22:55 Dose: Not Given Documented By: KML Tranexamic Acid (Txa 10% Non-Iv Routes 100 Mg/Ml Vial) 1,000 mg TOP ONE ONE Stop: 05/07/22 22:51 Last Admin: 05/07/22 22:54 Dose: 1,000 mg Documented By: [id number] Medical Decision Making Medical Records Attestation: I reviewed the patient's medical records. Home Medications Current Medication List: was personally reviewed by me Laboratory Data Attestation: I reviewed the patient's lab results. Result diagrams: 05/07/22 23:56 05/07/22 23:56 Lab Results 05/07/22 05/07/22 05/07/22 Range/Units 23:42 23:56 23:56 WBC 6.89 (4.8-10.8) K/ul RBC 4.18 (3.93-5.22) M/uL Hgb 12.7 (12.0-16.0) g/dl Hct 38.9 (34.1-44.9) % MCV 93.1 (80.0-100.0) fL MCH 30.4 (25.0-34.0) pg MCHC 32.6 (32.0-36.0) g/dL RDW Std Deviation 54.7 H (36.4-46.3) fL RDW Coeff of Steve 16.2 H (11.5-14.5) % Plt Count 127 L (130-400) K/uL MPV 10.4 (9.4-12.3) fL Immature Gran % (Auto) 0.3 % Neut % (Auto) 56.3 % Lymph % (Auto) 29.3 % [place] % (Auto) 11.2 % Eos % (Auto) 2.2 % Baso % (Auto) 0.7 % Neut # (Auto) 3.88 (1.4-6.5) K/uL Lymph # (Auto) 2.02 (1.2-3.4) K/uL [place] # (Auto) 0.77 (0.24-0.82) K/uL Eos # (Auto) 0.15 (0-0.50) K/uL Baso # (Auto) 0.05 (0-0.2) K/uL Immature Gran # (Auto) 0.02 (0.00-0.02) K/uL Ovalocytes 1+ Echinocytes 1+ PT 11.8 (9.0-12.0) Seconds INR 1.1 (0.9-1.1) Sodium (136-145) mmol/L Potassium (3.5-5.1) mmol/L Chloride (98-107) mmol/L Carbon Dioxide (21-32) mmol/L Anion Gap (3-11) BUN (6-23) mg/dl Creatinine (0.6-1.2) mg/dl Est Cr Clr Drug Dosing ml/min Est GFR ( Amer) ml/min Est GFR (Non-Af Amer) ml/min BUN/Creatinine Ratio (10-20) Glucose (70-99(Fasting)) mg/dl Calcium (8.5-10.1) mg/dl Magnesium (1.7-2.4) mg/dl Total Bilirubin (0.2-1.0) mg/dl AST (13-39) U/L ALT (7-52) U/L Alkaline Phosphatase (34-104) U/L Troponin I High Sens (0-14) pg/ml Total Protein (6.0-8.3) gm/dl Albumin (3.4-5.0) gm/dl Globulin (2.5-4.0) gm/dl Albumin/Globulin Ratio (0.9-2) TSH (0.300-4.500) uIu/ml SARS-CoV-2, RNA, NAAT NEGATIVE (NEGATIVE) 05/07/22 05/07/22 Range/Units 23:56 23:56 WBC (4.8-10.8) K/ul RBC (3.93-5.22) M/uL Hgb (12.0-16.0) g/dl Hct (34.1-44.9) % MCV (80.0-100.0) fL MCH (25.0-34.0) pg MCHC (32.0-36.0) g/dL RDW Std Deviation (36.4-46.3) fL RDW Coeff of Steve (11.5-14.5) % Plt Count (130-400) K/uL MPV (9.4-12.3) fL Immature Gran % (Auto) % Neut % (Auto) % Lymph % (Auto) % [place] % (Auto) % Eos % (Auto) % Baso % (Auto) % Neut # (Auto) (1.4-6.5) K/uL Lymph # (Auto) (1.2-3.4) K/uL [place] # (Auto) (0.24-0.82) K/uL Eos # (Auto) (0-0.50) K/uL Baso # (Auto) (0-0.2) K/uL Immature Gran # (Auto) (0.00-0.02) K/uL Ovalocytes Echinocytes PT (9.0-12.0) Seconds INR (0.9-1.1) Sodium 137 (136-145) mmol/L Potassium 4.2 (3.5-5.1) mmol/L Chloride 107 (98-107) mmol/L Carbon Dioxide 23 (21-32) mmol/L Anion Gap 7 (3-11) BUN 24 H (6-23) mg/dl Creatinine 0.85 (0.6-1.2) mg/dl Est Cr Clr Drug Dosing 43.7 ml/min Est GFR ( Amer) 71.4 ml/min Est GFR (Non-Af Amer) 61.6 ml/min BUN/Creatinine Ratio 28.2 H (10-20) Glucose 107 H (70-99(Fasting)) mg/dl Calcium 9.9 (8.5-10.1) mg/dl Magnesium 2.0 (1.7-2.4) mg/dl Total Bilirubin 0.8 (0.2-1.0) mg/dl AST 22 (13-39) U/L ALT 6 L (7-52) U/L Alkaline Phosphatase 93 (34-104) U/L Troponin I High Sens 22.1 H (0-14) pg/ml Total Protein 8.1 (6.0-8.3) gm/dl Albumin 4.2 (3.4-5.0) gm/dl Globulin 3.9 (2.5-4.0) gm/dl Albumin/Globulin Ratio 1.1 (0.9-2) TSH 1.058 (0.300-4.500) uIu/ml SARS-CoV-2, RNA, NAAT (NEGATIVE) Imaging Data Attestation: I personally reviewed and interpreted this imaging study as follo ws: MDM Narrative Prior records/ancillary studies reviewed. Triage Nursing notes reviewed. Additional history obtained from family. The patient's history was concerning for epistaxis and feeling weak. Differential diagnosis: Etiologies such as anterior epistaxis, coagulopathy, traumatic injury, fracture, septal hematoma, posterior epistaxis as well as other pathologies were entertained. Physical examination findings: As above. Anterior bleeding source. ER treatment provided: Direct pressure Intranasal TXA Anterior Nasal Packing Indication: Nosebleed Verbal consent obtained. I did the procedure. Risks and benefits were explained with the usual customary discussion. A time out was taken. Clots were removed with suction. The left naris was prepped with Afrin and lidocaine. A 5.5-cm nasal balloon was placed in a standard fashion. 2 cc of air was used to inflate the balloon. The patient tolerated this well. Hemostasis was achieved. No complications. Anterior nasal packing as above Keflex icillin PO On reassessment the patient felt better. Diagnostics interpreted by me: EKG ordered for weakness EKG: Normal sinus, normal intervals, no acute ST-T wave changes. Impression normal sinus rhythm interpreted by myself I think arrhythmia is unlikely. EKG shows normal sinus rhythm with no interval abnormalities such as QT prolongation or WPW. There are no findings to suggest Brugada syndrome. Cardiac monitoring in the emergency department reveals no tachycardic or bradycardic dysrhythmia. Hypertrophic cardiomyopathy was considered but there are no clear historical elements pointing toward this. EKG is not suggestive. The QRS voltage is not extremely large and there are no suggestive Q waves. The labs revealed elevated troponin Stable H&H Consultation: A consultation was placed with hospitalist. The case was discussed and diagnostics were reviewed. The patient was evaluated in the ER for further tr eatment. This appears to be consistent with epistaxis he was feeling quite weak. Family is requesting admission. Medicine was consulted. They will be evaluated for possible admission. By the evaluation outlined above emergent etiologies such as coagulopathy, traumatic injury, fracture, septal hematoma, posterior epistaxis, as well as others were deemed relatively unlikely. The patient and family informed about the findings as listed above. All questions were answered and pleased with the treatment. The chart was completed utilizing [employer] Speech voice recognition software. Gr ammatical errors, random word insertions, pronoun errors, and incomplete sentences are an occassional consequence of this system due to software limitations, ambient noise, and hardware issues. Any formal questions or concerns about the content, text, or information contained within the body of this dictation should be directly addressed to the physician administrative assistant data entry for clarification. Impression & Plan Acute anterior epistaxis, Weakness, Elevated troponin Discharge Plan Visit Data Chief Complaint: Nose Bleed (Minor) ED Provider: Johnathon Castaneda ED Midlevel Provider: Bianca Anthony Discharge Problem: Acute anterior epistaxis, Weakness, Elevated troponin Patient Disposition: Admitted As Inpatient Condition: Fair Discharge Instructions Interventions: ED Discharge Assessment Last Done: 05/08/22 03:06
[2022-05-08 00:25] LABS: INR 1.1 (0.9-1.1); Prothrombin Time 11.8 Seconds (9.0-12.0)
[2022-05-08 00:42] LABS: Troponin I High Sensitivity 22.1 pg/ml (0-14)
[2022-05-08 00:48] LABS: Albumin Globulin Ratio 1.1 (0.9-2); Albumin Level 4.2 gm/dl (3.4-5.0); BUN Creatinine Ratio 28.2 (10-20); Bilirubin,Total 0.8 mg/dl (0.2-1.0); Calcium 9.9 mg/dl (8.5-10.1); Creatinine Clr Calc Pharmacy 43.7 ml/min; Est GFR (African American) 71.4 ml/min; Est GFR (Non-African American) 61.6 ml/min; Globulin 3.9 gm/dl (2.5-4.0); Potassium 4.2 mmol/L (3.5-5.1); Total Protein 8.1 gm/dl (6.0-8.3)
[2022-05-08 01:17] LABS: Basophils # (auto) 0.05 K/uL (0-0.2); Basophils % (auto) 0.7 %; Echinocytes 1+; Eosinophils # (auto) 0.15 K/uL (0-0.50); Eosinophils % (auto) 2.2 %; Hematocrit (blood only) 38.9 % (34.1-44.9); Hemoglobin 12.7 g/dl (12.0-16.0); Immature Granulocytes # (auto) 0.02 K/uL (0.00-0.02); Immature Granulocytes % (auto) 0.3 %; Lymphocytes # (auto) 2.02 K/uL (1.2-3.4); Lymphocytes % (auto) 29.3 %; Mean Corpuscular Hemoglobin 30.4 pg (25.0-34.0); Mean Corpuscular Hgb Conc 32.6 g/dL (32.0-36.0); Mean Corpuscular Volume 93.1 fL (80.0-100.0); Mean Platelet Volume 10.4 fL (9.4-12.3); Monocytes # (auto) 0.77 K/uL (0.24-0.82); Monocytes % (auto) 11.2 %; Neutrophils # (auto) 3.88 K/uL (1.4-6.5); Neutrophils % (auto) 56.3 %; Ovalocytes 1+; Platelet Count 127 K/uL (130-400); RDW Coefficient of Variation 16.2 % (11.5-14.5); RDW Standard Deviation 54.7 fL (36.4-46.3); Red Blood Count 4.18 M/uL (3.93-5.22); White Blood Count 6.89 K/ul (4.8-10.8)
--- NOTE | 2022-05-08 02:01 | History & Physical Report ---
Date of Service May 08, 2022 Assessment & Plan (1) Epistaxis: Plan: 86yo female with recurrent epistaxis. HD stable at present. H/H near baseline at 12.7/38.9. Hemostasis achieved with TXA and placement of a rhino-rocket -Monitor CBC -ENT consultation as needed -Afrin per nosebleed protocol PRN (2) Coronary artery disease: Plan: Patient with CAD -Hold ASA for now (3) Hypertension: Plan: Blood pressure mildly elevated. Patient is not presently on any anti- hypertensive agents. Presently 154/84 -Monitor BP (4) Hypothyroidism: Plan: Chronic. -Continue Synthroid (5) Atrial fibrillation: Plan: Rate controlled. No anticoagulation due to history of bleeding History of Present Illness Chief Complaint: Epistaxis Primary Care Provider: [facility] Ale Escobedo is an 86yo female with history of AF, CAD, HTN, HLP and severe presenting with recurrent epistaxis. Patient has experienced nosebleeds for years. She was hospitalized in March 2021 for persistent epistaxis that occurred while on Eliquis anticoagulation and ASA. During that episode she was treated with Afrin nasal spray, rhino rocket and ultimately taken to the OR for cautery with Dr. Davis. She had another episode of epistaxis in January 2022 - she was treated in the ER and discharged several times before the bleeding stopped. She was seen by ENT in clinic on 01/19/22. It was recommended that she use daily nasal irrigation, humidified air, vaseline and Oxymetazoline spray as needed for bleeding. She was doing these interventions at the half-way but they unfortunately ran out of Afrin. This afternoon around 16:30 the patient started having a nosebleed. Patient's daughter was contacted by the half-way around 18:00. Daughter brought some Afrin and Vaseline and pressure was applied in attempt to stop the bleeding w ithout resolve, therefore they came to the ER. In the ER patient was noted to have epistaxis from left nostril. Copious amount of blood noted in the left nostril with no septal hematoma. . She was treated with TXA an a rhino-rocket was placed. No further bleeding at this time Patient denies trauma or digital manipulation of her nose. She denies chest pain, cough, nausea. She does have some generalized weakness as well as persistent SOB and SCHNEIDER. No additional complaints at this time. ER Course: TXA, Cephalexin Allergies Allergy/AdvReac Type Severity Reaction Status Date / Time doxycycline AdvReac nauseated Verified 04/19/21 13:54 Home Medications Medication Instructions Recorded Confirmed Type nitroglycerin 0.4 mg sublingual 0.4 mg sublingual UD PRN Chest Pain 11/22/18 04/19/21 History tablet multivitamin 1 tab PO DAILY 12/17/18 04/19/21 History sennosides 8.6 mg tablet (Senokot) 17.2 mg PO QAM #30 tabs 03/22/21 04/19/21 Rx acetaminophen 500 mg tablet 1,000 mg PO DIRECTED Pain 04/19/21 04/19/21 History (Tylenol Extra Strength) aspirin 81 mg tablet,delayed 81 mg PO DAILY #30 tabs 04/19/21 04/19/21 Rx release celecoxib 100 mg capsule (Celebrex) 100 mg PO DAILY #90 caps 04/19/21 Rx docusate sodium 100 mg capsule 100 mg PO TID Constipation 04/19/21 04/19/21 History furosemide 20 mg tablet 20 mg PO DAILY #90 tabs 04/19/21 04/19/21 Rx gabapentin 100 mg capsule 100 mg PO BID #180 caps 04/19/21 04/19/21 Rx levothyroxine 112 mcg tablet 112 mcg PO DAILY #90 tabs 04/19/21 Rx oxycodone 10 mg tablet 10 mg PO Q6H PRN pain (scale score 04/19/21 04/19/21 Rx 4-6) #90 tabs tramadol 50 mg tablet 50 mg PO QID PRN pain #120 tabs 04/19/21 04/19/21 Rx Past Med/Surg History Medical History (Updated 05/08/22 @ 02:47 by Ingris Marley DO) Atrial fibrillation CAD (coronary artery disease) NSTEMI, s/p proximal LAD stent in 2010 Compression fracture of L1 lumbar vertebra Coronary artery disease Encounter for pre-operative examination Epistaxis Hx of myocardial infarction Hyperlipidemia Hypertension Hypothyroidism Peripheral edema Pseudogout of right wrist Pseudogout of right wrist Severe aortic stenosis Severe mitral insufficiency Severe tricuspid valve insufficiency Thrombocytopenia Surgical History H/O bilateral hip replacements H/O neck surgery History of cataract surgery Family History Father Lung disease Sister Diabetes Breast cancer Other Heart disease Denies family history of Ovarian cancer Prostate cancer Coronary heart disease Colorectal cancer Cancer Social History Smoking Status: Never smoker Second Hand Exposure: No; Hx Alcohol Use: No Hx Substance Use: No Preferred Language: Mexican Communication Ability: Effective Visual Impairment: No Limitations Hearing Ability: Normal Manufacturing Technology Analyst Required: No Beliefs That Will Affect Care: None marital status: / Current Living Situation: Alone Current Living Situation Comment: daughter lives close by current occupational status: retired How many Children do You have: 3 Feels Safe at Home: Yes Childhood Exposure to Second-Hand Smoke: Yes caffeine: Yes Dental Care, Regularly: No Physical Activity Frequency: Does not Exercise Seatbelt Use: always Sunscreen Use: Yes Assistive Devices: Denture - Upper and Walker Review of Systems Review of Systems: All systems reviewed & are unremarkable except as noted in HPI & below Physical Exam Physical Exam: General: frail appearing elderly patient resting comfortably, NAD, rhino-rocket present in left nare Skin: warm, dry, intact, no rashes or lesions HEENT: NC/AT, PERRL, EOMI, anicteric sclera, conjunctiva without injection, external ear normal to inspection and nontender, rhino rocket present in left nare, moist mucus membranes, dentition intact, no oropharyngeal lesions, no blood in the posterior pharynx, neck supple, trachea midline, no LAD, no thyromegaly, no JVD Heart: +S1/S2, regular, no m/r/g Lungs: equal air entry bilaterally, no rales/rhonchi/wheezes Abd: +BS, soft, NT/ND, no masses/organomegaly/ascites Ext: warm, 2+ pulses in UE/LE bilaterally, no clubbing/cyanosis or edema Neuro: nonfocal, patient AA&O x 4, speech intact, no facial droop, moving all extremities on command with equal strength 5/5 Results & Data Results & Data ([facility]) Vital Signs (Past 12 Hours) Vital Signs Temp Pulse Pulse Resp BP BP Pulse Ox 05/08/22 00:03 67 16 163/86 H 99 05/07/22 22:16 36.8 C 70 18 149/75 H 97 O2 Del Method 05/08/22 00:03 Room Air 05/07/22 22:16 Room Air Laboratory Results Laboratory Results WBC 6.89 K/ul (4.8-10.8) 05/07/22 23:56 RBC 4.18 M/uL (3.93-5.22) 05/07/22 23:56 Hgb 12.7 g/dl (12.0-16.0) 05/07/22 23:56 Hct 38.9 % (34.1-44.9) 05/07/22 23:56 MCV 93.1 fL (80.0-100.0) 05/07/22 23:56 MCH 30.4 pg (25.0-34.0) 05/07/22 23:56 MCHC 32.6 g/dL (32.0-36.0) 05/07/22 23:56 RDW Std Deviation 54.7 fL (36.4-46.3) H 05/07/22 23:56 RDW Coeff of Steve 16.2 % (11.5-14.5) H 05/07/22 23:56 Plt Count 127 K/uL (130-400) L 05/07/22 23:56 MPV 10.4 fL (9.4-12.3) 05/07/22 23:56 Immature Gran % (Auto) 0.3 % 05/07/22 23:56 Neut % (Auto) 56.3 % 05/07/22 23:56 Lymph % (Auto) 29.3 % 05/07/22 23:56 [place] % (Auto) 11.2 % 05/07/22 23:56 Eos % (Auto) 2.2 % 05/07/22 23:56 Baso % (Auto) 0.7 % 05/07/22 23:56 Neut # (Auto) 3.88 K/uL (1.4-6.5) 05/07/22 23:56 Lymph # (Auto) 2.02 K/uL (1.2-3.4) 05/07/22 23:56 [place] # (Auto) 0.77 K/uL (0.24-0.82) 05/07/22 23:56 Eos # (Auto) 0.15 K/uL (0-0.50) 05/07/22 23:56 Baso # (Auto) 0.05 K/uL (0-0.2) 05/07/22 23:56 Immature Gran # (Auto) 0.02 K/uL (0.00-0.02) 05/07/22 23:56 Ovalocytes 1+ 05/07/22 23:56 Echinocytes 1+ 05/07/22 23:56 PT 11.8 Seconds (9.0-12.0) 05/07/22 23:56 INR 1.1 (0.9-1.1) 05/07/22 23:56 Sodium 137 mmol/L (136-145) 05/07/22 23:56 Potassium 4.2 mmol/L (3.5-5.1) 05/07/22 23:56 Chloride 107 mmol/L (98-107) 05/07/22 23:56 Carbon Dioxide 23 mmol/L (21-32) 05/07/22 23:56 Anion Gap 7 (3-11) 05/07/22 23:56 BUN 24 mg/dl (6-23) H 05/07/22 23:56 Creatinine 0.85 mg/dl (0.6-1.2) 05/07/22 23:56 Est Cr Clr Drug Dosing 43.7 ml/min 05/07/22 23:56 Est GFR ( Amer) 71.4 ml/min 05/07/22 23:56 Est GFR (Non-Af Amer) 61.6 ml/min 05/07/22 23:56 BUN/Creatinine Ratio 28.2 (10-20) H 05/07/22 23:56 Glucose 107 mg/dl (70-99(Fasting)) H 05/07/22 23:56 Calcium 9.9 mg/dl (8.5-10.1) 05/07/22 23:56 Magnesium 2.0 mg/dl (1.7-2.4) 05/07/22 23:56 Total Bilirubin 0.8 mg/dl (0.2-1.0) 05/07/22 23:56 AST 22 U/L (13-39) 05/07/22 23:56 ALT 6 U/L (7-52) L 05/07/22 23:56 Alkaline Phosphatase 93 U/L (34-104) 05/07/22 23:56 Troponin I High Sens 22.1 pg/ml (0-14) H 05/07/22 23:56 Total Protein 8.1 gm/dl (6.0-8.3) 05/07/22 23:56 Albumin 4.2 gm/dl (3.4-5.0) 05/07/22 23:56 Globulin 3.9 gm/dl (2.5-4.0) 05/07/22 23:56 Albumin/Globulin Ratio 1.1 (0.9-2) 05/07/22 23:56 TSH 1.058 uIu/ml (0.300-4.500) 05/07/22 23:56 SARS-CoV-2, RNA, NAAT NEGATIVE (NEGATIVE) 05/07/22 23:42 Diagnostic Findings CXR - by my interpretation appears to have mild congestion PG Care Time/CCT Total # of Minutes Spent Total Time Spent with Patient: Total time spent is greater than 50% in coordination of care (as documented) at patient's floor/unit and/or counseling patient: Coding Diagnoses Epistaxis R04.0 Coronary artery disease I25.118 Coronary Disease-Associated Artery/Lesion type: resighini artery [place] vs. transplanted heart: resighini heart Associated angina: with stable angina Hypertension I10 Hypertension type: essential hypertension Hypothyroidism E03.9 Hypothyroidism type: unspecified Atrial fibrillation I48.91 (1) Hypertension Hypertension type: essential hypertension Qualified Code(s): I10 - Essential (primary) hypertension (2) Hypothyroidism Hypothyroidism type: unspecified Qualified Code(s): E03.9 - Hypothyroidism, unspecified (3) Coronary artery disease Coronary Disease-Associated Artery/Lesion type: resighini artery [place] vs. transplanted heart: resighini heart Associated angina: with stable angina Qualified Code(s): I25.118 - Atherosclerotic heart disease of resighini coronary artery with other forms of angina pectoris
[2022-05-08] MEDS ORDERED: OXYMETAZOLINE 0.05% 30 ML BTL ONE (03:11)
[2022-05-08] MEDS ORDERED: ACETAMINOPHEN 325 MG TAB PO PRN (03:11)
[2022-05-08] MEDS ORDERED: ONDANSETRON INJ 2 MG/ML 2 ML VIAL IV PRN (03:11)
[2022-05-08] MEDS ORDERED: traMADol HCL 50 MG TABLET PO PRN (03:38)
[2022-05-08] MEDS ORDERED: oxyCODONE HCL IR 5 MG TAB (IMMEDIATE RELEASE) PO PRN (03:38)
[2022-05-08] MEDS ORDERED: LEVOTHYROXINE SODIUM 112 MCG TABLET PO SCH (06:30)
--- NOTE | 2022-05-08 06:46 | Communication Note ---
Date of Service: May 08, 2022 yobany is currently working. loli Mayo one time dose order.
--- NOTE | 2022-05-08 07:58 | ENT Consultation ---
Date of Consultation May 08, 2022 Assessment & Plan (1) Acute anterior epistaxis: 86yF with L epistaxis requiring nasal packing, admitted with weakness and elevated troponin. Hb 12.7. No further bleeding since packing placed. -Cardiac workup per primary team -Keep nasal packing in place for 3-5 days (OK for d/c from hospital with rapid rhino) -Nasal saline spray QID to both nares -Would avoid baseline afrin at this time given good hemostasis and troponin bump -Keflex while packing in place -F/u for packing removal - [phone] History of Present Illness Reason for Consultation: L epistaxis Attending Physician: Ingris Marley DO History of Present Illness 86yF h/o CAD admitted with L epistaxis. Had some minor nosebleeds recently but yesterday could not stop epistaxis. Failed TXA and required nasal packing in ED. Admitted due to weakness with elevated troponin. No further bleeding. No prior history of epistaxis, nasal surgery, nasal trauma. No nasal regimen. On occasional ASA but no additional anticoagulants/antiplatelet agents. Plt 127, Hb 12.7 PMH/PSH: see below Meds: see below FH: noncontributory SH: see below, daughter involved with care ROS: negative except as noted above Allergies Allergy/AdvReac Type Severity Reaction Status Date / Time doxycycline AdvReac nauseated Verified 04/19/21 13:54 Home Medications Medication Instructions Recorded Confirmed Type nitroglycerin 0.4 mg sublingual 0.4 mg sublingual UD PRN Chest Pain 11/22/18 04/19/21 History tablet multivitamin 1 tab PO DAILY 12/17/18 04/19/21 History sennosides 8.6 mg tablet (Senokot) 17.2 mg PO QAM #30 tabs 03/22/21 04/19/21 Rx acetaminophen 500 mg tablet 1,000 mg PO DIRECTED Pain 04/19/21 04/19/21 History (Tylenol Extra Strength) aspirin 81 mg tablet,delayed 81 mg PO DAILY #30 tabs 04/19/21 04/19/21 Rx release celecoxib 100 mg capsule (Celebrex) 100 mg PO DAILY #90 caps 04/19/21 Rx docusate sodium 100 mg capsule 100 mg PO TID Constipation 04/19/21 04/19/21 History furosemide 20 mg tablet 20 mg PO DAILY #90 tabs 04/19/21 04/19/21 Rx gabapentin 100 mg capsule 100 mg PO BID #180 caps 04/19/21 04/19/21 Rx levothyroxine 112 mcg tablet 112 mcg PO DAILY #90 tabs 04/19/21 Rx oxycodone 10 mg tablet 10 mg PO Q6H PRN pain (scale score 04/19/21 04/19/21 Rx 4-6) #90 tabs tramadol 50 mg tablet 50 mg PO QID PRN pain #120 tabs 04/19/21 04/19/21 Rx Patient History Medical History Atrial fibrillation CAD (coronary artery disease) NSTEMI, s/p proximal LAD stent in 2010 Compression fracture of L1 lumbar vertebra Coronary artery disease Encounter for pre-operative examination Epistaxis Hx of myocardial infarction Hyperlipidemia Hypertension Hypothyroidism Peripheral edema Pseudogout of right wrist Pseudogout of right wrist Severe aortic stenosis Severe mitral insufficiency Severe tricuspid valve insufficiency Thrombocytopenia Surgical History H/O bilateral hip replacements H/O neck surgery History of cataract surgery Family History Father Lung disease Sister Diabetes Breast cancer Other Heart disease Denies family history of Ovarian cancer Prostate cancer Coronary heart disease Colorectal cancer Cancer Social History Smoking Status: Never smoker Second Hand Exposure: No; Hx Alcohol Use: No Hx Substance Use: No Preferred Language: British Communication Ability: Effective Visual Impairment: No Limitations Hearing Ability: Normal [employer] Required: No Beliefs That Will Affect Care: None marital status: / Current Living Situation: Alone Current Living Situation Comment: daughter lives close by current occupational status: retired How many Children do You have: 3 Feels Safe at Home: Yes Childhood Exposure to Second-Hand Smoke: Yes caffeine: Yes Dental Care, Regularly: No Physical Activity Frequency: Does not Exercise Seatbelt Use: always Sunscreen Use: Yes Assistive Devices: Denture - Upper and Denture - Lower Physical Exam Physical Exam: L rapid rhino in place, inflated No epistaxis Oropharynx clear NAD Results & Data ([facility]) Vital Signs (Past 12 Hours) Vital Signs Temp Pulse Pulse Resp BP BP Pulse Ox 05/08/22 05:46 72 05/08/22 03:11 36.5 C 70 18 147/85 H 99 05/08/22 03:11 36.4 C L 70 18 147/85 H 99 05/08/22 02:00 68 12 154/84 H 98 05/08/22 00:03 67 16 163/86 H 99 05/07/22 22:16 36.8 C 70 18 149/75 H 97 O2 Del Method 05/08/22 05:46 05/08/22 03:11 Room Air 05/08/22 03:11 Room Air 05/08/22 02:00 Room Air 05/08/22 00:03 Room Air 05/07/22 22:16 Room Air PG Care Time/CCT Total # of Minutes Spent Total Time Spent with Patient: Total time spent is greater than 50% in coordination of care (as documented) at patient's floor/unit and/or counseling patient: Coding Level of Care Code 81331 Initial Inpt Care Lvl 2 Diagnoses Acute anterior epistaxis R04.0
[2022-05-08] MEDS: DOCUSATE SODIUM 100 MG CAP PO SCH ×2 (08:06→13:55)
--- NOTE | 2022-05-08 08:52 | XRay Report ---
XR chest 1V portable CLINICAL HISTORY: weakness TECHNIQUE: Single frontal radiograph of the chest was obtained. Comparison: Comparison is made to chest radiograph 04/21/2019 FINDINGS: No lines and tubes are seen. Cardiomegaly is noted. Prominence and cephalization of the vasculature i s seen. No evidence of pleural effusion or pneumothorax. IMPRESSION: Cardiomegaly and mild pulmonary edema is noted. ACT 112: Negative or not required by law. Electronically signed by: Champ Meyer M.D. 05/08/2022 8:50 AM
[2022-05-08] MEDS ORDERED: GABAPENTIN 100 MG CAP PO SCH (09:00)
[2022-05-08] MEDS ORDERED: SENNA 8.6 MG TAB PO SCH (09:00)
[2022-05-08] MEDS ORDERED: FUROSEMIDE 20 MG TAB PO SCH (09:00)
--- NOTE | 2022-05-09 05:05 | Electrocardiogram Report ---
Test Reason : Blood Pressure : / mmHG Vent. Rate : 069 BPM Atrial Rate : 075 BPM P-R Int : 000 ms QRS Dur : 084 ms QT Int : 408 ms P-R-T Axes : 000 165 054 degrees QTc Int : 437 ms Atrial fibrillation Right axis deviation Anterior infarct (cited on or before 18-MAR-2021) Abnormal ECG When compared with ECG of 19-JAN-2022 12:24, Questionable change in QRS axis Confirmed by Robe Wei ([id number]) on 05/09/2022 5:05:15 AM Referred By: REFERRED SELF Confirmed By:Robe Wei
--- NOTE | 2022-05-10 15:37 | Emergency Department Note ---
ED Visit Note I was consulted by the Advanced Practice Provider Angela Anthony PA-C. I saw the patient personally and performed a substantive portion of the visit. This includes aspects of the HPI, MDM, diagnostic interpretations, and disposition/plan. Patient presented for epistaxis and was admitted due to concern for weakness. .
--- NOTE | 2022-05-15 14:16 | Discharge Summary ---
Date of Service May 08, 2022 Admission HPI Per Admitting Provider Ale Escobedo is an 86yo female with history of AF, CAD, HTN, HLP and severe presenting with recurrent epistaxis. Patient has experienced nosebleeds for years. She was hospitalized in March 2021 for persistent epistaxis that occurred while on Eliquis anticoagulation and ASA. During that episode she was treated with Afrin nasal spray, rhino rocket and ultimately taken to the OR for cautery with Dr. Davis. She had another episode of epistaxis in January 2022 - she was treated in the ER and discharged several times before the bleeding stopped. She was seen by ENT in clinic on 01/19/22. It was recommended that she use daily nasal irrigation, humidified air, vaseline and Oxymetazoline spray as needed for bleeding. She was doing these interventions at the long-term but they unfortunately ran out of Afrin. This afternoon around 16:30 the patient started having a nosebleed. Patient's daughter was contacted by the long-term around 18:00. Daughter brought some Afrin and Vaseline and pressure was applied in attempt to stop the bleeding without resolve, therefore they came to the ER. In the ER patient was noted to have epistaxis from left nostril. Copious amount of blood noted in the left nostril with no septal hematoma. . She was treated with TXA an a rhino-rocket was placed. No further bleeding at this time Patient denies trauma or digital manipulation of her nose. She denies chest pain, cough, nausea. She does have some generalized weakness as well as persistent SOB and SCHNEIDER. No additional complaints at this time. ER Course: TXA, Cephalexin Principal Diagnosis epistaxis Discharge Exam General: frail appearing elderly patient resting comfortably, NAD, rhino-rocket present in left nare Skin: warm, dry, intact, no rashes or lesions HEENT: NC/AT, PERRL, EOMI, anicteric sclera, conjunctiva without injection, external ear normal to inspection and nontender, rhino rocket present in left nare, moist mucus membranes, dentition intact, no oropharyngeal lesions, no blood in the posterior pharynx, neck supple, trachea midline, no LAD, no thyromegaly, no JVD Heart: +S1/S2, regular, no m/r/g Lungs: equal air entry bilaterally, no rales/rhonchi/wheezes Abd: +BS, soft, NT/ND, no masses/organomegaly/ascites Ext: warm, 2+ pulses in UE/LE bilaterally, no clubbing/cyanosis or edema Neuro: nonfocal, patient AA&O x 4, speech intact, no facial droop, moving all extremities on command with equal strength 5/5 Discharge Data Allergies Allergy/AdvReac Type Severity Reaction Status Date / Time doxycycline AdvReac nauseated Verified 05/11/22 13:29 Consultations 05/08/22 01:46 ED Decision to Admit Stat 05/08/22 03:11 Consult Otolaryngology (Head and Neck) Routine Hospital Course (1) Epistaxis: 86yo female with recurrent epistaxis. HD stable at present. H/H near baseline at 12.7/38.9. Hemostasis achieved with TXA and placement of a rhino-rocket -Monitor CBC -ENT consultation No further bleeding since packing placed. -Keep nasal packing in place for 3-5 days (OK for d/c from hospital with rapid rhino) -Nasal saline spray QID to both nares -Would avoid baseline afrin at this time given good hemostasis and troponin bump -Keflex while packing in place -F/u for packing removal - [phone] (2) Coronary artery disease: Patient with CAD -Hold ASA for now (3) Hypertension: Blood pressure mildly elevated. Patient is not presently on any anti- hypertensive agents. Presently 154/84 -Monitor BP (4) Hypothyroidism: Chronic. -Continue Synthroid (5) Atrial fibrillation: Rate controlled. No anticoagulation due to history of bleeding Total Time Total Time Spent Total Time Spent (In Minutes): 35 Discharge Plan Discharge Items Patient Disposition: Personal Half-Way Reason For Visit: EPISTAXIS Discharge Diagnosis: epistaxis Condition on Discharge: Fair Activity: Resume your previous activity Non-emergency contact: Primary Care Provider Call non-emergency contact if: you have any medication questions Follow-up/Referrals: MAX DÍAZ ALDAIR [Primary Care Provider] - Diet: Regular Addtl Attending Provider Instructions: -Keep nasal packing in place for 3-5 days (OK for d/c from hospital with rapid rhino) -Nasal saline spray 4 times a day to both nasal openings. -Would avoid afrin at this time -Keflex(antibiotic) while packing in place -Followup for packing removal - [phone] Start lasix tomorrow, recommend followup with PCP in 1-2 weeks to reassess your kidney numbers Pending Studies at Discharge: No Stand-Alone Forms: [facility], Smoking Cessation Skilled Items Patient informed of condition?: No DNR: Yes Discharge Level of Care: Skilled Communicable Disease: No Discharge Prognosis: Stable Lines: None Urinary Catheter: No Medications and DC Order Prescriptions: New cephalexin 250 mg capsule 250 mg PO Q6H Qty: 12 0RF Saline Mist 0.65 % aerosol,spray 1 spray intranasal QID Qty: 44 0RF Rx Instructions: Both nares. 1 spray in both nares 4 times a day Continued levothyroxine 112 mcg tablet 112 mcg PO DAILY Qty: 90 1RF nitroglycerin 0.4 mg tablet, sublingual 0.4 mg SL UD PRN (Reason: Chest Pain) docusate sodium 100 mg capsule 100 mg PO TID gabapentin 100 mg capsule 100 mg PO BID Qty: 180 3RF tramadol 50 mg tablet 50 mg PO QID PRN (Reason: pain) Qty: 120 0RF oxycodone 10 mg tablet 10 mg PO Q6H PRN (Reason: pain (scale score 4-6)) Qty: 90 0RF multivitamin tablet 1 tab PO DAILY sennosides [Senokot] 8.6 mg Tablet 17.2 mg PO QAM Qty: 30 0RF acetaminophen [Tylenol Extra Strength] 500 mg tablet 1,000 mg PO DIRECTED Rx Instructions: 6 tablets a day per [facility] Changed furosemide 20 mg tablet 20 mg PO Q2D Qty: 90 1RF Discontinued celecoxib [Celebrex] 100 mg capsule 100 mg PO DAILY Qty: 90 1RF aspirin 81 mg tablet,delayed release (DR/EC) 81 mg PO DAILY Qty: 30 0RF No Action mupirocin 2 % ointment 1 applic topical BID Qty: 15 2RF Rx Instructions: APPLY TO AFFECTED NOSTRIL TWICE DAILY Discharge Orders: Discharge Order (Routine); Ordered 05/08/22 Ordered By: Jose Angel Nogueira Admission Data Admit Date/Time: 05/08/22 02:00 Attending Provider: Jose Angel Nogueira Admit Provider: Ingris Marley [facility] Other Providers: Austyn Schultz ; Ingris Marley Other Interventions: Discharge Summary Assessment (RN) Last Done: 05/08/22 16:42 Coding Level of Care Code OBSERV/HOSP SAME DATE LVL 3 Diagnoses Epistaxis R04.0 Coronary artery disease I25.118 Coronary Disease-Associated Artery/Lesion type: [place] artery [place] vs. transplanted heart: [place] heart Associated angina: with stable angina Hypertension I10 Hypertension type: essential hypertension Hypothyroidism E03.9 Hypothyroidism type: unspecified Atrial fibrillation I48.91
== END 2022-05-08 18:06 | disposition home or self-care (01) ==
LOC: 2S 22:22 → ED 22:22 → SUATTDRO 05-08 02:00 → 2S 05-08 03:06
DX: R53.1 Weakness; I35.0 Nonrheumatic aortic (valve) stenosis; I10 Essential (primary) hypertension; Z88.1 Allergy status to other antibiotic agents; Z79.899 Other long term (current) drug therapy; E03.9 Hypothyroidism, unspecified; I25.10 Atherosclerotic heart disease of native coronary artery without angina pectoris; Z79.82 Long term (current) use of aspirin; I25.118 Atherosclerotic heart disease of native coronary artery with other forms of angina pectoris; I48.91 Unspecified atrial fibrillation; R77.8 Other specified abnormalities of plasma proteins; Z79.890 Hormone replacement therapy; R04.0 Epistaxis